=== PATIENT | female | born 1955 | race Caucasian/White ===

== ENCOUNTER 2019-12-26 14:57 | Outpatient (REF) | payer OTHER, SELFPAY ==
--- NOTE | 2019-12-26 15:00 | MM_ITS ---
EXAMINATION: MM SCREENING DIGITAL BREAST TOMOSYNTHESIS, BILATERAL CLINICAL INFORMATION: Screening. Asymptomatic. The lifetime risk of breast cancer based on the Tyrer-Cuzick Model is 17%. COMPARISON: Mammography: 12/20/2018, 11/09/2017, 11/27/2016, 11/02/2016 TECHNIQUE: Digital breast tomosynthesis is performed in both the craniocaudal and mediolateral oblique views along with computer-aided detection (CAD). Synthesized 2D images are generated from the tomosynthesis. FINDINGS: There are scattered areas of fibroglandular density (ACR BI-RADS breast composition Category b). There is no significant mass or architectural abnormality. Small circumscribed nodule anterior medial left breast again noted. No developing density. Calcifications upper outer right breast are more coarse. The axilla and skin contours are unremarkable. MM/MM tomosynthesis screening BI IMPRESSION: No significant changes from prior exam. ASSESSMENT: BI-RADS 2: Benign RECOMMENDATION: Routine annual mammography screening. This patient's information was entered into a reminder system with a target due date for their next mammogram.
== END 2019-12-26 14:58 | disposition home or self-care (01) ==
LOC: HO.MAMMO 14:57
PROVIDERS: PCP Internal Medicine; Visit Provider Internal Medicine
DX: Z12.31 Encounter for screening mammogram for malignant neoplasm of breast (principal)
CPT/HCPCS: 77063; 77067

== ENCOUNTER 2021-01-03 06:25 | Outpatient (REF) | payer OTHER, SELFPAY ==
[2021-01-03 06:32] LABS: MANUAL DIFF FLAG NO
[2021-01-03 07:11] LABS: Basophils Percent Auto 0.6 % (0-2); Eosinophils Absolute Auto 0.1 X10*3/uL (0.0-0.4); Eosinophils Percent Auto 2.1 % (0-4); Hemoglobin 12.9 g/dl (12.0-16.0); Imm Gran Abs Auto 0.01 X10*3/uL (0.00-0.03); Imm Gran Pct Auto 0.2 % (0.0-0.4); Lymphocytes Absolute Auto 2.2 X10*3/uL (1.2-4.9); Lymphocytes Percent Auto 32.6 % (20-40); Mean Corpuscular HGB Conc 33.9 g/dl (31.0-35.0); Mean Corpuscular Hemoglobin 30.8 pg (27.0-33.0); Mean Corpuscular Volume 90.7 fL (80.0-98.0); Mean Platelet Volume 9.4 fL (9.4-12.3); Monocytes Absolute Auto 0.3 X10*3/uL (0.1-1.2); Neutrophils Percent Auto 59.5 % (45-73); Platelet Count 348 X10*3/uL (160-400); Red Blood Count 4.19 X10*6/uL (4.20-5.50); Red Cell Distribution Width 13.3 % (11.0-16.0); White Blood Count 6.7 X10*3/uL (4.8-10.8)
[2021-01-03 07:37] LABS: Alanine Aminotransferase 19 U/L (0-31); Alkaline Phosphatase 93 U/L (39-117); Anion Gap 11 (12-20); Aspartate Amino Transferase 12 U/L (5-31); Bilirubin Total 0.5 mg/dL (0.0-1.0); Blood Urea Nitrogen 9 mg/dL (9-16); Calcium 8.9 mg/dL (8.4-10.2); Carbon Dioxide 24 mmol/L (22-29); Chloride 108 mmol/L (96-108); Cholesterol 203 mg/dL; Estimated Glomerular Filt Rate > 60; Glucose Fasting 100 mg/dL (60-99); HDL Cholesterol 49 mg/dL; LDL Cholesterol Calculated 125 mg/dl; Potassium 4.3 mmol/L (3.3-5.1); Sodium 139 mmol/L (135-145); Total Protein 6.6 g/dL (6.5-8.0); Triglycerides 149 mg/dL
[2021-01-03 08:05] LABS: TSH reflex Free T4 3.15 uIU/mL (0.32-4.0)
[2021-01-03 08:19] LABS: Appearance Urine CLEAR; Color Urine YELLOW; Glucose Urine UA NEG (NEG); Leukocyte Esterase Urine NEG (NEG); Nitrite Urine NEG (NEG); PH 5.5 (5.0-8.0); Specific Gravity - Urine >= 1.030 (1.005-1.025); UACC Culture Trigger NO; Urine Blood TRACE (NEG); Urine Ketones NEG (NEG); Urine Protein NEG (NEG-TRACE)
[2021-01-03 08:54] LABS: Bacteria Urine TRACE /LPF; RBC Urine 0-2 /HPF (0); Squamous Epithelial Cell Urine 2+ /LPF
== END 2021-01-03 06:26 | disposition home or self-care (01) ==
LOC: HO.LAB 06:25
PROVIDERS: PCP Internal Medicine; Visit Provider Internal Medicine
DX: E78.00 Pure hypercholesterolemia, unspecified (principal); R19.7 Diarrhea, unspecified; R00.2 Palpitations
CPT/HCPCS: 36415; 80053; 80061; 81001; 81003; 84443; 85025

== ENCOUNTER → 2021-02-02 13:34 | Outpatient (BNVA) | payer OTHER, SELFPAY | PROVIDERS: PCP Internal Medicine; Referring Provider Internal Medicine; Visit Provider Internal Medicine | DX: R07.2 Precordial pain (principal); R06.02 Shortness of breath; R00.2 Palpitations; I10 Essential (primary) hypertension | CPT/HCPCS: 93005 ==

== ENCOUNTER → 2021-03-22 13:38 | Outpatient (REF) | payer OTHER, SELFPAY ==
--- NOTE | 2021-03-22 13:41 | CA_ITS ---
Transthoracic Echocardiogram Patient (Last, First, Middle): Franca Neri A Gender: Female Date of : 1955 Age: 66 Procedure Date: 03/22/2021 Procedure Type: Transthoracic Echocardiogram Location: OP Height: 154.94 cm Weight: 63.5 kg BSA: 1.62 m2 Heart Rate: bpm BP: 134 / 80 mmHg Synthetic Filament Extruder: Referring MD: Daniel Hogue MD Design Engineer Marine Equipment: Guanaco Smyth MD Symptoms: R06.02 - Shortness of breath Study Quality: Fair ECG Rhythm: Sinus Conclusions: - 1. Normal LV systolic function with impaired relaxation filling pattern 2. Normal cardiac valvular Doppler 3. Normal RV systolic pressure 4. No pericardial effusion Findings Left Ventricle Normal left ventricular size, thickness, and systolic function. The visually estimated ejection fraction is between 60-65%. Spectral Doppler is indicative of an impaired relaxation filling pattern. E/E prime ratio is between 8 and 15 consistent with indeterminate filling pressures. Right Ventricle Normal right ventricular cavity size and systolic function. Atria Both atria are normal in size. Interatrial shunt cannot be excluded. Aortic Valve The aortic valve was not well visualized. There is no aortic valve stenosis. There is no aortic valve regurgitation. Mitral Valve Normal mitral valve structure and function. There is mild mitral annular calcification. There is trace mitral valve regurgitation. There is no mitral valve stenosis. Pulmonic Valve The pulmonic valve was not well visualized. Tricuspid Valve Likely normal tricuspid valve structure and function. There is trace tricuspid valve regurgitation. The right ventricular systolic pressure is normal. The right ventricular systolic pressure is 17 mmHg. There is no evidence of pulmonary hypertension. Great Vessels All visible segments of the aorta are normal in size. The pulmonary artery was not well visualized. Venous The inferior vena cava is normal in size and collapses greater than 50% with inspiration. Pericardium/Pleural There is no evidence of pericardial effusion. Prior Study Comparison No prior study available for comparison. Measurements 2D Linear Measurements IVSd: 0.83 0.6-0.9/0.6-1.0 cm LVIDd: 3.94 3.9-5.3/4.2-5.9 cm LVIDd Index: 2.43 2.4-3.2/2.2-3.1 cm/m2 LVIDs: 2.34 2.0-3.6 cm LVPWd: 0.94 0.7-1.1 cm Ao Root: 2.80 2.1-3.5 cm LA Diam: 3.30 2.7-3.8/3.0-4.0 cm LAIDs Index: 2.04 1.5-2.3 cm/m2 LV Mass: 130.01 67-162/88-224 g LV Mass Index: 80.25 43-95/49-115 g/m2 LVOT Diam: 1.90 3.0+(-)1.3 cm 2D Systolic Function EF 4C: 55.90 >55% EF 2C: 68.00 >55% EF BiP: 62.50 >55% Mitral Valve MV Pk E: 0.64 MV PK A: 0.94 MV Decel Time: 273.00 E/A: 0.70 E'Lateral: 7.07 E'Medial: 6.74 E/E' Med: 9.50 E/E' Lat: 9.00 PHT: 80.00 MVA PHT: 2.75 Decel [place]: 2.34 Aortic Valve AoV Pk Abiodun: 1.38 AoV Mn Abiodun: 0.87 AoV VTI: 0.33 AoV Pk Grad: 8.00 Aov Mn Grad: 4.00 PASCUAL Cont.VTI: 2.06 LVOT LVOT Pk Abiodun: 1.05 LVOT Mn Abiodun: 0.62 LVOT VTI: 0.24 LVOT Pk Grad: 4.00 LVOT Mn Grad: 2.00 LVOT Diam: 1.90 LVOT Area: 2.84 Diastolic Function MV Pk E: 0.64 MV Pk A: 0.94 E/A: 0.70 E'Medial: 6.74 E/E' Med: 9.50 E' Laterial: 7.07 E/E' Lat: 9.00 Tricuspid Valve TR Pk Abiodun: 1.87 TR Pk Grad: 14.00 RA Press: 3.00 RVSP: 17.00 Great Vessels Aorta Ao Root-2D: 2.80 2.0-3.7 cm Ao Asc: 3.60 2.1-3.4 cm Pulmonary Valve PV Pk Abiodun: 0.75 Peak PV Grad: 2.00 Updated in Other Vendor System with Status of Final Guanaco Smyth MD electronically signed on 03/23/2021 6:49:36 PM with status of Final
--- NOTE | 2021-03-22 13:41 | HM_ITS ---
Total monitoring time 3 days. Underlying rhythm is sinus. Minimum heart rate 45/Min. Maximum 115/Min. Average 65/Min. No atrial fibrillation or flutter or AV blocks or pauses. Rare supraventricular ectopy with minimal burden. 3 supraventricular episodes, longest 14 beats. Rare ventricular ectopy. No patient events. MTDD
[2021-03-22 14:30] LABS: C Reactive Protein 0.34 mg/dL (< or = 0.50)
[2021-03-22 14:49] LABS: Erythrocyte Sedimentation Rate 16 MM/HR (0-20)
[2021-03-25 15:46] LABS: Transglutaminase IgA <1.0 U/mL
[2021-03-26 13:46] LABS: Endomysial IgA Antibody Negative (Negative)
== END ==
LOC: HO.CARD 13:38
PROVIDERS: Physician Assistant; Visit Provider Internal Medicine
DX: R06.02 Shortness of breath (principal); R00.2 Palpitations; K52.9 Noninfective gastroenteritis and colitis, unspecified; Q24.9 Congenital malformation of heart, unspecified
CPT/HCPCS: 36415; 85652; 86140; 86231; 86364; 93242; 93306

== ENCOUNTER 2021-03-25 07:25 | Outpatient (REF) | payer OTHER, SELFPAY ==
[2021-03-25 12:13] LABS: Leukocytes Stool Qualitative NEGATIVE (NEGATIVE)
[2021-03-31 23:21] LABS: Calprotectin, Fecal <5 mcg/g
== END 2021-03-25 07:26 | disposition home or self-care (01) ==
LOC: HO.WFDLNP 07:25
PROVIDERS: Visit Provider Physician Assistant
DX: R19.7 Diarrhea, unspecified (principal)
CPT/HCPCS: 83993; 87045; 87046; 87329; 89055

== ENCOUNTER → 2021-04-04 07:54 | Outpatient (REF) | payer OTHER, SELFPAY ==
--- NOTE | ~2021-04-04 | NM_ITS ---
Exercise Myocardial perfusion study Indication: Precordial chest pain to evaluate for myocardial ischemia Technique: The patient was brought in for an exercise perfusion study on 04/04/2021. Patient performed exercise as per Rony protocol and was injected 25 mCi of sestamibi was given intravenously one target HR was achieved. Images were obtained using the SPECT gamma camera interlaced with the gating device. Images were obtained in supine position. Resting perfusion study was performed on 04/05/2021. Patient was administered 25 mCi of sestamibi intravenously at rest. Images were then obtained in supine position. Images obtained with and without CT attenuation. Total DLP 85 mGy-cm. Images were processed with the software and compared side to side in short axis, horizontal long axis and vertical long axis views. Findings: The stress perfusion study showed both attenuated as well as non attenuated corrected images show normal uptake of radiotracer in all segments of LV myocardium.. The gated study shows normal LV systolic function with calculated LVEF of 67%. LV cavity is normal in size. The gated study shows normal systolic wall thickening and contraction of all segments. There is no transient ischemic dilation. Resting study shows non attenuated images show normal uptake of radiotracer in all segments myocardium. Gating at rest reveals normal systolic wall motion with ejection fraction at 64%. The findings are consistent with normal myocardial perfusion. NM/NM cardiolite stress test Impression: 1. Normal myocardial perfusion 2. Gated LVEF is 67% 3. Transient ischemic dilatation not present Stress EKG is equivocal for ischemia
--- NOTE | 2021-04-04 07:57 | CA_ITS ---
Acquisition Time: 2021-04-04 07:53:07 Total Exercise Time: 00:04:03 Test Indications: Dyspnea Medications: ALBUTEROL BUPRPION COLEEVALAM Protocol: BRETT Max HR: 222 BPM 142% of Pred: 156 BPM Max BP: 188/094 mmHG Max Work Load: 5.4 METS Exercise stress test with exercise 4 min 3 sec of Brett protocol, with report of moderate shortness of breath, dizziness, mild tightness in chest and significant artifact on monitor. Treadmill placed in recovery, Heart rate up to 95% MPHR and held > 85% for next 2 minutes as she marched in place. Nuclear injection was completed. Normotensive response to exercise, without noted arrythmia, with artifiact at peak exercise, without EKG changes of ischemia in recovery. In recovery her symptoms fully resolved. Nuclear images pending. Test reviewed with Dr Nuñez Referred By: Daniel Hogue Overread By: RAMESH COOPER
== END ==
LOC: HO.CARD 07:54
PROVIDERS: PCP Internal Medicine; Visit Provider Internal Medicine
DX: R07.2 Precordial pain (principal)
CPT/HCPCS: 78452; 93017; A9500

== ENCOUNTER → 2021-04-19 13:27 | Outpatient (BNVA) | payer OTHER, SELFPAY | PROVIDERS: PCP Internal Medicine; Referring Provider Internal Medicine; Visit Provider Physician Assistant ==

== ENCOUNTER → 2021-04-26 13:45 | Outpatient (BNVA) | payer OTHER, SELFPAY | PROVIDERS: PCP Internal Medicine; Referring Provider Internal Medicine; Visit Provider Internal Medicine ==

== ENCOUNTER 2021-07-14 10:20 | Day surgery (SDC) | payer OTHER, SELFPAY ==
[2021-07-11 11:27] VITALS: BMI 27.0
--- NOTE | 2021-07-13 09:38 | HO.ANESPROP2 ---
Documented by User: Jane Car NP 07/13/21 09:41 HPI - Anesthesia Eval Consult details Narrative: 66yo F for Upper Endoscopy and Colonoscopy Cardiac cleared [facility] Active Problems Active Problems: All Active Problems (Updated 05/02/21 @ 04:00 by Fran Chua MD) Acid reflux (Acute) Arthritis (Acute) Cardiac abnormality (Acute) Chronic diarrhea (Acute) SOB (shortness of breath) (Acute) Precordial chest pain (Acute) Essential hypertension (Acute) Overweight (BMI 25.0-29.9) (Acute) Anxiety (Acute) Pure hypercholesterolemia (Acute) Frequent diarrhea (Acute) Palpitations (Acute) Psoriasis (Acute) Past Medical History Medical History (Updated 05/02/21 @ 04:00 by Fran Chua MD) Anxiety Arthritis Cardiac abnormality Fibromyalgia MGUS (monoclonal gammopathy of unknown significance) Neuropathy of right lower extremity Overweight (BMI 25.0-29.9) Psoriasis Pure hypercholesterolemia Family History Family History Father Mother Bladder cancer Arthritis Sister Breast cancer Sister Breast cancer Maternal Aunt Breast cancer Surgical History Surgical History History of bowel resection History of removal of cyst History of tonsillectomy Status post cryoablation Social History Social History Housing: House Alcohol intake: never Patient Tobacco Use Status: Former Tobacco user Tobacco use type: Cigarette e-Cigarette/Vaping Use: Never Used Second Hand Smoke Exposure: No Use of substances other than those prescribed or required for medical reasons: No Are you DNR?: No Advance Directives: No Advance Directives Information Provided: Yes service: No Current occupational status: employed Cognitive needs: No Hearing needs: No Vision needs: No Meds Allergies Allergy/AdvReac Type Severity Reaction Status Date / Time prochlorperazine Allergy Severe SEIZURES Verified 05/01/21 23:55 [From COMPAZINE] Home Medications Medication Instructions Recorded Confirmed Last Taken Type diphenoxylate-atropine 2.5 1 tab PO DAILY PRN 01/02/20 07/11/21 Unknown History mg-0.025 mg tablet ibuprofen 600 mg tablet 1 tab PO QID PRN 01/02/20 07/11/21 Unknown History amlodipine 5 mg tablet 1 tab PO DAILY 07/11/21 07/11/21 Unknown History Exam Exam Date and Time: July 13, 2021 0938 Height,Weight and Vital Signs: Height 5 ft 1 in Weight 64.864 kg Narrative Narrative: EKG 01/2021 sinus rhythm at 62/Min; no significant ST-T changes and otherwise unremarkable Holter 02/2021 Total monitoring time 3 days.? Underlying rhythm is sinus.? Minimum heart rate 45/Min.? Maximum 115/Min.? Average 65/Min.? No atrial fibrillation or flutter or AV blocks or pauses.? Rare supraventricular ectopy with minimal burden.? 3 supraventricular episodes, longest 14 beats.? Rare ventricular ectopy.? No patient events. ECHO 02/2021 Conclusions: - 1. Normal LV systolic function with impaired relaxation filling pattern? 2. Normal cardiac valvular Doppler ? 3. Normal RV systolic pressure ? 4.? No pericardial effusion? ? NM cardiolite stress test 03/2021 Impression: ? 1.? Normal myocardial perfusion 2.? Gated LVEF is 67% 3. Transient ischemic dilatation not present ? Stress EKG is equivocal for ischemia Assessment and Plan Assessment Anesthesia Assessment: Chart Reviewed Documented by User: Sha Montes De Oca MD 07/14/21 14:03 [facility] Past Medical History Medical History (Updated 05/02/21 @ 04:00 by Fran Chua MD) Anxiety Arthritis Cardiac abnormality Fibromyalgia MGUS (monoclonal gammopathy of unknown significance) Neuropathy of right lower extremity Overweight (BMI 25.0-29.9) Psoriasis Pure hypercholesterolemia Family History Family History Father Mother Bladder cancer Arthritis Sister Breast cancer Sister Breast cancer Maternal Aunt Breast cancer Family history of problems with anesthesia: No Surgical History Surgical History History of bowel resection History of removal of cyst History of tonsillectomy Status post cryoablation History of Problems with Anesthesia: No Social History Social History Housing: House Alcohol intake: never Patient Tobacco Use Status: Former Tobacco user Tobacco use type: Cigarette e-Cigarette/Vaping Use: Never Used Second Hand Smoke Exposure: No Use of substances other than those prescribed or required for medical reasons: No Are you DNR?: No Advance Directives: No Advance Directives Information Provided: Yes service: No Current occupational status: employed Cognitive needs: No Hearing needs: No Vision needs: No Meds Allergies Allergy/AdvReac Type Severity Reaction Status Date / Time prochlorperazine Allergy Severe SEIZURES Verified 05/01/21 23:55 [From COMPAZINE] Home Medications Medication Instructions Recorded Confirmed Last Taken Type diphenoxylate-atropine 2.5 1 tab PO DAILY PRN 01/02/20 07/11/21 Unknown History mg-0.025 mg tablet ibuprofen 600 mg tablet 1 tab PO QID PRN 01/02/20 07/11/21 Unknown History amlodipine 5 mg tablet 1 tab PO DAILY 07/11/21 07/11/21 Unknown History Exam Airway Loose/Missing/Broken Teeth: Yes Assessment and Plan Assessment Anesthesia Assessment: Anesthesia Plan Discussed Final Anesthetic Review Family History of Problems with Anesthesia: No History of Problems with Anesthesia: No NPO: Yes ASA Class: III Final Preanesthetic Review: No Changes in Pt Med Stat, Meds/Allgs Chart Reviewed, Consent Obtained/Reviewed and Anes Risks/Benef Reviewed Patient Risk: Intermediate Procedure Risk: Low Anesthetic Plan Anesthetic Plan: MAC: Disposition: Standard PACU
[2021-07-14 10:29] VITALS: BMI 26.4
[2021-07-14 10:38] VITALS: BP 151/91; PULSE 79; RESP 16; TEMP 36.6; O2SAT 96
[2021-07-14] MEDS: Lactated Ringers 1,000 ML 100 ML IVCONT (10:52)
--- NOTE | 2021-07-14 12:29 | P.HPSUR_ITS ---
Pre-Procedural Eval Section A Date of Service: 07/14/21 Section B Chief Complaint: diarrhea Relevant Family History (Specify if Yes): No Relevant Social History: None Present Medications: see Short Stay Collaborative assessment Medical History: Significant History (Anxiety Arthritis Cardiac abnormality Fibromyalgia MGUS (monoclonal gammopathy of unknown significance) Neuropathy of right lower extremity Overweight (BMI 25.0-29.9) Psoriasis Pure hypercholesterolemia) History of Previous Operations: Relevant previous surgery/procedure and date(s) (History of bowel resection History of removal of cyst History of tonsillectomy Status post cryoablation) Allergies: Allergies Allergy/AdvReac Type Severity Reaction Status Date / Time prochlorperazine Allergy Severe SEIZURES Verified 05/01/21 23:55 [From COMPAZINE] Review of Systems Sugical H&P ROS: Negative: Constitution, Cardiovascular, Respiratory, Neurological, Psychiatric, Hem-Onc, Allergic/Immunologic, Gastrointestinal, Genitourinary, Musculoskeletal, Integumentary, Endocrine and Eyes/Ears/Nos e/Throat Exam Surgical H&P Exam: Normal: HEENT, Normal: Heart, Normal: Lungs, Normal: Extremities, Normal: Abdomen, Normal: Skin and Normal: Neurological Plan Diagnosis/Plan: Unchanged I have reviewed the history and physical and performed a pertinent physical examination on my patient. No changes have occurred unless specified.
--- NOTE | 2021-07-14 12:39 | PM.OP ---
Brief Operative Note Date of Service: 07/14/21 Pre-op diagnosis: diarrhea Post-op diagnosis: same Procedure: see op note Surgeon: Onesimo Melvin MD Anesthesia: MAC Was an Barrer And Tacker used for this Procedure?: No Estimated blood loss (mL): 0 Condition: stable Disposition: PACU
--- NOTE | 2021-07-14 12:39 | W.PM.OPN ---
Operative Note Operative Note Date of Service: 07/14/21 Narrative: Operative Information Procedure Description: EGD, Colonoscopy Indication: diarrhea Anesthesia: MAC FLEXIBLE TRANSORAL UPPER GASTROINTESTINAL ENDOSCOPY AND COLONOSCOPY PROCEDURE NOTE UPPER ENDOSCOPY Consent: Indications for the procedure and potential complications of bleeding, perforation, reaction to medications and missed diagnosis were discussed with the patient and informed consent was obtained. Instrument: Olympus GIF H 190 J mid size upper endoscope Monitoring: Vital signs and clinical assessment, continuous EKG monitoring, Pulse oximetry, Carbon Dioxide monitoring and blood pressure monitoring were done throughout the procedure. Procedure: The patient was placed in the left lateral decubitis position and pre-procedure medications were administered and a bite block was placed. The endoscope was inserted into the mouth and advanced under direct vision to the third part of duodenum. A careful inspection was made as the upper endoscope was withdrawn including a retroflexed examination of the proximal stomach; Findings and interventions are described below. Findings: Larynx:normal Esophagus: GE junction at 38 cm, diaphragm hiatus at 38 cm, mild esophagitis, bx taken from GEJ and random esophagus in separate jars Stomach: Mild erythematous mucosa. Biopsies were obtained. Grade 2 flap valve on retroflexed examination of the cardia. Duodenum: Normal bulb and descending duodenum, bx taken Intervention: Biopsies as noted above COLONOSCOPY Instrument: Olympus variable stiffness pediatric scope 190L Colonoscopy Monitoring: Vital signs and clinical assessment, continuous EKG monitoring, Pulse oximetry, Carbon Dioxide monitoring and blood pressure monitoring were done throughout the procedure. Colon withdrawal time was 15 minutes. Procedure: The patient was placed in the left lateral decubitis position and pre-procedure medications were administered. After a digital rectal examination of the ano-rectum, the video colonoscope was inserted into the rectum and advanced through the colon to the cecum/TI. The colonoscope was slowly withdrawn in a retrograde panoramic fashion and the colon mucosa was carefully examined including a retroflexed view of the rectum. Findings and interventions are described below. Procedure Difficulty:easy Findings: Terminal Ileum-normal, bx taken random colon bx taken Cecum:normal Ascending Colon: 6-8 mm sessile polyp injected with ORISE the removed with cold forceps Transverse Colon -normal Descending Colon:normal Sigmoid Colon: 7-9 mm sessile polyp removed with cold forceps Rectum: Retroflexion with small internal hemorrhoids, grade I Anorectum - normal Colon preparation: [place] Bowel Preparation Scale Right colon; 2 Transverse colon: 2 Left colon; 2 (0 = Unprepared colon segment with mucosa not seen due to solid stool that cannot be cleared. 1 = Portion of mucosa of the colon segment seen, but other areas of the colon segment not well seen due to staining, residual stool and/or opaque liquid. 2 = Minor amount of residual staining, small fragments of stool and/or opaque liquid, but mucosa of colon segment seen well. 3 = Entire mucosa of colon segment seen well with no residual staining, small fragments of stool or opaque liquid) Impression and Post Procedure Diagnosis: Endoscopy Findings: gastritis esophagitis Colonoscopy Findings: polyps internal hemorrhoids Plan: Await Pathology results Repeat Colonoscopy in 5-6 years if adenomatous. 10 yrs if benign or earlier if clinically indicated High fiber diet leaflet avoid straining at stool, epsom salts and sitz bath, anusol supps or cream consider trial of cholestyramine or welchol Above findings were reviewed with the patient and relevant handouts were provided if indicated.
[2021-07-14 13:31] VITALS: BP 131/83; PULSE 102; RESP 18; TEMP 36.4; O2SAT 95
[2021-07-14 13:46] VITALS: BP 130/90; PULSE 87; RESP 18; O2SAT 98
[2021-07-14] MEDS: ondansetron HCL 4 MG/2 ML VIAL IVPUSH (13:59)
[2021-07-14 14:01] VITALS: BP 147/81; PULSE 87; RESP 17; O2SAT 98
[2021-07-14 14:16] VITALS: BP 147/81; PULSE 84; RESP 20; TEMP 36.4; O2SAT 98
== END 2021-07-14 14:32 | disposition home or self-care (01) ==
PROVIDERS: PCP Internal Medicine; Visit Provider Internal Medicine Gastroenterology
PROC: (CPT 45380; principal; 2021-07-14 13:00)
DX: K52.9 Noninfective gastroenteritis and colitis, unspecified (principal); D12.2 Benign neoplasm of ascending colon; D12.5 Benign neoplasm of sigmoid colon; K64.0 First degree hemorrhoids; K21.9 Gastro-esophageal reflux disease without esophagitis; K29.50 Unspecified chronic gastritis without bleeding; K20.80 Other esophagitis without bleeding; E78.00 Pure hypercholesterolemia, unspecified; I10 Essential (primary) hypertension; R00.2 Palpitations; K44.9 Diaphragmatic hernia without obstruction or gangrene; D47.2 Monoclonal gammopathy; G57.91 Unspecified mononeuropathy of right lower limb; M79.7 Fibromyalgia; L40.9 Psoriasis, unspecified; Z79.1 Long term (current) use of non-steroidal anti-inflammatories (NSAID); Z79.899 Other long term (current) drug therapy; Z88.8 Allergy status to other drugs, medicaments and biological substances; Z90.49 Acquired absence of other specified parts of digestive tract; Z87.891 Personal history of nicotine dependence
CPT/HCPCS: 45380; 45381; 43239; 88305; 88341; 88342; J2250; J2405

== ENCOUNTER → 2021-07-28 14:10 | Outpatient (BNVA) | payer OTHER, SELFPAY | PROVIDERS: PCP Internal Medicine; Visit Provider Physician Assistant | DX: Z13.89 Encounter for screening for other disorder (principal) ==

== ENCOUNTER 2021-09-05 15:17 | Outpatient (REF) | payer OTHER, SELFPAY | END 2021-09-05 15:18 | disposition home or self-care (01) | LOC: HO.LAB 15:17 | PROVIDERS: PCP Internal Medicine; Visit Provider Otolaryngology | DX: J30.89 Other allergic rhinitis (principal) | CPT/HCPCS: 36415 ==

== ENCOUNTER 2021-10-13 15:30 | Outpatient (REF) | payer OTHER, SELFPAY ==
[2021-10-18 10:27] LABS: Immunoglobulin E 29 kU/L (<OR=114)
[2021-10-25 09:46] LABS: Prostaglandin D2 Random Urine 315 ng/liter
== END 2021-10-13 15:31 | disposition home or self-care (01) ==
LOC: HO.LAB 15:30
PROVIDERS: PCP Internal Medicine; Visit Provider Internal Medicine Gastroenterology
DX: D19.7 Benign neoplasm of mesothelial tissue of other sites (principal); D47.02 Systemic mastocytosis
CPT/HCPCS: 36415; 82785; 84150; 86003

== ENCOUNTER 2021-10-15 10:44 | Outpatient (REF) | payer OTHER, SELFPAY ==
[2021-10-22 11:26] LABS: Metanephrine, Free 24U 100 mcg/24 h (90-315); Normetanephrine, Free 24U 330 mcg/24 h (122-676); Total Metanephrine, Free 24U 430 mcg/24 h (224-832); Total Volume 24U 500 mL
== END 2021-10-15 10:45 | disposition home or self-care (01) ==
LOC: HO.LNP 10:44
PROVIDERS: Visit Provider Internal Medicine Gastroenterology
DX: D47.02 Systemic mastocytosis (principal); R19.7 Diarrhea, unspecified
CPT/HCPCS: 83835

== ENCOUNTER 2021-10-17 12:11 | Outpatient (REF) | payer OTHER, SELFPAY ==
[2021-10-24 15:23] LABS: Pancreatic Elastase-1 >500 mcg/g
== END 2021-10-17 12:12 | disposition home or self-care (01) ==
LOC: HO.LNP 12:11
PROVIDERS: Visit Provider Internal Medicine Gastroenterology
DX: D47.02 Systemic mastocytosis (principal); R19.7 Diarrhea, unspecified
CPT/HCPCS: 82656

== ENCOUNTER 2021-10-18 12:47 | Outpatient (REF) | payer OTHER, SELFPAY | END 2021-10-18 12:48 | disposition home or self-care (01) | LOC: HO.LAB 12:47 | PROVIDERS: PCP Internal Medicine; Visit Provider Internal Medicine Gastroenterology | DX: Z13.89 Encounter for screening for other disorder (principal) ==

== ENCOUNTER 2021-10-20 06:31 | Outpatient (REF) | payer OTHER, SELFPAY ==
[2021-10-20 06:42] LABS: MANUAL DIFF FLAG NO
[2021-10-20 07:30] LABS: Basophils Absolute Auto 0.1 X10*3/uL (0.0-0.2); Basophils Percent Auto 0.7 % (0-2); Eosinophils Absolute Auto 0.2 X10*3/uL (0.0-0.4); Eosinophils Percent Auto 2.4 % (0-4); Hemoglobin 13.2 g/dl (12.0-16.0); Imm Gran Abs Auto 0.03 X10*3/uL (0.00-0.03); Imm Gran Pct Auto 0.4 % (0.0-0.4); Lymphocytes Absolute Auto 3.4 X10*3/uL (1.2-4.9); Lymphocytes Percent Auto 41.8 % (20-40); Mean Corpuscular HGB Conc 33.8 g/dl (31.0-35.0); Mean Corpuscular Hemoglobin 31.1 pg (27.0-33.0); Mean Corpuscular Volume 91.8 fL (80.0-98.0); Mean Platelet Volume 10.6 fL (9.4-12.3); Monocytes Absolute Auto 0.5 X10*3/uL (0.1-1.2); Monocytes Percent Auto 5.9 % (2-11); Neutrophils Absolute Auto 3.9 x10*3/uL (2.0-8.3); Neutrophils Percent Auto 48.8 % (45-73); Platelet Count 295 X10*3/uL (160-400); Red Blood Count 4.25 X10*6/uL (4.20-5.50)
[2021-10-20 07:36] LABS: Alanine Aminotransferase 22 U/L (0-31); Albumin Level 3.9 g/dL (3.5-5.0); Alkaline Phosphatase 104 U/L (39-117); Anion Gap 16 (12-20); Aspartate Amino Transferase 18 U/L (5-31); Bilirubin Total 0.3 mg/dL (0.0-1.0); Blood Urea Nitrogen 12 mg/dL (9-16); Calcium 8.6 mg/dL (8.4-10.2); Carbon Dioxide 19 mmol/L (22-29); Chloride 109 mmol/L (96-108); Cholesterol 239 mg/dL; Estimated Glomerular Filt Rate > 60; Glucose Fasting 105 mg/dL (60-99); HDL Cholesterol 53 mg/dL; LDL Cholesterol Calculated 165 mg/dl; Potassium 4.6 mmol/L (3.3-5.1); Sodium 139 mmol/L (135-145); Triglycerides 106 mg/dL
[2021-10-20 07:59] LABS: TSH reflex Free T4 4.11 uIU/mL (0.32-4.0); Vitamin D 25-OH Total 25.4 ng/mL (>30)
[2021-10-20 08:16] LABS: Appearance Urine Clear; Color Urine Yellow; Glucose Urine UA Negative (Negative); Leukocyte Esterase Urine Negative (Negative); Nitrite Urine Negative (Negative); PH 5.5 (5.0-8.0); Specific Gravity - Urine >= 1.030 (1.005-1.025); Urine Blood Negative (Negative); Urine Ketones Negative (Negative); Urine Protein Negative (Neg-Trace)
[2021-10-20 08:44] LABS: Free T4 (Free Thyroxine) 0.79 ng/dL (0.71-1.85)
== END 2021-10-20 06:32 | disposition home or self-care (01) ==
LOC: HO.LAB 06:31
PROVIDERS: PCP Internal Medicine; Visit Provider Internal Medicine
DX: I10 Essential (primary) hypertension (principal); E55.9 Vitamin D deficiency, unspecified; E78.00 Pure hypercholesterolemia, unspecified
CPT/HCPCS: 36415; 80053; 80061; 81003; 82306; 84439; 84443; 85025

== ENCOUNTER 2021-10-21 09:10 | Outpatient (REF) | payer OTHER, SELFPAY ==
--- NOTE | ~2021-10-21 | MM_ITS ---
EXAMINATION: MM SCREENING DIGITAL BREAST TOMOSYNTHESIS, BILATERAL CLINICAL INFORMATION: Screening. Asymptomatic. The lifetime risk of breast cancer based on the Tyrer-Cuzick Model is 15%. COMPARISON: Mammography: 12/26/2019, 12/20/2018, 11/09/2017 TECHNIQUE: Digital breast tomosynthesis is performed in both the craniocaudal and mediolateral oblique views along with computer-aided detection (CAD). Synthesized 2D images are generated from the tomosynthesis. Additional left MLO view is provided. FINDINGS: There are scattered areas of fibroglandular density (ACR BI-RADS breast composition Category b). Parenchymal pattern is similar to prior exams and there is no interval mass or architectural abnormality or developing density. Incidental low left axillary tail nodes are again noted. The axilla and skin contours are unremarkable. No abnormal calcifications left breast. Right breast has grouped predominantly coarse calcifications mid upper outer quadrant with increased number versus superimposed digital processing artifact. Tomography suggesting possible vascular etiology. Patient will be recalled for additional imaging. MM/MM tomosynthesis screening BI IMPRESSION: Right: -Grouped possibly vascular calcifications mid upper outer right breast increased versus superimposed digital processing artifact. Left: -No mammographic evidence of malignancy. ASSESSMENT: BI-RADS 0: Incomplete - Need Additional Imaging Evaluation RECOMMENDATION: 1. Additional views of the right breast (magnification CC, magnification ML). 2. Radiology department staff will contact the patient for additional imaging. This patient's information was entered into a reminder system with a target due date for their next mammogram.
== END 2021-10-21 09:11 | disposition home or self-care (01) ==
LOC: HO.MAMMO 09:10
PROVIDERS: PCP Internal Medicine; Visit Provider Internal Medicine
DX: Z12.31 Encounter for screening mammogram for malignant neoplasm of breast (principal)
CPT/HCPCS: 77063; 77067

== ENCOUNTER 2021-11-03 14:23 | Outpatient (REF) | payer OTHER, SELFPAY | END 2021-11-03 14:24 | disposition home or self-care (01) | LOC: HO.LAB 14:23 | PROVIDERS: Visit Provider Nurse Practitioner Family | DX: Z20.822 Contact with and (suspected) exposure to COVID-19 (principal); R30.0 Dysuria; R05.9 Cough, unspecified | CPT/HCPCS: 87086; U0003; U0005 ==

== ENCOUNTER 2022-04-15 07:26 | Outpatient (REF) | payer OTHER, SELFPAY ==
[2022-04-15 07:52] LABS: MANUAL DIFF FLAG NO
[2022-04-15 08:43] LABS: Basophils Absolute Auto 0.1 X10*3/uL (0.0-0.2); Basophils Percent Auto 0.8 % (0-2); Eosinophils Absolute Auto 0.2 X10*3/uL (0.0-0.4); Eosinophils Percent Auto 2.5 % (0-4); Hematocrit 39.4 % (37.0-47.0); Hemoglobin 13.1 g/dl (12.0-16.0); Imm Gran Abs Auto 0.03 X10*3/uL (0.00-0.03); Imm Gran Pct Auto 0.4 % (0.0-0.4); Lymphocytes Absolute Auto 2.5 X10*3/uL (1.2-4.9); Mean Corpuscular HGB Conc 33.2 g/dl (31.0-35.0); Mean Corpuscular Hemoglobin 30.7 pg (27.0-33.0); Mean Corpuscular Volume 92.3 fL (80.0-98.0); Mean Platelet Volume 9.7 fL (9.4-12.3); Monocytes Absolute Auto 0.4 X10*3/uL (0.1-1.2); Monocytes Percent Auto 5.5 % (2-11); Neutrophils Absolute Auto 4.8 x10*3/uL (2.0-8.3); Neutrophils Percent Auto 59.8 % (45-73); Platelet Count 374 X10*3/uL (160-400); Red Blood Count 4.27 X10*6/uL (4.20-5.50); Red Cell Distribution Width 13.4 % (11.0-16.0)
[2022-04-15 08:48] LABS: Appearance Urine Clear; Color Urine Yellow; Glucose Urine UA Negative (Negative); Leukocyte Esterase Urine Trace (Negative); Nitrite Urine Negative (Negative); PH 7.5 (5.0-9.0); Specific Gravity - Urine 1.025 (1.005-1.025); UMIC TRIGGER UACC YES; Urine Blood Negative (Negative); Urine Ketones Negative (Negative); Urine Protein Negative (Neg-Trace)
[2022-04-15 08:51] LABS: Bacteria Urine None Seen (None Seen); Hyaline Casts Urine 0-2 /LPF (0-2); RBC Urine 0-2 /HPF (0-2); WBC Urine 0-5 /HPF (0-5)
[2022-04-15 09:16] LABS: Alanine Aminotransferase 34 U/L (0-31); Alkaline Phosphatase 131 U/L (39-117); Anion Gap 13 (12-20); Aspartate Amino Transferase 18 U/L (5-31); Bilirubin Total 0.3 mg/dL (0.0-1.0); Blood Urea Nitrogen 11 mg/dL (9-16); Carbon Dioxide 22 mmol/L (22-29); Chloride 112 mmol/L (96-108); Cholesterol 242 mg/dL; Estimated Glomerular Filt Rate > 60; Glucose Fasting 105 mg/dL (60-99); HDL Cholesterol 59 mg/dL; LDL Cholesterol Calculated 152 mg/dl; Potassium 4.8 mmol/L (3.3-5.1); Sodium 142 mmol/L (135-145); Total Protein 6.6 g/dL (6.5-8.0); Triglycerides 156 mg/dL
[2022-04-15 09:51] LABS: Folate 2.2 ng/mL (> or = 4.0); Vitamin B12 216 pg/mL (200-900); Vitamin D 25-OH Total 13.1 ng/mL (>30)
[2022-04-15 10:51] LABS: Free T4 (Free Thyroxine) 0.81 ng/dL (0.71-1.85)
== END 2022-04-15 07:27 | disposition home or self-care (01) ==
LOC: HO.LAB 07:26
PROVIDERS: PCP Internal Medicine; Visit Provider Internal Medicine
DX: E53.8 Deficiency of other specified B group vitamins (principal); E78.00 Pure hypercholesterolemia, unspecified; E55.9 Vitamin D deficiency, unspecified; I10 Essential (primary) hypertension
CPT/HCPCS: 36415; 80053; 80061; 81001; 82306; 82607; 82746; 84439; 84443; 85025

== ENCOUNTER 2022-07-22 07:43 | Outpatient (REF) | payer OTHER, SELFPAY ==
[2022-07-22 08:00] LABS: MANUAL DIFF FLAG NO
[2022-07-22 08:44] LABS: Basophils Absolute Auto 0.1 X10*3/uL (0.0-0.2); Basophils Percent Auto 0.7 % (0-2); Eosinophils Absolute Auto 0.2 X10*3/uL (0.0-0.4); Eosinophils Percent Auto 3.3 % (0-4); Hematocrit 39.7 % (37.0-47.0); Hemoglobin 13.4 g/dl (12.0-16.0); Imm Gran Abs Auto 0.02 X10*3/uL (0.00-0.03); Imm Gran Pct Auto 0.3 % (0.0-0.4); Lymphocytes Absolute Auto 2.2 X10*3/uL (1.2-4.9); Lymphocytes Percent Auto 32.9 % (20-40); Mean Corpuscular HGB Conc 33.8 g/dl (31.0-35.0); Mean Corpuscular Hemoglobin 30.2 pg (27.0-33.0); Mean Corpuscular Volume 89.6 fL (80.0-98.0); Mean Platelet Volume 9.8 fL (9.4-12.3); Monocytes Absolute Auto 0.4 X10*3/uL (0.1-1.2); Monocytes Percent Auto 5.5 % (2-11); Neutrophils Absolute Auto 3.8 x10*3/uL (2.0-8.3); Neutrophils Percent Auto 57.3 % (45-73); Platelet Count 344 X10*3/uL (160-400); Red Blood Count 4.43 X10*6/uL (4.20-5.50); Red Cell Distribution Width 12.4 % (11.0-16.0); White Blood Count 6.7 X10*3/uL (4.8-10.8)
[2022-07-22 09:02] LABS: Appearance Urine Clear; Color Urine Yellow; Glucose Urine UA Negative (Negative); Leukocyte Esterase Urine Negative (Negative); Nitrite Urine Negative (Negative); Urine Blood Negative (Negative); Urine Ketones Negative (Negative); Urine Protein Negative (Neg-Trace)
[2022-07-22 09:17] LABS: Alanine Aminotransferase 26 U/L (0-31); Albumin Level 4.2 g/dL (3.5-5.0); Alkaline Phosphatase 133 U/L (39-117); Anion Gap 13 (12-20); Aspartate Amino Transferase 13 U/L (5-31); Bilirubin Total 0.5 mg/dL (0.0-1.0); Blood Urea Nitrogen 9 mg/dL (9-16); Calcium 9.4 mg/dL (8.4-10.2); Carbon Dioxide 25 mmol/L (22-29); Chloride 109 mmol/L (96-108); Cholesterol 192 mg/dL; Estimated Glomerular Filt Rate > 60; Glucose Fasting 116 mg/dL (60-99); HDL Cholesterol 54 mg/dL; LDL Cholesterol Calculated 108 mg/dl; Potassium 4.5 mmol/L (3.3-5.1); Sodium 142 mmol/L (135-145); Triglycerides 151 mg/dL
[2022-07-22 09:48] LABS: Folate 19.6 ng/mL (> or = 4.0); TSH reflex Free T4 5.67 uIU/mL (0.32-4.0); Vitamin B12 1009 pg/mL (200-900); Vitamin D 25-OH Total 36.3 ng/mL (>30)
[2022-07-22 10:38] LABS: Free T4 (Free Thyroxine) 0.76 ng/dL (0.71-1.85)
== END 2022-07-22 07:44 | disposition home or self-care (01) ==
LOC: HO.LAB 07:43
PROVIDERS: PCP Internal Medicine; Visit Provider Internal Medicine
DX: E55.9 Vitamin D deficiency, unspecified (principal); I10 Essential (primary) hypertension; E53.8 Deficiency of other specified B group vitamins; E78.00 Pure hypercholesterolemia, unspecified
CPT/HCPCS: 36415; 80053; 80061; 81003; 82306; 82607; 82746; 84439; 84443; 85025

== ENCOUNTER 2022-11-10 15:20 | Outpatient (REF) | payer OTHER, SELFPAY ==
--- NOTE | ~2022-11-10 | MM_ITS ---
EXAMINATION: MM SCREENING DIGITAL BREAST TOMOSYNTHESIS, BILATERAL CLINICAL INFORMATION: Screening. Asymptomatic. COMPARISON: Mammography: This study is compared with prior exams dating back to 2017. TECHNIQUE: Digital breast tomosynthesis is performed in both the craniocaudal and mediolateral oblique views along with computer-aided detection (CAD). Synthesized 2D images are generated from the tomosynthesis. FINDINGS: There are scattered areas of fibroglandular density (ACR BI-RADS breast composition Category b). There are no significant masses, abnormal calcifications, or other abnormalities. There are long-standing, benign calcifications in the upper outer quadrant of the right breast. They are congressional representative of milk of calcium. MM/MM tomosynthesis screening BI IMPRESSION: No mammographic evidence of malignancy. ASSESSMENT: BI-RADS BI-RADS 2 - Benign Findings RECOMMENDATION: Routine annual mammography screening. 1 year F/U This examination should not preclude the clinical evaluation of a suspicious palpable abnormality. This patient's information was entered into a reminder system with a target due date for their next mammogram.
== END 2022-11-10 15:21 | disposition home or self-care (01) ==
LOC: HO.MAMMO 15:20
PROVIDERS: PCP Internal Medicine; Visit Provider Internal Medicine
DX: Z12.31 Encounter for screening mammogram for malignant neoplasm of breast (principal)
CPT/HCPCS: 77063; 77067

== ENCOUNTER → 2022-11-10 15:30 | Outpatient (BNV) | payer OTHER, SELFPAY | PROVIDERS: PCP Internal Medicine; Visit Provider Radiology Diagnostic Radiology | DX: Z12.31 Encounter for screening mammogram for malignant neoplasm of breast (principal) | CPT/HCPCS: 77063; 77067 ==

== ENCOUNTER 2022-11-25 07:20 | Outpatient (REF) | payer OTHER, SELFPAY ==
[2022-11-25 07:51] LABS: MANUAL DIFF FLAG NO
[2022-11-25 08:13] LABS: Basophils Absolute Auto 0.1 X10*3/uL (0.0-0.2); Basophils Percent Auto 1.1 % (0-2); Eosinophils Absolute Auto 0.2 X10*3/uL (0.0-0.4); Hematocrit 41.2 % (37.0-47.0); Hemoglobin 13.6 g/dl (12.0-16.0); Imm Gran Abs Auto 0.02 X10*3/uL (0.00-0.03); Imm Gran Pct Auto 0.3 % (0.0-0.4); Lymphocytes Absolute Auto 2.7 X10*3/uL (1.2-4.9); Lymphocytes Percent Auto 43.1 % (20-40); Mean Corpuscular Volume 90.7 fL (80.0-98.0); Mean Platelet Volume 9.9 fL (9.4-12.3); Monocytes Absolute Auto 0.4 X10*3/uL (0.1-1.2); Monocytes Percent Auto 6.1 % (2-11); Neutrophils Absolute Auto 2.9 x10*3/uL (2.0-8.3); Neutrophils Percent Auto 46.4 % (45-73); Platelet Count 275 X10*3/uL (160-400); Red Blood Count 4.54 X10*6/uL (4.20-5.50); Red Cell Distribution Width 12.5 % (11.0-16.0); White Blood Count 6.4 X10*3/uL (4.8-10.8)
[2022-11-25 08:25] LABS: Appearance Urine Clear; Color Urine Yellow; Glucose Urine UA Negative (Negative); Leukocyte Esterase Urine Negative (Negative); Nitrite Urine Negative (Negative); Specific Gravity - Urine 1.025 (1.005-1.025); Urine Blood Negative (Negative); Urine Ketones Negative (Negative); Urine Protein Negative (Neg-Trace)
[2022-11-25 09:12] LABS: Alanine Aminotransferase 37 U/L (0-31); Albumin Level 4.2 g/dL (3.5-5.0); Alkaline Phosphatase 81 U/L (39-117); Anion Gap 16 (12-20); Aspartate Amino Transferase 15 U/L (5-31); Bilirubin Total 0.4 mg/dL (0.0-1.0); Blood Urea Nitrogen 9 mg/dL (9-16); Calcium 9.9 mg/dL (8.4-10.2); Carbon Dioxide 23 mmol/L (22-29); Chloride 109 mmol/L (96-108); Cholesterol 213 mg/dL (<200); Estimated Glomerular Filt Rate > 60; Glucose Fasting 109 mg/dL (60-99); HDL Cholesterol 56 mg/dL (>40); LDL Cholesterol Calculated 130 mg/dL (<100); Potassium 4.3 mmol/L (3.3-5.1); Sodium 144 mmol/L (135-145); Triglycerides 137 mg/dL (<150)
[2022-11-25 09:22] LABS: Free T4 (Free Thyroxine) 0.83 ng/dL (0.71-1.85); Thyroid Stimulating Hormone 3.37 uIU/mL (0.32-4.0); Vitamin D 25-OH Total 36.3 ng/mL (>30)
[2022-11-25 09:41] LABS: Folate 16.3 ng/mL (> or = 4.0); Vitamin B12 547 pg/mL (200-900)
== END 2022-11-25 07:21 | disposition home or self-care (01) ==
LOC: HO.LAB 07:20
PROVIDERS: PCP Internal Medicine; Visit Provider Internal Medicine
DX: I10 Essential (primary) hypertension (principal); E78.00 Pure hypercholesterolemia, unspecified; E55.9 Vitamin D deficiency, unspecified; E03.9 Hypothyroidism, unspecified; E53.8 Deficiency of other specified B group vitamins; R30.0 Dysuria
CPT/HCPCS: 36415; 80053; 80061; 81003; 82306; 82607; 82746; 84439; 84443; 85025

== ENCOUNTER 2022-12-08 14:29 | Outpatient (AMB) | payer OTHER, SELFPAY ==
[2022-12-08 14:40] VITALS: BP 152/96; PULSE 72; O2SAT 98; BMI 26.6
--- NOTE | 2022-12-08 14:40 | MHC.PC.OV ---
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 Accompanied by: Self / Same As Patient Allergies prochlorperazine [From COMPAZINE] Allergy (Severe, Verified 12/08/22 15:23) SEIZURES Medication List - Last Reconciled 12/08/22 by Fran Chua MD albuterol sulfate 90 mcg/actuation (ProAir HFA) 2 puffs inhalation Q6H PRN 30 days amlodipine 5 mg PO DAILY 90 days atorvastatin 10 mg PO BEDTIME 90 days cholecalciferol (vitamin D3) 50 mcg PO DAILY 90 days colesevelam 1,250 mg (2 x 625 mg) PO BID 90 days cromolyn 200 mg (10 mL) PO QID 90 days cyanocobalamin (vitamin B-12) 1,000 mcg PO DAILY 90 days epinephrine (EpiPen 2-Kai) 0.3 mg (0.3 mL) IM Q10M PRN famotidine (Pepcid) 40 mg PO BEDTIME PRN 90 days fluticasone propionate 50 mcg/actuation (Flonase Allergy Relief) 1 spray intranasal Q12H PRN 30 days folic acid 1 mg PO DAILY 90 days loratadine (Claritin) 10 mg PO DAILY [WRIST BRACES (bilateral) As directed] Tobacco use date assessed: 08/04/22 Fall risk assessment: No Falls in past year Last assessed Fall Risk: 12/08/22 HPI 4 month f/u HPI Details Patient comes in today for her follow up visit States that she hurt her right lower back about 3 weeks ago - thinks that she may have strained her lower back but states that she did not really do anything out of the ordinary and just turned around to get something when she felt a sharp pain over her right lower back, which has been bothering her since Feels that her pain is mostly manageable and that it is starting to slowly calm down States that she feels okay otherwise She denies any headaches or dizziness Denies any chest pains, no SOB No nausea/vomiting, no abdominal pain No change in bowel habits noted Needs a few of her Rx refilled Had her follow up labs done a couple of weeks ago - to discuss her results [facility] Medical History GERD (gastroesophageal reflux disease) Folate deficiency Vitamin B12 deficiency Vitamin D deficiency Arthritis Cardiac abnormality Overweight (BMI 25.0-29.9) Anxiety Pure hypercholesterolemia MGUS (monoclonal gammopathy of unknown significance) Fibromyalgia Neuropathy of right lower extremity Psoriasis Surgical History History of colonoscopy History of removal of cyst Status post cryoablation History of bowel resection History of tonsillectomy Family History Father Mother Bladder cancer Arthritis Sister Breast cancer Sister Breast cancer Maternal Aunt Breast cancer Social History Housing: House Alcohol intake: never Patient Tobacco Use Status: Former Tobacco user Tobacco use type: Cigarette e-Cigarette/Vaping Use: Never Used Second Hand Smoke Exposure: No service: No Current occupational status: employed Cognitive needs: No Hearing needs: No Vision needs: Yes (reading glasses) Questionnaire Thrive Questionnaire Date Thrive assessed: 08/04/22 YUNI-7 AMB Questionnaire YUNI-7 Date YUNI - 7 assessed: 08/04/22 Source: Developed by Drs. Van Mcqueen, Valorie Pierson, Kendrick Pfeiffer and colleagues, with an educational veto from [employer]. Review of Systems Const Denies chills, Denies fatigue, Denies fever(s) and Denies headache(s) ENT Denies dysphagia, Denies dizziness, Denies otalgia, Denies headache(s), Denies neck pain, Denies odynophagia and Denies sore throat Card Denies chest pain, Reports rapid heart rate (at times), Reports palpitations (recurrent sensation of palpitations) and Denies dyspnea (but notes some chest tightness when palpitations occur) Resp Denies chest congestion, Denies cough, Denies dyspnea (but notes some chest tightness when palpitations occur) and Denies wheezing GI Denies abdominal pain, Denies constipation, Denies dysphagia, Reports heartburn (occasionally now), Reports diarrhea (often after she eats), Reports loose stools, Denies nausea, Denies odynophagia and Denies vomiting Denies difficulty voiding, Denies nocturia and Denies dysuria Musc Reports arthralgias (in both thumbs) and Denies neck pain Neuro Denies dizziness and Denies headache(s) Psych Reports anxiety Endo Denies fatigue and Reports palpitations (recurrent sensation of palpitations) Aller/Immun Denies wheezing Physical exam (Primary Care) Vital Signs: Last Vital Signs Pulse 72 12/08/22 14:40 BP 152/96 H 12/08/22 14:40 Pulse Ox 98 12/08/22 14:40 Oxygen Delivery Method Room Air 12/08/22 14:40 BMI result Body Mass Index 26.6 Tobacco/Smoking Status: Tobacco use Status Tobacco use date assessed 08/04/22 12/08/22 14:42 Patient Tobacco Use Status Former Tobacco user 12/08/22 14:42 Tobacco use type Cigarette 12/08/22 14:42 e-Cigarette/Vaping Use Never Used 12/08/22 14:42 Thrive Assessment: Date of Thrive Assessment Date Thrive assessed 08/04/22 12/08/22 14:42 Const General: no acute distress and alert HENMT Ears: TM's normal bilaterally and EAC's normal Throat: Yes posterior oropharynx normal and Yes tonsils normal (no TP congestion noted) Neck Neck: Yes no lymphadenopathy and Yes supple Resp Auscultation: clear to auscultation bilaterally, no rales and no wheezes Cardio Rate: regular rate Rhythm: regular rhythm Heart sounds: no murmurs GI Palpation (GI): Soft to palpation and nontender Auscultation: normal bowel sounds Back/Spine/Pelvis Thoracic/Lumbar Spine: paraspinal muscle tenderness on the right in the mid lumbar and in the lower lumbar Extrem Other: (+) tenderness over the MCP and proximal IP joints of both thumbs General: No clubbing, No cyanosis and Yes pedal edema (1+ bilateral) Results Reviewed Results Reviewed: Laboratory Tests 07/22/22 11/25/22 11/25/22 07:59 07:37 07:37 WBC Hgb Hct Plt Count Sodium Potassium Creatinine Estimated GFR Fasting Glucose Calcium AST ALT Triglycerides Cholesterol 192 LDL Cholesterol, Calc 108 HDL Cholesterol Vitamin B12 25-OH Vitamin D Total TSH Free T4 Urine pH 5.0 Ur Specific Anthon 1.025 Urine Protein Negative Urine Glucose (UA) Negative Urine Blood Negative 11/25/22 11/25/22 11/25/22 07:50 07:50 07:50 WBC 6.4 Hgb 13.6 Hct 41.2 Plt Count 275 Sodium 144 Potassium 4.3 Creatinine 0.92 Estimated GFR > 60 Fasting Glucose 109 H Calcium 9.9 AST 15 ALT 37 H Triglycerides 137 Cholesterol 213 H LDL Cholesterol, Calc 130 H HDL Cholesterol 56 Vitamin B12 547 25-OH Vitamin D Total 36.3 TSH 3.37 Free T4 0.83 Urine pH Ur Specific Anthon Urine Protein Urine Glucose (UA) Urine Blood Assessment and Plan Assessment & Plan (1) Palpitations: Code(s): R00.2 - Palpitations Plan: Patient is again reassured that her labs and cardiac work ups done last year to evaluate her recurrent palpitations have all come back normal and that she currently does not appear to have any underlying or active heart disease Holter monitor done in February 2021 showed underlying sinus rhythm with minimal heart rate of 45 per minute and maximal at 115 per minute, average is 65 per minute. No atrial fibrillation or flutter or AV blocks or pauses noted. Rare supraventricular ectopy with minimal burden noted Exercise stress test done was equivocal with moderate shortness of breath, dizziness and chest tightness during the procedure. Nuclear imaging came back completely normal Echocardiogram done in February 2021 showed normal LV systolic function with impaired relaxation filling pattern, normal cardiac valvular Doppler, normal RV systolic pressure and no pericardial effusion Follow-up with cardiology as scheduled (2) Essential hypertension: Code(s): I10 - Essential (primary) hypertension Plan: Reinforced low sodium diet - goal is systolic BP of 120 to 130 mm or less She admits to not taking her medications at present and stopped taking them a couple of weeks ago as she wanted to see if she can get her symptoms controlled with diet modification alone and not have to take any medications Have advised that she should start back on her Amlodipine 5 mg QD MICHAEL as her BP is quite high at this time and uncontrolled BP can lead her to develop heart problems in the future that she currently does not have (3) Pure hypercholesterolemia: Code(s): E78.00 - Pure hypercholesterolemia, unspecified Plan: Results of her labs done a couple of weeks ago reviewed and discussed with patient - lipids have increased significantly from previous and her LDL cholesterol has increased again from 108 mg/dl to back up at 130 mg/dL now Reinforced low cholesterol diet She admits to stopping her medications a couple of weeks ago but is agreeable to go back on her Atorvastatin 10 mg QD Continue Colesevelam 1875 mg BID as well although she is taking this primarily to help with her postprandial diarrhea Will recheck her fasting lipids and labs in 6 months (per request) for follow up (4) Frequent diarrhea: Code(s): R19.7 - Diarrhea, unspecified Plan: (+)?chronic diarrhea, abdominal pain of uncertain etiology and was Bx neg for microscopic colitis; to consider small bowel enteropathy, SIBO, CHO intolerance, gluten intolerance and food allergy as potential causes Patient reports (+) Hx of bowel resection so this may also have something to do with her diarrhea ( dumping syndrome ) depending on the length of her bowel resected Had EGD and colonoscopy done on 07/14/2021 - (+) tubular adenomas and findings suggestive of systemic mastocytosis Was trialed with Rifaximin unsuccessfully for 2 weeks and is now on oral Cromolyn and antihistamines May need MR enterogram if still no significant improvement Follow up with GI as scheduled (5) Psoriasis: Comment: Resent referral to Rheumatology Code(s): L40.9 - Psoriasis, unspecified Plan: Continue Clobetasol propionate 0.05% cream apply to rash BID PRN (6) Environmental and seasonal allergies: Code(s): J30.89 - Other allergic rhinitis Plan: Continue Loratadine 10 mg QD PRN and Fluticasone 50 mcg nasal spray QD PRN Has Albuterol HFA that she uses PRN Patient also has an Epipen that she keeps with her at all times for emergency use in case of anaphylactic reactions (7) GERD (gastroesophageal reflux disease): Code(s): K21.9 - Gastro-esophageal reflux disease without esophagitis Qualifiers: Esophagitis presence: without esophagitis Qualified Code(s): K21.9 - Gastro-esophageal reflux disease without esophagitis Plan: Dietary restrictions reinforced Continue Famotidine 40 mg Q HS PRN (8) Acute lumbar myofascial strain: Code(s): S39.012A - Strain of muscle, fascia and tendon of lower back, initial encounter Qualifiers: Encounter type: sequela Qualified Code(s): S39.012S - Strain of muscle, fascia and tendon of lower back, sequela Plan: Will start her on Baclofen 20 mg TID PRN Advised that she can also apply some warm compress over the painful area PRN for symptomatic relief; alternatively, she can also apply some of the OTC pain patches like Salonpas or BenGay if she wants and they should help with her symptoms as well (9) Vitamin D deficiency: Code(s): E55.9 - Vitamin D deficiency, unspecified Plan: Continue Vitamin D3 2000 units QD (10) Vitamin B12 deficiency: Code(s): E53.8 - Deficiency of other specified B group vitamins Plan: Continue Vitamin B12 tablets 1000 mcg QD (11) Folate deficiency: Code(s): E53.8 - Deficiency of other specified B group vitamins Plan: Continue Folic acid 1 mg QD (12) Anxiety: Code(s): F41.9 - Anxiety disorder, unspecified Plan: Was on Bupropion SR 300 mg Q AM previously but she appears to have self-discontinued this sometime last year; does not wish to take anything at this time for anxiety and feels that she has it under control at present (13) Overweight (BMI 25.0-29.9): Code(s): E66.3 - Overweight Plan: Reinforced diet/exercise as tolerated/lose weight Plan Per request, will have her return in 6 months for her next follow up appt but she promised to go back on all of her previously prescribed medications this time Orders: Orders Complete Blood Count Auto Diff 6 Months E78.00 - Pure hypercholesterolemia, unspecified, I10 - Essential (primary) hypertension, Q24.9 - Congenital malformation of heart, unspecified Lipid Panel 6 Months E78.00 - Pure hypercholesterolemia, unspecified, Q24.9 - Congenital malformation of heart, unspecified Comprehensive [place]. Panel Fast 6 Months E78.00 - Pure hypercholesterolemia, unspecified, Q24.9 - Congenital malformation of heart, unspecified UA CC w/rflx Micro + Cult 6 Months E78.00 - Pure hypercholesterolemia, unspecified, Q24.9 - Congenital malformation of heart, unspecified, R30.0 - Dysuria TSH reflex Free T4 6 Months E78.00 - Pure hypercholesterolemia, unspecified, Q24.9 - Congenital malformation of heart, unspecified Vitamin D 25-OH Total 6 Months E55.9 - Vitamin D deficiency, unspecified, E78.00 - Pure hypercholesterolemia, unspecified, Q24.9 - Congenital malformation of heart, unspecified C Reactive Protein 6 Months E78.00 - Pure hypercholesterolemia, unspecified, Q24.9 - Congenital malformation of heart, unspecified Medications: New baclofen 20 mg PO TID 10 days PRN 30 tabs 2RF muscle spasms/right low back pain Changed From loratadine (Claritin) 10 mg PO DAILY 30 tabs 2RF To loratadine (Claritin) 10 mg PO DAILY 90 days 90 tabs 3RF Refilled famotidine (Pepcid) 40 mg PO BEDTIME 90 days PRN 90 tabs 1RF heartburns colesevelam 1,250 mg (2 x 625 mg) PO BID 90 days 360 tabs 1RF for diarrhea fluticasone propionate 50 mcg/actuation (Flonase Allergy Relief) administer into each nostril 1 spray intranasal Q12H 30 days PRN 16 grams 5RF allergy symptoms loratadine (Claritin) 10 mg PO DAILY 90 days 90 tabs 3RF atorvastatin 10 mg PO BEDTIME 90 days 90 tabs 1RF Coding Level of Care Code Est Pt Level 4 (75057) Diagnoses Palpitations R00.2 Essential hypertension I10 Pure hypercholesterolemia E78.00 Frequent diarrhea R19.7 Psoriasis L40.9 Environmental and seasonal allergies J30.89 Gastroesophageal reflux disease without esophagitis K21.9 Esophagitis presence: without esophagitis Acute myofascial strain of lumbar region, sequela S39.012S Encounter type: sequela Vitamin D deficiency E55.9 Vitamin B12 deficiency E53.8 Folate deficiency E53.8 Anxiety F41.9 Overweight (BMI 25.0-29.9) E66.3
== END 2022-12-08 15:49 | disposition home or self-care (01) ==
PROVIDERS: PCP Internal Medicine; Visit Provider Internal Medicine
DX: R00.2 Palpitations (principal); I10 Essential (primary) hypertension; E78.00 Pure hypercholesterolemia, unspecified; R19.7 Diarrhea, unspecified; L40.9 Psoriasis, unspecified; J30.89 Other allergic rhinitis; K21.9 Gastro-esophageal reflux disease without esophagitis; S39.012S Strain of muscle, fascia and tendon of lower back, sequela; E55.9 Vitamin D deficiency, unspecified; E53.8 Deficiency of other specified B group vitamins; F41.9 Anxiety disorder, unspecified; E66.3 Overweight
CPT/HCPCS: 99214

== ENCOUNTER 2023-06-02 06:59 | Outpatient (REF) | payer OTHER, SELFPAY ==
[2023-06-02 07:21] LABS: MANUAL DIFF FLAG NO
[2023-06-02 07:54] LABS: Basophils Absolute Auto 0.1 X10*3/uL (0.0-0.2); Eosinophils Absolute Auto 0.1 X10*3/uL (0.0-0.4); Hematocrit 39.4 % (37.0-47.0); Hemoglobin 13.2 g/dl (12.0-16.0); Imm Gran Abs Auto 0.02 X10*3/uL (0.00-0.03); Imm Gran Pct Auto 0.3 % (0.0-0.4); Lymphocytes Absolute Auto 2.7 X10*3/uL (1.2-4.9); Lymphocytes Percent Auto 38.2 % (20-40); Mean Corpuscular HGB Conc 33.5 g/dl (31.0-35.0); Mean Corpuscular Hemoglobin 30.4 pg (27.0-33.0); Mean Corpuscular Volume 90.8 fL (80.0-98.0); Mean Platelet Volume 9.2 fL (9.4-12.3); Monocytes Absolute Auto 0.5 X10*3/uL (0.1-1.2); Monocytes Percent Auto 6.6 % (2-11); Neutrophils Absolute Auto 3.6 x10*3/uL (2.0-8.3); Neutrophils Percent Auto 51.9 % (45-73); Platelet Count 327 X10*3/uL (160-400); Red Blood Count 4.34 X10*6/uL (4.20-5.50); Red Cell Distribution Width 12.5 % (11.0-16.0)
[2023-06-02 08:43] LABS: Alanine Aminotransferase 30 U/L (0-31); Albumin Level 3.9 g/dL (3.5-5.0); Alkaline Phosphatase 86 U/L (39-117); Anion Gap 11 (12-20); Aspartate Amino Transferase 13 U/L (5-31); Bilirubin Total 0.4 mg/dL (0.0-1.0); Blood Urea Nitrogen 13 mg/dL (9-16); C Reactive Protein 0.26 mg/dL (< or = 0.50); Calcium 9.3 mg/dL (8.4-10.2); Carbon Dioxide 23 mmol/L (22-29); Chloride 109 mmol/L (96-108); Cholesterol 169 mg/dL (<200); Estimated Glomerular Filt Rate > 60; Glucose Fasting 112 mg/dL (60-99); HDL Cholesterol 61 mg/dL (>40); LDL Cholesterol Calculated 83 mg/dL (<100); Potassium 4.1 mmol/L (3.3-5.1); Sodium 139 mmol/L (135-145); Total Protein 6.9 g/dL (6.5-8.0); Triglycerides 128 mg/dL (<150)
[2023-06-02 08:59] LABS: Vitamin D 25-OH Total 18.1 ng/mL (>30)
[2023-06-02 10:13] LABS: Appearance Urine Clear; Color Urine Yellow; Glucose Urine UA Negative (Negative); Leukocyte Esterase Urine Negative (Negative); Nitrite Urine Negative (Negative); PH 5.5 (5.0-9.0); Specific Gravity - Urine >= 1.030 (1.005-1.025); Urine Blood Negative (Negative); Urine Ketones Trace mg/dL (Negative); Urine Protein Negative (Neg-Trace)
== END 2023-06-02 07:00 | disposition home or self-care (01) ==
LOC: HO.LAB 06:59
PROVIDERS: PCP Internal Medicine; Visit Provider Internal Medicine
DX: I10 Essential (primary) hypertension (principal); Q24.9 Congenital malformation of heart, unspecified; R30.0 Dysuria; E55.9 Vitamin D deficiency, unspecified; E78.00 Pure hypercholesterolemia, unspecified
CPT/HCPCS: 36415; 80053; 80061; 81003; 82306; 84443; 85025; 86140

== ENCOUNTER 2023-06-15 14:08 | Outpatient (AMB) | payer OTHER, SELFPAY ==
[2023-06-15 14:11] VITALS: BP 138/78; PULSE 61; O2SAT 98; BMI 29.5
--- NOTE | 2023-06-15 14:11 | A.OFFPC_ITS ---
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 Required: No Allergies prochlorperazine [From COMPAZINE] Allergy (Severe, Verified 06/15/23 14:45) SEIZURES Medication List - Last Reconciled 06/15/23 by Fran Chua MD albuterol sulfate 90 mcg/actuation (ProAir HFA) 2 puffs inhalation Q6H PRN 30 days amlodipine 5 mg PO DAILY 90 days atorvastatin 10 mg PO BEDTIME 90 days baclofen 20 mg PO TID PRN 10 days cholecalciferol (vitamin D3) 50 mcg PO DAILY 90 days colesevelam 1,250 mg (2 x 625 mg) PO BID 90 days cromolyn 200 mg (10 mL) PO QID 90 days cyanocobalamin (vitamin B-12) 1,000 mcg PO DAILY 90 days epinephrine (EpiPen 2-Kai) 0.3 mg (0.3 mL) IM Q10M PRN famotidine (Pepcid) 40 mg PO BEDTIME PRN 90 days fluticasone propionate 50 mcg/actuation (Flonase Allergy Relief) 1 spray intranasal Q12H PRN 30 days folic acid 1 mg PO DAILY 90 days loratadine (Claritin) 10 mg PO DAILY 90 days [WRIST BRACES (bilateral) As directed] Tobacco use date assessed: 06/15/23 Fall risk assessment: No Falls in past year Last assessed Fall Risk: 06/15/23 Dental Screening Dental Screen Date: 06/15/23 Did you have a dental visit in the last 12 months?: No Did you have a dental problem in the last 6 months where you did not have access to dental care?: No HPI hyperlipidemia, HTN HPI Details Patient comes in today for her follow up visit States that she currently feels okay and that her previous low back pain has mostly subsided and only bothers her occasionally She has noticed recently that she would often have a sensation of extreme fatigue/tiredness often immediately after she eats She has described it as a sensation wherein her head would feel very heavy and she would have a hard time moving for a while (period of unresponsiveness?), and that these would gradually pass a few minutes later She does not think she has any LOC but her friend recently advised her that she has been trying to reach her for a while and called a few times but she did not answer immediately States that she did not recall hearing her friend call her and is now suspecting that she may be passing out briefly during these episodes as she has noticed some increased fatigue on her part after these episodes that would linger on for a while She denies any headaches or dizziness Denies any chest pains, no SOB No nausea/vomiting, no abdominal pain No change in bowel habits noted Had her follow up labs done a couple of weeks ago - to discuss her results [facility] Medical History GERD (gastroesophageal reflux disease) Folate deficiency Vitamin B12 deficiency Vitamin D deficiency Arthritis Cardiac abnormality Overweight (BMI 25.0-29.9) Anxiety Pure hypercholesterolemia MGUS (monoclonal gammopathy of unknown significance) Fibromyalgia Neuropathy of right lower extremity Psoriasis Surgical History History of colonoscopy History of removal of cyst Status post cryoablation History of bowel resection History of tonsillectomy Family History Father Mother Bladder cancer Arthritis Sister Breast cancer Sister Breast cancer Maternal Aunt Breast cancer Social History Housing: House Alcohol intake: never Patient Tobacco Use Status: Former Tobacco user Tobacco use type: Cigarette e-Cigarette/Vaping Use: Never Used Second Hand Smoke Exposure: No service: No Current occupational status: employed Cognitive needs: No Hearing needs: No Vision needs: Yes (reading glasses) Questionnaire PHQ-9 Over the last 2 weeks, how often have you been bothered by any of the following problems? 1. Little interest or pleasure in doing things: not at all 2. Feeling down, depressed, or hopeless: not at all 3. Trouble falling or staying asleep, or sleeping too much: not at all 4. Feeling tired or having little energy: not at all 5. Poor appetite or overeating: not at all 6. Feeling bad about yourself - or that you are a failure or have let yourself or your family down: not at all 7. Trouble concentrating on things, such as reading the newspaper or watching television: not at all 8. Moving or speaking so slowly that other people could have noticed. Or the opposite - being so fidgety or restless that you have been moving around a lot more than usual: not at all 9. Thoughts that you would be better off or of hurting yourself in some way: not at all Total score: 0 Depression Screening Interpretation: Negative Depression Screening Done: Yes 63425 - PHQ-9 Billing: Yes Source: Developed by Drs. Van Mcqueen, Valorie Pierson, Kendrick Pfeiffer and colleagues, with an educational veto from [employer]. Thrive Questionnaire Date Thrive assessed: 06/15/23 I am a: Patient What is your living situation today?: I have a steady place to live Within the past 12 months, did the food you bought not last and you didn't have the money to get more?: Never true Within the past 12 months, did you worry whether your food would run out before you got money to buy more?: Never true Do you have trouble paying for medicines?: No Do you have trouble getting transportation to medical appointments?: No Do you have trouble paying your heating and electricity bill?: No Do you have trouble taking care of your child, family member or friend?: No Do you have trouble with day-to-day activities such as bathing, preparing meals, shopping, managing finances, etc.?: No Are you currently unemployed and looking for a job?: No Are you interested in more education?: No Please select the resources that you would like help with: None Currently or been in a relationship where the following occur: no concerns reported THRIVE Score: 0 AUDIT C Alcohol Use Questionnaire (AUDIT-C) 1. How often do you have a drink containing alcohol?: Never 3. How often do you have six or more drinks on one occasion?: Never Total Score: 0 Score Reviewed/Action Taken: Yes YUNI-7 AMB Questionnaire YUNI-7 Date YUNI - 7 assessed: 06/15/23 Feeling nervous, anxious, or on edge: 0 = Not at all Not being able to stop or control worryin = Not at all Worrying too much about different things: 0 = Not at all Trouble relaxin = Not at all Being so restless that it is hard to sit still: 0 = Not at all Becoming easily annoyed or irritable: 0 = Not at all Feeling afraid as if something awful might happen: 0 = Not at all Total YUNI-7 score (0-4 normal; 5-9 mild; 10-14 moderate; 15-21 severe): 0 Source: Developed by Drs. Van Mcqueen, Valorie Pierson, Kendrick Pfeiffer and colleagues, with an educational veto from [employer]. YUNI-7 Assessment Billing YUNI-7 Assessment Tool: YUNI-7 Assessment 83030 Review of Systems Const Denies chills, Reports fatigue (often immediately after eating - see HPI for details), Denies fever(s) and Denies headache(s) ENT Denies dysphagia, Denies dizziness, Denies otalgia, Denies headache(s), Denies neck pain, Denies odynophagia and Denies sore throat Card Denies chest pain, Reports rapid heart rate (at times), Reports palpitations (occasional sensation of palpitations) and Denies dyspnea (but notes some chest tightness when palpitations occur) Resp Denies chest congestion, Denies cough, Denies dyspnea (but notes some chest tightness when palpitations occur) and Denies wheezing GI Denies abdominal pain, Denies constipation, Denies dysphagia, Reports heartburn (occasionally now), Reports diarrhea (often after she eats), Reports loose stools, Denies nausea, Denies odynophagia and Denies vomiting Denies difficulty voiding, Denies nocturia and Denies dysuria Musc Denies back pain, Reports arthralgias (in both thumbs) and Denies neck pain Skin/Breast Denies rash Neuro Reports as per HPI, Denies dizziness and Denies headache(s) Psych Reports anxiety Endo Reports fatigue (often immediately after eating - see HPI for details) and Reports palpitations (occasional sensation of palpitations) Aller/Immun Denies wheezing Physical exam (Primary Care) Vital Signs: Last Vital Signs Pulse 61 06/15/23 14:11 BP 138/78 06/15/23 14:11 Pulse Ox 98 06/15/23 14:11 Oxygen Delivery Method Room Air 06/15/23 14:11 BMI result Body Mass Index 29.5 Tobacco/Smoking Status: Tobacco use Status Tobacco use date assessed 06/15/23 06/15/23 14:13 Patient Tobacco Use Status Former Tobacco user 06/15/23 14:13 Tobacco use type Cigarette 06/15/23 14:13 e-Cigarette/Vaping Use Never Used 06/15/23 14:13 PHQ-9: PHQ-9 Score PHQ-9: Total score 0 06/15/23 14:46 Depression Screening Interpretation: Negative Thrive Assessment: Date of Thrive Assessment Date Thrive assessed 06/15/23 06/15/23 14:13 Currently or been in a relationship where the following occur: no concerns reported Const General: no acute distress and alert Orientation/consciousness: patient oriented x3 HENMT Ears: TM's normal bilaterally and EAC's normal Throat: Yes posterior oropharynx normal and Yes tonsils normal (no TP congestion noted) Neck Neck: Yes no lymphadenopathy and Yes supple Thyroid: Thyroid normal Resp Auscultation: clear to auscultation bilaterally, no rales and no wheezes Cardio Rate: regular rate Rhythm: regular rhythm Heart sounds: no murmurs GI Palpation (GI): Soft to palpation and nontender Auscultation: normal bowel sounds General: Yes no CVA tenderness Back/Spine/Pelvis Back: no CVA tenderness Thoracic/Lumbar Spine: No lumbar spinal tenderness Skin Rashes: no rashes Neuro General: patient oriented x3 Cognition (Neuro): normal cognition Extrem Other: (+) tenderness over the MCP and proximal IP joints of both thumbs General: No clubbing, No cyanosis and Yes pedal edema (1+ bilateral) Results Reviewed Results Reviewed: Laboratory Tests 06/02/23 06/02/23 07:04 07:20 WBC 7.0 Hgb 13.2 Hct 39.4 Plt Count 327 Sodium 139 Potassium 4.1 Creatinine 0.86 Estimated GFR > 60 Fasting Glucose 112 H Calcium 9.3 D AST 13 ALT 30 Triglycerides 128 Cholesterol 169 LDL Cholesterol, Calc 83 HDL Cholesterol 61 25-OH Vitamin D Total 18.1 L TSH 3.30 Urine pH 5.5 Ur Specific [place]man >= 1.030 H Urine Protein Negative Urine Glucose (UA) Negative Urine Blood Negative Urine Nitrite Negative Ur Leukocyte Esterase Negative Assessment and Plan Assessment & Plan (1) Syncopal episodes: Code(s): R55 - Syncope and collapse Qualifiers: Syncope type: unspecified Qualified Code(s): R55 - Syncope and collapse Plan: Discussed that based on her description of her symptoms, there is a likelihood that her brief periods of heaviness after eating may actually be brief syncopal episodes OR they could be some form or variation of epilepsy or pseudoepilepsy Will refer her to neurology for further evaluation and management (2) Palpitations: Code(s): R00.2 - Palpitations Plan: Patient is again reassured that her labs and cardiac work ups done last year to evaluate her recurrent palpitations have all come back normal and that she currently does not appear to have any underlying or active heart disease Holter monitor done in February 2021 showed underlying sinus rhythm with minimal heart rate of 45 per minute and maximal at 115 per minute, average is 65 per minute. No atrial fibrillation or flutter or AV blocks or pauses noted. Rare supraventricular ectopy with minimal burden noted Exercise stress test done was equivocal with moderate shortness of breath, dizziness and chest tightness during the procedure. Nuclear imaging came back completely normal Echocardiogram done in February 2021 showed normal LV systolic function with impaired relaxation filling pattern, normal cardiac valvular Doppler, normal RV systolic pressure and no pericardial effusion Follow-up with cardiology as scheduled (3) Essential hypertension: Code(s): I10 - Essential (primary) hypertension Plan: Reinforced low sodium diet - goal is systolic BP of 120 to 130 mm or less Continue Amlodipine 5 mg QD (4) Pure hypercholesterolemia: Code(s): E78.00 - Pure hypercholesterolemia, unspecified Plan: Results of her labs done a couple of weeks ago reviewed and discussed with patient - she is advised that her cholesterol levels have improved significantly from previous Reinforced low cholesterol diet Continue Atorvastatin 10 mg QD Continue Colesevelam 1875 mg BID as well although she is taking this primarily to help with her postprandial diarrhea Will recheck her fasting lipids and labs in 6 months for follow up (5) Frequent diarrhea: Code(s): R19.7 - Diarrhea, unspecified Plan: (+)?chronic diarrhea, abdominal pain of uncertain etiology and was Bx neg for microscopic colitis; to consider small bowel enteropathy, SIBO, CHO intolerance, gluten intolerance and food allergy as potential causes Patient reports (+) Hx of bowel resection so this may also have something to do with her diarrhea ( dumping syndrome ) depending on the length of her bowel resected Had EGD and colonoscopy done on 07/14/2021 - (+) tubular adenomas and findings suggestive of systemic mastocytosis Was trialed with Rifaximin unsuccessfully for 2 weeks and is now on oral Cromolyn and antihistamines May need MR enterogram if still no significant improvement Follow up with GI as scheduled for continuing management of this issue (6) Psoriasis: Comment: Resent referral to Rheumatology Code(s): L40.9 - Psoriasis, unspecified Plan: Continue Clobetasol propionate 0.05% cream apply to rash BID PRN (7) Environmental and seasonal allergies: Code(s): J30.89 - Other allergic rhinitis Plan: Continue Loratadine 10 mg QD PRN and Fluticasone 50 mcg nasal spray QD PRN Has Albuterol HFA that she uses PRN Patient also has an Epipen that she keeps with her at all times for emergency use in case of anaphylactic reactions (8) GERD (gastroesophageal reflux disease): Code(s): K21.9 - Gastro-esophageal reflux disease without esophagitis Qualifiers: Esophagitis presence: without esophagitis Qualified Code(s): K21.9 - Gastro-esophageal reflux disease without esophagitis Plan: Dietary restrictions reinforced Continue Famotidine 40 mg Q HS PRN (9) Vitamin D deficiency: Code(s): E55.9 - Vitamin D deficiency, unspecified Plan: Continue Vitamin D3 2000 units QD (10) Vitamin B12 deficiency: Code(s): E53.8 - Deficiency of other specified B group vitamins Plan: Continue Vitamin B12 tablets 1000 mcg QD (11) Folate deficiency: Code(s): E53.8 - Deficiency of other specified B group vitamins Plan: Continue Folic acid 1 mg QD (12) Anxiety: Code(s): F41.9 - Anxiety disorder, unspecified Plan: Was on Bupropion SR 300 mg Q AM previously but she appears to have self- discontinued this sometime last year; does not wish to take anything at this time for anxiety and feels that she has it under control at present (13) Overweight (BMI 25.0-29.9): Code(s): E66.3 - Overweight Plan: Reinforced diet/exercise as tolerated/lose weight Plan Follow up in 6 months Orders: Orders Lipid Panel 6 Months E78.00 - Pure hypercholesterolemia, unspecified Vitamin B12 and Folate 6 Months E53.8 - Deficiency of other specified B group vitamins UA CC w/rflx Micro + Cult 6 Months R30.0 - Dysuria Comprehensive [place]. Panel Fast 6 Months E78.00 - Pure hypercholesterolemia, unspecified Hemoglobin A1c 6 Months R73.01 - Impaired fasting glucose Vitamin D 25-OH Total 6 Months E55.9 - Vitamin D deficiency, unspecified Complete Blood Count Auto Diff 6 Months D64.9 - Anemia, unspecified Referrals Neurology Referral R55 - Syncope and collapse Coding Level of Care Code Est Pt Level 4 (24111) Diagnoses Syncope, unspecified syncope type R55 Syncope type: unspecified Palpitations R00.2 Essential hypertension I10 Pure hypercholesterolemia E78.00 Frequent diarrhea R19.7 Psoriasis L40.9 Environmental and seasonal allergies J30.89 Gastroesophageal reflux disease without esophagitis K21.9 Esophagitis presence: without esophagitis Vitamin D deficiency E55.9 Vitamin B12 deficiency E53.8 Folate deficiency E53.8 Anxiety F41.9 Overweight (BMI 25.0-29.9) E66.3 Additional Codes YUNI-7 Assessment Billing - YUNI-7 Assessment Tool: YUNI-7 Assessment [id number] ([id number])
== END 2023-06-15 14:56 | disposition home or self-care (01) ==
PROVIDERS: PCP Internal Medicine; Visit Provider Internal Medicine
DX: E78.00 Pure hypercholesterolemia, unspecified (principal); I10 Essential (primary) hypertension; R55 Syncope and collapse; R00.2 Palpitations; R19.7 Diarrhea, unspecified; L40.9 Psoriasis, unspecified; J30.89 Other allergic rhinitis; K21.9 Gastro-esophageal reflux disease without esophagitis; E55.9 Vitamin D deficiency, unspecified; E53.8 Deficiency of other specified B group vitamins; F41.9 Anxiety disorder, unspecified; E66.3 Overweight
CPT/HCPCS: 99214

== ENCOUNTER 2023-09-03 12:24 | Outpatient (AMB) | payer MEDICARE, SELFPAY ==
[2023-09-03 12:27] VITALS: BP 144/69; PULSE 72; BMI 28.9
--- NOTE | 2023-09-03 12:27 | A.OFFVIS_ITS ---
Vital Signs 09/03/23 12:27 Height 5 ft 1 in Weight 153 lb 0.013 oz BMI 28.9 BP 144/69 H Blood Pressure Location Lt brachial Position Sitting Pulse 72 Intake Visit Reasons: chronic diarrhea / Yesy current patient Intake Note: Franca presents in office today with c/o chronic diarrhea. CC: Patient reports chronic diarrhea on and off for 25 years. She states for a period of time it got better but about 8 years ago it got really bad. She states that she is not able to eat before leaving the house in order to avoid an accident . She also c/o abdominal pain, gas pain, and occasional nausea. Risk Compliance Manager Required: No Accompanied by: Self / Same As Patient Allergies prochlorperazine [From COMPAZINE] Allergy (Severe, Verified 09/03/23 12:37) SEIZURES HPI HPI chronic diarrhea / Yesy current patient: Details: 68-year-old female being seen for f/u RECAP: Had long standing issues with diarrhea going on for 20 yrs at least she did have some good response with colesevelam which had reduced the severity but not taken it away she had bloating and ruq pain and discomfort TESTS celiac serology nml TSH nml CBC nml, eos nml EGD/colonoscopy: 2021 tubular adenomas x 2, chronic duodenitis, neg TI and colon bx INTERIM: she feels her diarrhea has been getting worse she still has been taking colesevelam with variable effect imodium doesn't work for her either EXAM: GENERAL: The patient is well developed and nontoxic. VITAL SIGNS:see workflow HEENT: Nonicteric sclerae, PERRLA, EOMI. Oropharynx clear. Moist mucous membranes. Conjunctivae appear well perfused. No thyroid mass. CHEST: Chest wall is nontender. HEART: Regular rate and rhythm without murmurs. LUNGS: Clear to auscultation bilaterally. ABDOMEN: Soft, positive bowel sounds, nontender, no organomegaly.no flank tenderness SKIN: No rash, no excessive bruising, petechiae, or purpura. NEUROLOGIC: Cranial nerves II-XII intact without motor/sensory deficit. Psych: normal affect A/P: 1/ chronic diarrhea, abdominal pain, uncertain etiology bx neg for microscopic colitis, ddx: small bowel enteropathy, SIBO, CHO intolerance, gluten intolerance, food allergy PLAN: 1/ trial of rifaximin for 2 weeks 2/ if neg then trial then consider cholestyramine trial or lomotil 3/ check hormone levels--glucagon, gastrin, somatostatin, VIP levels, calcitonin 4/ CTe to check for IBD 5/ might need repeat colo PFSH Medical History GERD (gastroesophageal reflux disease) Folate deficiency Vitamin B12 deficiency Vitamin D deficiency Arthritis Cardiac abnormality Overweight (BMI 25.0-29.9) Anxiety Pure hypercholesterolemia MGUS (monoclonal gammopathy of unknown significance) Fibromyalgia Neuropathy of right lower extremity Psoriasis Surgical History History of colonoscopy History of removal of cyst Status post cryoablation History of bowel resection History of tonsillectomy Family History Father Mother Bladder cancer Arthritis Sister Breast cancer Sister Breast cancer Maternal Aunt Breast cancer Social History Housing: House Alcohol intake: never Patient Tobacco Use Status: Former Tobacco user Tobacco use type: Cigarette e-Cigarette/Vaping Use: Never Used Second Hand Smoke Exposure: No service: No Current occupational status: employed Cognitive needs: No Hearing needs: No Vision needs: Yes (reading glasses) Physical Exam Vital Signs: Last Vital Signs Pulse 72 09/03/23 12:27 BP 144/69 H 09/03/23 12:27 BMI result Body Mass Index 28.9 Assessment & Plan Assessment & Plan (1) Psoriasis: Comment: Resent referral to Rheumatology Code(s): L40.9 - Psoriasis, unspecified Category: Medical Plan: see above (2) Frequent diarrhea: Code(s): R19.7 - Diarrhea, unspecified Category: Medical Plan: see above (3) Chronic diarrhea: Code(s): K52.9 - Noninfective gastroenteritis and colitis, unspecified Category: Medical Plan: see above (4) Systemic mastocytosis: Code(s): D47.02 - Systemic mastocytosis Category: Medical Plan: see above (5) Diarrhea: Code(s): R19.7 - Diarrhea, unspecified Category: Medical Plan: see above Orders: Orders C Reactive Protein Today D47.02 - Systemic mastocytosis, K52.9 - Noninfective gastroenteritis and colitis, unspecified, L40.9 - Psoriasis, unspecified, R19.7 - Diarrhea, unspecified Immunoglobulins,IgG IgA IgM Today D47.02 - Systemic mastocytosis, K52.9 - Noninfective gastroenteritis and colitis, unspecified, L40.9 - Psoriasis, unspecified, R19.7 - Diarrhea, unspecified LUBA Reflex Titer and Pattern Today D47.02 - Systemic mastocytosis, K52.9 - Noninfective gastroenteritis and colitis, unspecified, L40.9 - Psoriasis, unspecified, R19.7 - Diarrhea, unspecified, R79.82 - Elevated C-reactive protein (CRP) Rast Allergen Today D47.02 - Systemic mastocytosis, K52.9 - Noninfective gastroenteritis and colitis, unspecified, L40.9 - Psoriasis, unspecified, R19.7 - Diarrhea, unspecified, Z91.018 - Allergy to other foods Immunoglobulin E Today D47.02 - Systemic mastocytosis, K52.9 - Noninfective gastroenteritis and colitis, unspecified, L40.9 - Psoriasis, unspecified, R19.7 - Diarrhea, unspecified Immunoglobulin G Subclasses Today D47.02 - Systemic mastocytosis, K52.9 - Noninfective gastroenteritis and colitis, unspecified, L40.9 - Psoriasis, unspecified, R19.7 - Diarrhea, unspecified Metanephrines, Plasma Today D47.02 - Systemic mastocytosis, K52.9 - Noninfective gastroenteritis and colitis, unspecified, L40.9 - Psoriasis, unspecified, R19.7 - Diarrhea, unspecified N-Methylhistamine 24Hr Today D47.02 - Systemic mastocytosis, K52.9 - Noninfective gastroenteritis and colitis, unspecified, L40.9 - Psoriasis, unspecified, R19.7 - Diarrhea, unspecified Metanephrines, 24hr Urine Today D47.02 - Systemic mastocytosis, K52.9 - Noninfective gastroenteritis and colitis, unspecified, L40.9 - Psoriasis, unspecified, R19.7 - Diarrhea, unspecified Creatine Kinase Total Today D47.02 - Systemic mastocytosis, K52.9 - Noninfective gastroenteritis and colitis, unspecified, L40.9 - Psoriasis, unspecified, R19.7 - Diarrhea, unspecified Ferritin Today D47.02 - Systemic mastocytosis, K52.9 - Noninfective gastroenteritis and colitis, unspecified, L40.9 - Psoriasis, unspecified, R19.7 - Diarrhea, unspecified Tryptase Today D47.02 - Systemic mastocytosis, K52.9 - Noninfective gastroenteritis and colitis, unspecified, L40.9 - Psoriasis, unspecified, R19.7 - Diarrhea, unspecified ANCA Vasculitides Today D47.02 - Systemic mastocytosis, K52.9 - Noninfective gastroenteritis and colitis, unspecified, L40.9 - Psoriasis, unspecified, R19.7 - Diarrhea, unspecified Angiotensin Converting Enzyme Today D47.02 - Systemic mastocytosis, K52.9 - Noninfective gastroenteritis and colitis, unspecified, L40.9 - Psoriasis, unspecified, R19.7 - Diarrhea, unspecified Vitamin B1 Today D47. - Systemic mastocytosis, K52.9 - Noninfective gastro enteritis and colitis, unspecified, L40.9 - Psoriasis, unspecified, R19.7 - Diarrhea, unspecified Vitamin B3 (Niacin) Today D47. - Systemic mastocytosis, K52.9 - Noninfective gastroenteritis and colitis, unspecified, L40.9 - Psoriasis, unspecified, R19.7 - Diarrhea, unspecified Vitamin B5 (Pantothenic Acid) Today D47. - Systemic mastocytosis, K52.9 - Noninfective gastroenteritis and colitis, unspecified, L40.9 - Psoriasis, unspecified, R19.7 - Diarrhea, unspecified Vitamin C Today D47.02 - Systemic mastocytosis, K52.9 - Noninfective gastroenteritis and colitis, unspecified, L40.9 - Psoriasis, unspecified, R19.7 - Diarrhea, unspecified Vitamin E Today D47.02 - Systemic mastocytosis, K52.9 - Noninfective gastroenteritis and colitis, unspecified, L40.9 - Psoriasis, unspecified, R19.7 - Diarrhea, unspecified Calcitonin Today R19.7 - Diarrhea, unspecified Calcium, Ionized Today E83.52 - Hypercalcemia, R19.7 - Diarrhea, unspecified CT enterography Today D47.02 - Systemic mastocytosis, K52.9 - Noninfective gastroenteritis and colitis, unspecified, L40.9 - Psoriasis, unspecified, R10.33 - Periumbilical pain, R19.7 - Diarrhea, unspecified Complete Blood Count Auto Diff Today D47.02 - Systemic mastocytosis, K52.9 - Noninfective gastroenteritis and colitis, unspecified, L40.9 - Psoriasis, unspecified, R19.7 - Diarrhea, unspecified Comprehensive Met. Panel Today D47.02 - Systemic mastocytosis, K52.9 - Noninfective gastroenteritis and colitis, unspecified, K75.81 - Nonalcoholic steatohepatitis (HARDY), L40.9 - Psoriasis, unspecified, R19.7 - Diarrhea, unspecified GI Panel Today D47.02 - Systemic mastocytosis, K52.9 - Noninfective gastroenteritis and colitis, unspecified, L40.9 - Psoriasis, unspecified, R19.7 - Diarrhea, unspecified CDiff Gene PCR Today D47.02 - Systemic mastocytosis, K52.9 - Noninfective gastroenteritis and colitis, unspecified, L40.9 - Psoriasis, unspecified, R19.7 - Diarrhea, unspecified Vasoactive Intestinal Polypept Today D47.02 - Systemic mastocytosis, K52.9 - Noninfective gastroenteritis and colitis, unspecified, L40.9 - Psoriasis, unspecified, R19.7 - Diarrhea, unspecified Glucagon Today D47.02 - Systemic mastocytosis, K52.9 - Noninfective gastroenteritis and colitis, unspecified, L40.9 - Psoriasis, unspecified, R19.7 - Diarrhea, unspecified Histamine Plasma Today D47.02 - Systemic mastocytosis, K52.9 - Noninfective gastroenteritis and colitis, unspecified, L40.9 - Psoriasis, unspecified, R19.7 - Diarrhea, unspecified Hepatitis A,B,C Profile Today D47.02 - Systemic mastocytosis, K52.9 - Noninfective gastroenteritis and colitis, unspecified, L40.9 - Psoriasis, unspecified, R19.7 - Diarrhea, unspecified Somatostatin Today D47.02 - Systemic mastocytosis, K52.9 - Noninfective gastroenteritis and colitis, unspecified, L40.9 - Psoriasis, unspecified, R19.7 - Diarrhea, unspecified Erythrocyte Sedimentation Rate Today D47.02 - Systemic mastocytosis, K52.9 - Noninfective gastroenteritis and colitis, unspecified, L40.9 - Psoriasis, unspecified, R19.7 - Diarrhea, unspecified Aldolase Today D47.02 - Systemic mastocytosis, K52.9 - Noninfective gastroenteritis and colitis, unspecified, L40.9 - Psoriasis, unspecified, R19.7 - Diarrhea, unspecified Vitamin A Today D47.02 - Systemic mastocytosis, K52.9 - Noninfective gastroenteritis and colitis, unspecified, L40.9 - Psoriasis, unspecified, R19.7 - Diarrhea, unspecified Vitamin B12 and Folate Today D47.02 - Systemic mastocytosis, K52.9 - Noninfective gastroenteritis and colitis, unspecified, L40.9 - Psoriasis, unspecified, R19.7 - Diarrhea, unspecified Vitamin B6 Today D47.02 - Systemic mastocytosis, K52.9 - Noninfective gastroenteritis and colitis, unspecified, L40.9 - Psoriasis, unspecified, R19.7 - Diarrhea, unspecified Vitamin D 25-OH Total Today D47.02 - Systemic mastocytosis, K52.9 - Noninfective gastroenteritis and colitis, unspecified, L40.9 - Psoriasis, unspecified, R19.7 - Diarrhea, unspecified Vitamin K1 Today D47.02 - Systemic mastocytosis, K52.9 - Noninfective gastroenteritis and colitis, unspecified, L40.9 - Psoriasis, unspecified, R19.7 - Diarrhea, unspecified Zinc Today D47.02 - Systemic mastocytosis, K52.9 - Noninfective gastroenteritis and colitis, unspecified, L40.9 - Psoriasis, unspecified, R19.7 - Diarrhea, unspecified 5-HIAA 24 Hour Urine Today D47.02 - Systemic mastocytosis, K52.9 - Noninfective gastroenteritis and colitis, unspecified, L40.9 - Psoriasis, unspecified, R19.7 - Diarrhea, unspecified Medications: New rifaximin 550 mg PO TID 2 weeks 42 tabs 0RF Discontinued folic acid Discontinued Reason: Patient Completed Course 1 mg PO DAILY 90 days 90 tabs 3RF cyanocobalamin (vitamin B-12) Discontinued Reason: Patient Completed Course 1,000 mcg PO DAILY 90 days 90 tabs 3RF Coding Level of Care Code Est Pt Level 4 (16138) Diagnoses Psoriasis L40.9 Frequent diarrhea R19.7 Chronic diarrhea K52.9 Systemic mastocytosis D47.02 Diarrhea R19.7
== END 2023-09-03 13:07 | disposition home or self-care (01) ==
PROVIDERS: PCP Internal Medicine; Visit Provider Internal Medicine Gastroenterology
DX: K52.9 Noninfective gastroenteritis and colitis, unspecified (principal); L40.9 Psoriasis, unspecified; D47.02 Systemic mastocytosis
CPT/HCPCS: 99214

== ENCOUNTER → 2023-09-03 12:24 | Outpatient (BNVA) | payer MEDICARE, SELFPAY | PROVIDERS: PCP Internal Medicine; Visit Provider Internal Medicine Gastroenterology | DX: L40.9 Psoriasis, unspecified (principal); K52.9 Noninfective gastroenteritis and colitis, unspecified; D47.02 Systemic mastocytosis | CPT/HCPCS: 99212 ==

== ENCOUNTER 2023-09-05 09:19 | Outpatient (REF) | payer MEDICARE, SELFPAY ==
[2023-09-05 09:58] LABS: MANUAL DIFF FLAG NO
[2023-09-05 10:17] LABS: Basophils Absolute Auto 0.1 X10*3/uL (0.0-0.2); Basophils Percent Auto 0.9 % (0-2); Eosinophils Absolute Auto 0.2 X10*3/uL (0.0-0.4); Hematocrit 40.7 % (37.0-47.0); Hemoglobin 13.7 g/dl (12.0-16.0); Imm Gran Abs Auto 0.02 X10*3/uL (0.00-0.03); Imm Gran Pct Auto 0.3 % (0.0-0.4); Lymphocytes Absolute Auto 2.6 X10*3/uL (1.2-4.9); Mean Corpuscular HGB Conc 33.7 g/dl (31.0-35.0); Mean Corpuscular Hemoglobin 30.2 pg (27.0-33.0); Mean Corpuscular Volume 89.8 fL (80.0-98.0); Mean Platelet Volume 9.6 fL (9.4-12.3); Monocytes Absolute Auto 0.4 X10*3/uL (0.1-1.2); Neutrophils Absolute Auto 3.4 x10*3/uL (2.0-8.3); Neutrophils Percent Auto 50.8 % (45-73); Platelet Count 307 X10*3/uL (160-400); Red Blood Count 4.53 X10*6/uL (4.20-5.50); White Blood Count 6.6 X10*3/uL (4.8-10.8)
[2023-09-05 11:07] LABS: Alanine Aminotransferase 24 U/L (0-31); Albumin Level 4.3 g/dL (3.5-5.0); Alkaline Phosphatase 95 U/L (39-117); Anion Gap 11 (12-20); Aspartate Amino Transferase 19 U/L (5-31); Bilirubin Total 0.3 mg/dL (0.0-1.0); Blood Urea Nitrogen 15 mg/dL (9-16); C Reactive Protein 0.38 mg/dL (< or = 0.50); Calcium 9.7 mg/dL (8.4-10.2); Carbon Dioxide 24 mmol/L (22-29); Chloride 111 mmol/L (96-108); Erythrocyte Sedimentation Rate 7 MM/HR (0-20); Estimated Glomerular Filt Rate > 60; Ferritin 27 ng/mL (10-250); Glucose Random 111 mg/dL (60-115); Sodium 142 mmol/L (135-145); TSH reflex Free T4 3.28 uIU/mL (0.32-4.0); Total Protein 7.2 g/dL (6.5-8.0); Vitamin D 25-OH Total 36.2 ng/mL (>30)
[2023-09-05 11:27] LABS: Folate 2.7 ng/mL (> or = 4.0); Vitamin B12 340 pg/mL (200-900)
[2023-09-06 08:16] LABS: HBS Num1 33.35 mIU/mL (0-7.99); HBc Num1 6.02 S/CO (0.00-0.79); HBsAGNum1 0.35 S/CO (0.00-0.99); Hepatitis A Antibody IgM 0.36 Index (0-0.79); Hepatitis B Surface Antigen Negative (Negative); ~HepC Num1 0.08 S/CO (0.00-0.79); ~Hepatitis A Antibody IgM Nonreactive (Nonreactive); ~Hepatitis B Surface Antibody REACTIVE (Nonreactive); ~Hepatitis C Antibody Nonreactive (Nonreactive)
[2023-09-06 09:15] LABS: HBc Num2 5.87 S/CO; HBc Num3 5.68 S/CO; Hepatitis B Core Antibody Reactive (Nonreactive)
[2023-09-06 19:48] LABS: IgA 421 mg/dL (70-320); IgG 905 mg/dL (600-1540); IgM 104 mg/dL (50-300)
[2023-09-06 22:28] LABS: Myeloperoxidase Antibody <1.0 AI; Proteinase 3 PR3 Antibodies <1.0 AI
[2023-09-06 22:38] LABS: Immunoglobulin E 20 kU/L (<OR=114)
[2023-09-10 16:08] LABS: Immunoglobulin G Subclass 1 497 mg/dL (382-929); Immunoglobulin G Subclass 2 156 mg/dL (241-700); Immunoglobulin G Subclass 3 69 mg/dL (22-178); Immunoglobulin G Subclass 4 18.3 mg/dL (4-86); Immunoglobulin G Total 806 mg/dL (600-1540)
[2023-09-11 22:09] LABS: Hu Antibody Screen, IFA Serum FLUORESCENCE NOTED (NEGATIVE); Hu Antibody Western Blot NEGATIVE (NEGATIVE)
[2023-09-20 08:57] LABS: Anti Nuclear Antibody Screen POSITIVE (NEGATIVE)
== END 2023-09-05 09:20 | disposition home or self-care (01) ==
LOC: HO.LAB 09:19
PROVIDERS: PCP Internal Medicine; Visit Provider Internal Medicine Gastroenterology
DX: Z91.018 Allergy to other foods (principal); D47.02 Systemic mastocytosis; R19.7 Diarrhea, unspecified; L40.9 Psoriasis, unspecified; R79.82 Elevated C-reactive protein (CRP); K75.81 Nonalcoholic steatohepatitis (NASH)
CPT/HCPCS: 36415; 80053; 82306; 82550; 82607; 82728; 82746; 82784; 82785; 84181; 84443; 85025; 85652; 86003; 86021; 86038; 86039; 86140; 86255; 86256; 86704; 86706; 86709; 86803; 87340

== ENCOUNTER 2023-09-07 10:02 | Outpatient (REF) | payer MEDICARE, SELFPAY ==
[2023-09-09 10:28] LABS: Calcium, Ionized 5.2 mg/dL (4.7-5.5)
[2023-09-11 16:53] LABS: Zinc 65 mcg/dL (60-130)
[2023-09-12 01:33] LABS: Alpha-Tocopherol 15.2 mg/L (5.7-19.9); Beta-Gamma Tocopherol 2.7 mg/L (<=4.3)
[2023-09-12 13:54] LABS: Vitamin A 42 mcg/dL (38-98)
[2023-09-12 21:14] LABS: Aldolase 3.9 U/L (<=8.1)
[2023-09-13 13:04] LABS: Calcitonin <2 pg/mL (<=5)
[2023-09-13 14:04] LABS: Metanephrine, Free 24U 73 mcg/24 h (90-315); Normetanephrine, Free 24U 347 mcg/24 h (122-676); Total Metanephrine, Free 24U 420 mcg/24 h (224-832); Total Volume 24U 700 mL
[2023-09-13 14:27] LABS: Vitamin C 0.2 mg/dL (0.3-2.7)
[2023-09-13 14:33] LABS: Vitamin B6 <2.0 ng/mL (2.1-21.7)
[2023-09-14 01:04] LABS: Vitamin K1 238 pg/mL (130-1500)
[2023-09-14 17:09] LABS: Histamine Plasma <1.5 ng/mL (< OR = 1.8)
[2023-09-14 18:33] LABS: Vitamin B1 <6 nmol/L (8-30)
[2023-09-14 19:34] LABS: Metanephrine, Free 36 pg/mL (<=57); Normetanephrines, Free 109 pg/mL (<=148); Total Metanephrine, Free 145 pg/mL (<=205)
[2023-09-14 21:58] LABS: Nicotinamide <20 ng/mL (see note); Vit B3 - Nicotinic Acid <20 ng/mL (see note); Vitamin B5 (Pantothenic Acid) <=40 ng/mL (<275)
[2023-09-17 15:43] LABS: Creatinine 24Hr Urine 896 mg/24 h (603 - 1783); N-Methylhistamine, 24Hr Urine 111 mcg/g Cr (30-200); Total Volume 700 mL
[2023-09-18 17:02] LABS: Hydroindolacetic Acid,5- 1.8 mg/24 h (< OR = 6.0); Total Volume 700 mL
[2023-09-18 19:59] LABS: Angiotensin Converting Enzyme 38 U/L (9-67)
== END 2023-09-07 10:03 | disposition home or self-care (01) ==
LOC: HO.LAB 10:02
PROVIDERS: PCP Internal Medicine; Visit Provider Internal Medicine Gastroenterology
DX: D47.02 Systemic mastocytosis (principal); K52.9 Noninfective gastroenteritis and colitis, unspecified; L40.9 Psoriasis, unspecified; E83.52 Hypercalcemia
CPT/HCPCS: 36415; 81050; 82085; 82164; 82180; 82308; 82330; 82542; 82943; 83088; 83497; 83520; 83835; 84207; 84307; 84425; 84446; 84586; 84590; 84591; 84597; 84630

== ENCOUNTER 2023-09-12 12:46 | Outpatient (REF) | payer MEDICARE, SELFPAY ==
[2023-09-12 15:01] LABS: Adenovirus F 40/41 Not Detected (Not Detect.); Astrovirus Not Detected (Not Detect.); Campylobacter Not Detected (Not Detect.); Cryptosporidium Not Detected (Not Detect.); Cyclospora cayetanensis Not Detected (Not Detect.); E. coli EAEC Not Detected (Not Detect.); E. coli EPEC Not Detected (Not Detect.); E. coli ETEC Not Detected (Not Detect.); E. coli STEC Not Detected (Not Detect.); Entamoeba histolytica Not Detected (Not Detect.); Giardia lamblia Not Detected (Not Detect.); Norovirus GI/GII Not Detected (Not Detect.); Plesiomonas shigelloides Not Detected (Not Detect.); Rotavirus A Not Detected (Not Detect.); Salmonella Not Detected (Not Detect.); Sapovirus Not Detected (Not Detect.); Shigella sp./EIEC Not Detected (Not Detect.); Vibrio Not Detected (Not Detect.); Vibrio Cholerae Not Detected (Not Detect.); Yersinia enterocolitica Not Detected (Not Detect.)
== END 2023-09-12 12:47 | disposition home or self-care (01) ==
LOC: HO.LNP 12:46
PROVIDERS: Visit Provider Internal Medicine Gastroenterology
DX: R19.7 Diarrhea, unspecified (principal); D47.02 Systemic mastocytosis; K52.9 Noninfective gastroenteritis and colitis, unspecified; L40.9 Psoriasis, unspecified
CPT/HCPCS: 87493; 87507

== ENCOUNTER 2023-10-08 14:55 | Outpatient (REF) | payer MEDICARE, SELFPAY ==
--- NOTE | ~2023-10-08 | MR_ITS ---
EXAMINATION: MR BRAIN WITHOUT AND WITH CONTRAST CLINICAL INFORMATION: 68-year-old with complex partial seizures. COMPARISON: None available. TECHNIQUE: Multiplanar, multisequence MRI of the brain was obtained before and after the intravenous administration of 7.0 mL Gadavist. FINDINGS: BRAIN VOLUME: Within normal limits within the limitations of qualitative assessment. STRUCTURAL: No malformations. BRAIN AND MENINGES: DWI sequence demonstrates no restricted diffusion to suggest acute or subacute cerebral ischemia. Scattered tiny foci of FLAIR/T2 signal hyperintensity are seen in the subcortical white matter of the frontal lobes bilaterally with no abnormal enhancement, which are nonspecific findings. Tiny foci of FLAIR signal hyperintensity are seen in the subinsular regions bilaterally which are nonspecific. Allowing for susceptibility artifact near the skull base, gradient refocused imaging demonstrates no definite focal susceptibility artifact to suggest hemorrhage, hemosiderin staining or abnormal mineralization. Soto-white matter interface is preserved. The mesial temporal lobe structures are bilaterally symmetric and are normal in morphology and signal intensity. No mass lesions or abnormal enhancement are seen. No extra-axial fluid collections or space-occupying process are identified. VENTRICLES AND SUBARACHNOID SPACES: The ventricular system and subarachnoid spaces are within normal range; there is no hydrocephalus. ORBITAL STRUCTURES: The visualized orbital structures are grossly unremarkable within the limitations of the study. VASCULAR: Signal voids are noted in the visualized major intracranial vessels. OSSEOUS STRUCTURES, SINUSES/MASTOIDS, EXTRACRANIAL SOFT TISSUES: Bone marrow signal intensity is within normal limits. There is submucosal thickening in the ethmoid complex and maxillary sinuses with mild nasal septal deviation to the right. MR/MR head/brain wo/w con IMPRESSION: 1. Scattered nonspecific nonenhancing white matter T2 hyperintensities in the cerebral hemispheres as described above. 2. No mass lesions, abnormal enhancement, space-occupying process, hemorrhage, extra-axial fluid collection, mass effect, or hydrocephalus. 3. Paranasal sinus inflammatory changes. Electronically signed by: Dav Gutierrez MD 10/31/2023 05:06 PM EDT
[2023-10-08] MEDS: gadobutroL 7.5 ML VIAL IVPUSH (15:47)
[2023-10-08 18:13] LABS: Blood Urea Nitrogen 13 mg/dL (9-16); Estimated Glomerular Filt Rate > 60
== END 2023-10-08 14:56 | disposition home or self-care (01) ==
LOC: HO.MRI 14:55
PROVIDERS: Absent Provider Internal Medicine Gastroenterology; PCP Internal Medicine; Visit Provider Psychiatry & Neurology Neurology
DX: G40.209 Localization-related (focal) (partial) symptomatic epilepsy and epileptic syndromes with complex partial seizures, not intractable, without status epilepticus (principal); K21.9 Gastro-esophageal reflux disease without esophagitis; K52.9 Noninfective gastroenteritis and colitis, unspecified
CPT/HCPCS: 36415; 70553; 82565; 84520; A9585

== ENCOUNTER 2023-10-23 08:15 | Outpatient (REF) | payer MEDICARE, SELFPAY ==
--- NOTE | ~2023-10-23 | CT_ITS ---
EXAMINATION: CT ENTEROGRAPHY ABDOMEN AND PELVIS WITH CONTRAST CLINICAL INFORMATION: 68-year-old female with. Umbilical pain COMPARISON: CT abdomen and pelvis from May 2016 TECHNIQUE: Study performed with oral VoLumen (1350 mL) and 480 mL of water to distend the abdomen. The patient was injected with 85 mL Omnipaque 350 intravenous contrast which was administered without adverse effect. Coronal and sagittal reformatted images were obtained at the technologist's workstation. This CT examination was performed using dose optimization techniques as appropriate, variously including the following: *Automated exposure control *Adjustment of mA and/or kV according to patient size (this includes techniques or standardized protocols for targeted exams where dose is matched to indication/reason for exam; i.e. extremities or head) *Use of iterative reconstruction technique DLP: 514 mGy-cm FINDINGS: GASTROINTESTINAL FINDINGS: Stomach: Well-distended and normal in appearance. Small intestine: Satisfactorily distended and normal in appearance. Large intestine: Well-distended and normal in appearance. No perirectal changes demonstrated. The appendix is not seen. Additional findings: No abnormal enhancement of the vasa recta or significant mesenteric or retroperitoneal lymphadenopathy is seen. No abdominal abscess or fistulous tract demonstrated. ABDOMINAL AND PELVIC CT FINDINGS: Liver, gallbladder, biliary tract: The liver is homogeneous with 3 low attenuation lesions in the liver consistent with the appearance of cysts, measured in the left lobe 1.9 cm, and 0.6 cm and in the right lobe 1.3 cm. Gallbladder is surgically absent. CBD is mildly prominent, measured 1.0 cm Pancreas: Unremarkable Spleen: Normal Adrenal glands and kidneys: There is no edema megaly or nodularity. Both kidneys revealed normal attenuation and size without hydronephrosis, nephrolithiasis or masses. Ureters and bladder: Ureters are not dilated. Urinary bladder is partially distended without stones or masses Lymphovascular structures: There is no evidence of lymphadenopathy. Abdominal aorta is not dilated. Bones: Unremarkable Lung bases: Clear CT/CT enterography IMPRESSION: Unremarkable examination. Status post cholecystectomy with mildly prominent CBD. Hepatic cysts. Electronically signed by: Scotty Carolina MD 11/21/2023 08:46 AM EDT
[2023-10-23] MEDS: iohexoL 350 MG/ML 100 ML INFUS..BTL 85 ML IV (10:55)
[2023-10-23] MEDS: Sorbitol/Mannit/Xanth Imaging 500 ML LIQUID 1500 ML PO (10:57)
== END 2023-10-23 08:16 | disposition home or self-care (01) ==
LOC: HO.CT 08:15
PROVIDERS: PCP Internal Medicine; Visit Provider Internal Medicine Gastroenterology
DX: R10.33 Periumbilical pain (principal); D47.02 Systemic mastocytosis; K52.9 Noninfective gastroenteritis and colitis, unspecified; L40.9 Psoriasis, unspecified
CPT/HCPCS: 74177; Q9967

== ENCOUNTER 2023-12-04 11:16 | Outpatient (REF) | payer MEDICARE, SELFPAY ==
--- NOTE | ~2023-12-04 | MM_ITS ---
EXAMINATION: MM SCREENING DIGITAL BREAST TOMOSYNTHESIS, BILATERAL CLINICAL INFORMATION: Screening. Asymptomatic. COMPARISON: Mammography: Comparison is made with available priors TECHNIQUE: Digital breast mammography with tomosynthesis is performed in both the craniocaudal and mediolateral oblique views along with computer-aided detection (CAD). FINDINGS: There are scattered areas of fibroglandular density (ACR BI-RADS breast composition Category b). There are no significant masses, abnormal calcifications, or other abnormalities. MM/MM tomosynthesis screening BI IMPRESSION: No mammographic evidence of malignancy. ASSESSMENT: BI-RADS BI-RADS 1 - Negative RECOMMENDATION: Routine annual mammography screening. 1 year F/U This examination should not preclude the clinical evaluation of a suspicious palpable abnormality. This patient's information was entered into a reminder system with a target due date for their next mammogram. Electronically signed by: Frieda Michel DO 12/14/2023 04:53 PM EDT
== END 2023-12-04 11:17 | disposition home or self-care (01) ==
LOC: HO.MAMMO 11:16
PROVIDERS: PCP Internal Medicine; Visit Provider Internal Medicine
DX: Z12.31 Encounter for screening mammogram for malignant neoplasm of breast (principal)
CPT/HCPCS: 77063; 77067

== ENCOUNTER → 2023-12-04 11:30 | Outpatient (BNV) | payer MEDICARE, SELFPAY | PROVIDERS: PCP Internal Medicine; Visit Provider Internal Medicine | DX: Z12.31 Encounter for screening mammogram for malignant neoplasm of breast (principal) | CPT/HCPCS: 77063; 77067 ==

== ENCOUNTER 2023-12-08 09:22 | Outpatient (REF) | payer MEDICARE, SELFPAY ==
[2023-12-08 09:41] LABS: MANUAL DIFF FLAG NO
[2023-12-08 10:15] LABS: Basophils Absolute Auto 0.1 X10*3/uL (0.0-0.2); Basophils Percent Auto 0.8 % (0-2); Eosinophils Absolute Auto 0.2 X10*3/uL (0.0-0.4); Eosinophils Percent Auto 2.5 % (0-4); Hematocrit 39.2 % (37.0-47.0); Imm Gran Abs Auto 0.02 X10*3/uL (0.00-0.03); Imm Gran Pct Auto 0.2 % (0.0-0.4); Lymphocytes Absolute Auto 2.4 X10*3/uL (1.2-4.9); Lymphocytes Percent Auto 28.3 % (20-40); Mean Corpuscular HGB Conc 33.2 g/dl (31.0-35.0); Mean Corpuscular Hemoglobin 30.2 pg (27.0-33.0); Mean Platelet Volume 10.2 fL (9.4-12.3); Monocytes Absolute Auto 0.4 X10*3/uL (0.1-1.2); Neutrophils Absolute Auto 5.3 x10*3/uL (2.0-8.3); Neutrophils Percent Auto 63.2 % (45-73); Platelet Count 270 X10*3/uL (160-400); Red Blood Count 4.31 X10*6/uL (4.20-5.50); Red Cell Distribution Width 12.6 % (11.0-16.0); White Blood Count 8.4 X10*3/uL (4.8-10.8)
[2023-12-08 10:27] LABS: Appearance Urine Cloudy; Color Urine Yellow; Glucose Urine UA Negative (Negative); Leukocyte Esterase Urine Negative (Negative); Nitrite Urine Negative (Negative); PH 5.5 (5.0-9.0); Specific Gravity - Urine >= 1.030 (1.005-1.025); Urine Blood Negative (Negative); Urine Ketones Negative (Negative); Urine Protein Negative (Neg-Trace)
[2023-12-08 10:34] LABS: Estimated Average Glucose 97 mg/dL; Hemoglobin A1C 100.1181 umol/L; Total Hemoglobin (HGBA1C) 3201.0189 umol/L
[2023-12-08 10:58] LABS: Alanine Aminotransferase 19 U/L (0-31); Albumin Level 3.9 g/dL (3.5-5.0); Alkaline Phosphatase 84 U/L (39-117); Anion Gap 11 (12-20); Aspartate Amino Transferase 15 U/L (5-31); Bilirubin Total 0.5 mg/dL (0.0-1.0); Blood Urea Nitrogen 12 mg/dL (9-16); Calcium 9.3 mg/dL (8.4-10.2); Carbon Dioxide 24 mmol/L (22-29); Chloride 111 mmol/L (96-108); Cholesterol 144 mg/dL (<200); Estimated Glomerular Filt Rate > 60; Glucose Fasting 102 mg/dL (60-99); HDL Cholesterol 49 mg/dL (>40); LDL Cholesterol Calculated 67 mg/dL (<100); Potassium 3.8 mmol/L (3.3-5.1); Sodium 142 mmol/L (135-145); Total Protein 6.6 g/dL (6.5-8.0); Triglycerides 143 mg/dL (<150)
[2023-12-08 11:14] LABS: Vitamin D 25-OH Total 29.3 ng/mL (>30)
[2023-12-08 11:16] LABS: Vitamin B12 327 pg/mL (200-900)
== END 2023-12-08 09:23 | disposition home or self-care (01) ==
LOC: HO.LAB 09:22
PROVIDERS: PCP Internal Medicine; Visit Provider Internal Medicine
DX: D64.9 Anemia, unspecified (principal); E78.00 Pure hypercholesterolemia, unspecified; R73.01 Impaired fasting glucose; R30.0 Dysuria; Q24.9 Congenital malformation of heart, unspecified; E53.8 Deficiency of other specified B group vitamins; E55.9 Vitamin D deficiency, unspecified
CPT/HCPCS: 36415; 80053; 80061; 81003; 82306; 82607; 82746; 83036; 85025

== ENCOUNTER 2023-12-17 11:00 | Outpatient (AMB) | payer MEDICARE, SELFPAY ==
--- NOTE | 2023-12-17 11:01 | MHC.OFFVIS ---
Vital Signs 12/17/23 11:02 Height 5 ft 1 in Weight 149 lb 14.629 oz BMI 28.3 Blood Pressure Location Lt brachial Position Sitting Intake Visit Reasons: 3 month follow up Intake Note: Franca presents in the office as a 3 month follow up. CC: Wants to talk about changing the colesevalem - there is something that is like it but cheaper with the insurance company. She states that she is having the same issues with her stomach - she states that she has been having itching around her body a lot more. 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: No Allergies prochlorperazine [From COMPAZINE] Allergy (Severe, Verified 12/17/23 11:03) SEIZURES HPI HPI 3 month follow up: Details: 68-year-old female being seen for f/u RECAP: Had long standing issues with diarrhea going on for 20 yrs at least she did have some good response with colesevelam which had reduced the severity but not taken it away she had bloating and ruq pain and discomfort TESTS celiac serology nml TSH nml CBC nml, eos nml neg GI hormone panel fecal colleen - neg EGD/colonoscopy: 2021 tubular adenomas x 2, chronic duodenitis, neg TI and colon bx CTe: neg for inflammation INTERIM: she tried rifaxmin but no benefit she feels her diarrhea has been ongoing numbness left thigh appetite is fair no abdominal pain itching legs whihc is new EXAM: GENERAL: The patient is well developed and nontoxic. VITAL SIGNS:see workflow HEENT: Nonicteric sclerae, PERRLA, EOMI. Oropharynx clear. Moist mucous membranes. Conjunctivae appear well perfused. No thyroid mass. CHEST: Chest wall is nontender. HEART: Regular rate and rhythm without murmurs. LUNGS: Clear to auscultation bilaterally. ABDOMEN: Soft, positive bowel sounds, nontender, no organomegaly.no flank tenderness SKIN: No rash, no excessive bruising, petechiae, or purpura. NEUROLOGIC: Cranial nerves II-XII intact without motor/sensory deficit. 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 PFSH Medical History GERD (gastroesophageal reflux disease) Folate deficiency Vitamin B12 deficiency Vitamin D deficiency Arthritis Cardiac abnormality Overweight (BMI 25.0-29.9) Anxiety Pure hypercholesterolemia MGUS (monoclonal gammopathy of unknown significance) Fibromyalgia Neuropathy of right lower extremity Psoriasis Surgical History History of colonoscopy History of removal of cyst Status post cryoablation History of bowel resection History of tonsillectomy Family History Father Mother Bladder cancer Arthritis Sister Breast cancer Sister Breast cancer Maternal Aunt Breast cancer Social History Housing: House Alcohol intake: never Patient Tobacco Use Status: Former Tobacco user Tobacco use type: Cigarette e-Cigarette/Vaping Use: Never Used Second Hand Smoke Exposure: No service: No Current occupational status: employed Cognitive needs: No Hearing needs: No Vision needs: Yes (reading glasses) Physical Exam Vital Signs: BMI result Body Mass Index 28.3 Assessment & Plan Assessment & Plan (1) Chronic diarrhea: Code(s): K52.9 - Noninfective gastroenteritis and colitis, unspecified Category: Medical Plan: se above (2) Malnutrition: Code(s): E46 - Unspecified protein-calorie malnutrition Category: Medical Plan: see above Orders: Orders Vitamin B12 and Folate Today E46 - Unspecified protein-calorie malnutrition, K52.9 - Noninfective gastroenteritis and colitis, unspecified Vitamin B5 (Pantothenic Acid) Today E46 - Unspecified protein-calorie malnutrition, K52.9 - Noninfective gastroenteritis and colitis, unspecified Vitamin B6 Today E46 - Unspecified protein-calorie malnutrition, K52.9 - Noninfective gastroenteritis and colitis, unspecified Vitamin K1 Today E46 - Unspecified protein-calorie malnutrition, K52.9 - Noninfective gastroenteritis and colitis, unspecified Zinc Today E46 - Unspecified protein-calorie malnutrition, K52.9 - Noninfective gastroenteritis and colitis, unspecified Fecal Fat Qualitative Today E46 - Unspecified protein-calorie malnutrition, K52.9 - Noninfective gastroenteritis and colitis, unspecified Giardia Ag Stool EIA Today E46 - Unspecified protein-calorie malnutrition, K52.9 - Noninfective gastroenteritis and colitis, unspecified Vitamin A Today E46 - Unspecified protein-calorie malnutrition, K52.9 - Noninfective gastroenteritis and colitis, unspecified Vitamin B1 Today E46 - Unspecified protein-calorie malnutrition, K52.9 - Noninfective gastroenteritis and colitis, unspecified Vitamin B3 (Niacin) Today E46 - Unspecified protein-calorie malnutrition, K52.9 - Noninfective gastroenteritis and colitis, unspecified Vitamin C Today E46 - Unspecified protein-calorie malnutrition, K52.9 - Noninfective gastroenteritis and colitis, unspecified Vitamin D 25-OH Total Today E46 - Unspecified protein-calorie malnutrition, K52.9 - Noninfective gastroenteritis and colitis, unspecified Vitamin E Today E46 - Unspecified protein-calorie malnutrition, K52.9 - Noninfective gastroenteritis and colitis, unspecified Rast Allergen Today E46 - Unspecified protein-calorie malnutrition, K52.9 - Noninfective gastroenteritis and colitis, unspecified, Z91.018 - Allergy to other foods Immunoglobulin E Today E46 - Unspecified protein-calorie malnutrition, K52.9 - Noninfective gastroenteritis and colitis, unspecified Medications: New sodium,potassium,mag sulfates 17.5-3.13-1.6 gram (Suprep Bowel Prep Kit) DILUTE; drink 1/2 at 6-8 pm and half at 11 PM- 1AM 354 mL 0RF cholestyramine (with sugar) 4 gram administer w/meal; avoid other meds within 1hr before or 4-6hr after dose 4 grams PO BID 378 grams 1RF Discontinued colesevelam Discontinued Reason: Doctor's Order 1,250 mg (2 x 625 mg) PO BID 90 days 360 tabs 1RF for diarrhea Coding Level of Care Code Est Pt Level 4 (71583) Diagnoses Chronic diarrhea K52.9 Malnutrition E46
[2023-12-17 11:02] VITALS: BMI 28.3
== END 2023-12-17 12:34 | disposition home or self-care (01) ==
PROVIDERS: PCP Internal Medicine; Visit Provider Internal Medicine Gastroenterology
DX: K52.9 Noninfective gastroenteritis and colitis, unspecified (principal); E46 Unspecified protein-calorie malnutrition
CPT/HCPCS: 99214

== ENCOUNTER → 2023-12-17 11:00 | Outpatient (BNVA) | payer MEDICARE, SELFPAY | PROVIDERS: PCP Internal Medicine; Visit Provider Internal Medicine Gastroenterology | DX: K52.9 Noninfective gastroenteritis and colitis, unspecified (principal); E46 Unspecified protein-calorie malnutrition; Z91.018 Allergy to other foods | CPT/HCPCS: 99212 ==

== ENCOUNTER 2023-12-18 10:25 | Outpatient (AMB) | payer MEDICARE, SELFPAY ==
[2023-12-18 10:31] VITALS: BP 126/82; PULSE 57; O2SAT 98; BMI 28.6
--- NOTE | 2023-12-18 10:31 | MHC.PC.OV ---
Vital Signs 12/18/23 10:31 Height 5 ft 1 in Weight 151 lb 4 oz BMI 28.6 BP 126/82 Blood Pressure Location Lt brachial Position Sitting Pulse 57 Pulse Source Pulse Oximeter Pulse Oximetry (%) 98 Oxygen Delivery Method Room Air Intake Visit Reasons: hyperlipidemia, palpitations, syncopal episode? Radiocommunications Technician Required: No Accompanied by: Self / Same As Patient Allergies prochlorperazine [From COMPAZINE] Allergy (Severe, Verified 12/18/23 11:11) SEIZURES Medication List - Last Reconciled 12/18/23 by Fran Chua MD albuterol sulfate 90 mcg/actuation (ProAir HFA) 2 puffs inhalation Q6H PRN 30 days amlodipine 5 mg PO DAILY 90 days ascorbic acid (vitamin C) 1 g PO DAILY atorvastatin 10 mg PO BEDTIME 90 days baclofen 20 mg PO TID PRN 10 days cholestyramine (with sugar) 4 gram 4 grams PO BID cromolyn 200 mg (10 mL) PO QID 90 days epinephrine (EpiPen 2-Kai) 0.3 mg (0.3 mL) IM Q10M PRN famotidine (Pepcid) 40 mg PO BEDTIME PRN 90 days fluticasone propionate 50 mcg/actuation (Flonase Allergy Relief) 1 spray intranasal Q12H PRN 30 days folic acid 0.8 mg PO DAILY loratadine (Claritin) 10 mg PO DAILY 90 days pyridoxine (vitamin B6) 100 mg PO DAILY rifaximin 550 mg PO TID 2 weeks sodium,potassium,mag sulfates 17.5-3.13-1.6 gram (Suprep Bowel Prep Kit) DILUTE; drink 1/2 at 6-8 pm and half at 11 PM- 1AM thiamine HCl (vitamin B1) 100 mg PO TID [WRIST BRACES (bilateral) As directed] Tobacco use date assessed: 12/18/23 Fall risk assessment: No Falls in past year Last assessed Fall Risk: 12/18/23 Dental Screening Dental Screen Date: 12/18/23 Did you have a dental visit in the last 12 months?: No Did you have a dental problem in the last 6 months where you did not have access to dental care?: No Was dental information given to patient?: No HPI hyperlipidemia, palpitations, syncopal episode? HPI Details Patient comes in today for her follow up visit Patient states that she has been experiencing recurrent itching all over lately - feels that her symptoms are more pronounced at night, with occasional occurrences during the day and often involve her legs, neck, shoulders, and back States that her symptoms started a few months ago and that the itchy areas would often feel warm to touch and appear red and causes significant discomfort requiring intervention To alleviate symptoms, patient uses ice packs, which she states significantly reduce the itching She denies any history of psoriasis and denies any recent travel, health interventions or lifestyle changes preceding these new symptoms Adds that she seems to be bleeding frequently lately, especially after she has her labs drawn, and have prompted queries during blood draws as to whether she is on any anticoagulant therapy, which she denies States that the bleeding has not posed a major concern for her, but it has been recurrent enough to warrant further investigation She denies any headaches or dizziness Denies any chest pains, no increased SOB No nausea/vomiting, no abdominal pain No change in bowel habits noted She had her follow up labs done a couple of weeks ago - to discuss her results [facility] Medical History GERD (gastroesophageal reflux disease) Folate deficiency Vitamin B12 deficiency Vitamin D deficiency Arthritis Cardiac abnormality Overweight (BMI 25.0-29.9) Anxiety Pure hypercholesterolemia MGUS (monoclonal gammopathy of unknown significance) Fibromyalgia Neuropathy of right lower extremity Psoriasis Surgical History History of colonoscopy History of removal of cyst Status post cryoablation History of bowel resection History of tonsillectomy Family History Father Mother Bladder cancer Arthritis Sister Breast cancer Sister Breast cancer Maternal Aunt Breast cancer Social History Housing: House Alcohol intake: never Patient Tobacco Use Status: Former Tobacco user Tobacco use type: Cigarette e-Cigarette/Vaping Use: Never Used Second Hand Smoke Exposure: No service: No Current occupational status: employed Cognitive needs: No Hearing needs: No Vision needs: Yes (reading glasses) Questionnaire PHQ-9 Over the last 2 weeks, how often have you been bothered by any of the following problems? 1. Little interest or pleasure in doing things: not at all 2. Feeling down, depressed, or hopeless: not at all 3. Trouble falling or staying asleep, or sleeping too much: not at all 4. Feeling tired or having little energy: not at all 5. Poor appetite or overeating: not at all 6. Feeling bad about yourself - or that you are a failure or have let yourself or your family down: not at all 7. Trouble concentrating on things, such as reading the newspaper or watching television: not at all 8. Moving or speaking so slowly that other people could have noticed. Or the opposite - being so fidgety or restless that you have been moving around a lot more than usual: not at all 9. Thoughts that you would be better off or of hurting yourself in some way: not at all Total score: 0 Depression Screening Interpretation: Negative Depression Screening Done: Yes 45134 - PHQ-9 Billing: Yes Source: Developed by Drs. Van Mcqueen, Valorie Pierson, Kendrick Pfeiffer and colleagues, with an educational veto from [employer]. Thrive Questionnaire Date Thrive assessed: 12/18/23 I am a: Patient What is your living situation today?: I have a steady place to live Within the past 12 months, did the food you bought not last and you didn't have the money to get more?: Never true Within the past 12 months, did you worry whether your food would run out before you got money to buy more?: Never true Do you have trouble paying for medicines?: No Do you have trouble getting transportation to medical appointments?: No Do you have trouble paying your heating and electricity bill?: No Do you have trouble taking care of your child, family member or friend?: No Do you have trouble with day-to-day activities such as bathing, preparing meals, shopping, managing finances, etc.?: No Are you currently unemployed and looking for a job?: No Are you interested in more education?: No Please select the resources that you would like help with: None Currently or been in a relationship where the following occur: No concerns reported THRIVE Score: 0 AUDIT C Alcohol Use Questionnaire (AUDIT-C) 1. How often do you have a drink containing alcohol?: Never 3. How often do you have six or more drinks on one occasion?: Never Total Score: 0 Score Reviewed/Action Taken: Yes YUNI-7 AMB Questionnaire YUNI-7 Date YUNI - 7 assessed: 12/18/23 Feeling nervous, anxious, or on edge: 0 = Not at all Not being able to stop or control worryin = Not at all Worrying too much about different things: 0 = Not at all Trouble relaxin = Not at all Being so restless that it is hard to sit still: 0 = Not at all Becoming easily annoyed or irritable: 0 = Not at all Feeling afraid as if something awful might happen: 0 = Not at all Total YUNI-7 score (0-4 normal; 5-9 mild; 10-14 moderate; 15-21 severe): 0 Source: Developed by Drs. Van Mcqueen, Valorie Pierson, Kendrick Pfeiffer and colleagues, with an educational veto from [employer]. YUNI-7 Assessment Billing YUNI-7 Assessment Tool: YUNI-7 Assessment 70859 Review of Systems Const Denies chills, Reports fatigue (often immediately after eating), Denies fever(s) and Denies headache(s) ENT Denies dysphagia, Denies dizziness, Denies otalgia, Denies headache(s), Denies neck pain, Denies odynophagia and Denies sore throat Card Denies chest pain, Reports rapid heart rate (at times), Reports palpitations (occasional sensation of palpitations) and Denies dyspnea (but notes some chest tightness when palpitations occur) Resp Denies chest congestion, Denies cough, Denies dyspnea (but notes some chest tightness when palpitations occur) and Denies wheezing GI Denies abdominal pain, Denies constipation, Denies dysphagia, Reports heartburn (occasionally now), Reports diarrhea (often after she eats), Reports loose stools, Denies nausea, Denies odynophagia and Denies vomiting Denies difficulty voiding, Denies nocturia and Denies dysuria Musc Denies back pain, Reports arthralgias (in both thumbs) and Denies neck pain Skin/Breast Reports pruritus (increased lately, especially at night - see HPI) and Denies rash Neuro Denies dizziness and Denies headache(s) Psych Reports anxiety Endo Reports fatigue (often immediately after eating) and Reports palpitations (occasional sensation of palpitations) Junito/Lymph Reports as per HPI Aller/Immun Denies wheezing Physical exam (Primary Care) Vital Signs: Last Vital Signs Pulse 57 12/18/23 10:31 BP 126/82 12/18/23 10:31 Pulse Ox 98 12/18/23 10:31 Oxygen Delivery Method Room Air 12/18/23 10:31 BMI result Body Mass Index 28.6 Tobacco/Smoking Status: Tobacco use Status Tobacco use date assessed 12/18/23 12/18/23 10:32 Patient Tobacco Use Status Former Tobacco user 12/18/23 10:32 Tobacco use type Cigarette 12/18/23 10:32 e-Cigarette/Vaping Use Never Used 12/18/23 10:32 PHQ-9: PHQ-9 Score PHQ-9: Total score 0 12/18/23 10:32 Depression Screening Interpretation: Negative Thrive Assessment: Date of Thrive Assessment Date Thrive assessed 12/18/23 12/18/23 10:32 Currently or been in a relationship where the following occur: No concerns reported Const General: no acute distress and alert Orientation/consciousness: patient oriented x3 HENMT Ears: TM's normal bilaterally and EAC's normal Throat: Yes posterior oropharynx normal and Yes tonsils normal (no TP congestion noted) Neck Neck: Yes no lymphadenopathy and Yes supple Thyroid: Thyroid normal Resp Auscultation: clear to auscultation bilaterally, no rales and no wheezes Cardio Rate: regular rate Rhythm: regular rhythm Heart sounds: no murmurs GI Palpation (GI): Soft to palpation and nontender Auscultation: normal bowel sounds General: Yes no CVA tenderness Back/Spine/Pelvis Back: no CVA tenderness Thoracic/Lumbar Spine: No lumbar spinal tenderness Skin Rashes: no rashes Neuro General: patient oriented x3 Cognition (Neuro): normal cognition Extrem Other: (+) tenderness over the MCP and proximal IP joints of both thumbs General: No clubbing, No cyanosis and Yes pedal edema (1+ bilateral) Office Procedures Flu Questionnaire Does the patient have a severe egg allergy?: No Immunizations Fluarix Triv [id number] (PF) 45 mcg (15 mcg x 3)/0.5 mL IM syringe Performing Provider: Fran Chua MD [facility] Documented (not given) by: ROBERT Reynolds on 12/18/23 10:37 Reason Not Given: Patient Refused Results Reviewed Results Reviewed: Laboratory Tests 12/08/23 12/08/23 09:35 09:40 WBC 8.4 Hgb 13.0 Hct 39.2 Plt Count 270 Sodium 142 Potassium 3.8 Creatinine 0.82 Estimated GFR > 60 Fasting Glucose 102 H Hemoglobin A1c % 5.0 Calcium 9.3 AST 15 ALT 19 Triglycerides 143 Cholesterol 144 LDL Cholesterol, Calc 67 HDL Cholesterol 49 Ur Specific [place] >= 1.030 H Urine Protein Negative Urine Glucose (UA) Negative Urine Blood Negative Urine Nitrite Negative Ur Leukocyte Esterase Negative Coding Level of Care Code Est Pt Level 4 (42182) Diagnoses Essential hypertension I10 Palpitations R00.2 Syncope, unspecified syncope type R55 Syncope type: unspecified Pure hypercholesterolemia E78.00 Frequent diarrhea R19.7 Psoriasis L40.9 Gastroesophageal reflux disease without esophagitis K21.9 Esophagitis presence: without esophagitis Environmental and seasonal allergies J30.89 Vitamin D deficiency E55.9 Vitamin B12 deficiency E53.8 Folate deficiency E53.8 Anxiety F41.9 Additional Codes YUNI-7 Assessment Billing - YUNI-7 Assessment Tool: YUNI-7 Assessment 93150 ([id number]) Assessment & Plan Assessment & Plan (1) Essential hypertension: Code(s): I10 - Essential (primary) hypertension Category: Medical (2) Palpitations: Code(s): R00.2 - Palpitations Category: Medical (3) Syncopal episodes: Code(s): R55 - Syncope and collapse Category: Medical Qualifiers: Syncope type: unspecified Qualified Code(s): R55 - Syncope and collapse (4) Pure hypercholesterolemia: Code(s): E78.00 - Pure hypercholesterolemia, unspecified Category: Medical (5) Frequent diarrhea: Code(s): R19.7 - Diarrhea, unspecified Category: Medical (6) Psoriasis: Comment: Resent referral to Rheumatology Code(s): L40.9 - Psoriasis, unspecified Category: Medical (7) GERD (gastroesophageal reflux disease): Code(s): K21.9 - Gastro-esophageal reflux disease without esophagitis Category: Medical Qualifiers: Esophagitis presence: without esophagitis Qualified Code(s): K21.9 - Gastro-esophageal reflux disease without esophagitis (8) Environmental and seasonal allergies: Code(s): J30.89 - Other allergic rhinitis Category: Medical (9) Vitamin D deficiency: Code(s): E55.9 - Vitamin D deficiency, unspecified Category: Medical (10) Vitamin B12 deficiency: Code(s): E53.8 - Deficiency of other specified B group vitamins Category: Medical (11) Folate deficiency: Code(s): E53.8 - Deficiency of other specified B group vitamins Category: Medical (12) Anxiety: Code(s): F41.9 - Anxiety disorder, unspecified Category: Medical Plan Follow up in 6 months Orders: Orders Influenza [id number] Immunization Today Z23 - Encounter for immunization Lipid Panel 6 Months E78.00 - Pure hypercholesterolemia, unspecified Comprehensive [place]. Panel Fast 6 Months E78.00 - Pure hypercholesterolemia, unspecified Vitamin B12 and Folate 6 Months E53.8 - Deficiency of other specified B group vitamins Prothrombin Time INR 6 Months D69.9 - Hemorrhagic condition, unspecified, Z79.01 - [facility] (current) use of anticoagulants Partial Thromboplastin Time 6 Months D69.9 - Hemorrhagic condition, unspecified Fibrinogen 6 Months D69.9 - Hemorrhagic condition, unspecified Factor V Leiden 6 Months D69.9 - Hemorrhagic condition, unspecified Complete Blood Count Auto Diff 6 Months D64.9 - Anemia, unspecified TSH reflex Free T4 6 Months E78.00 - Pure hypercholesterolemia, unspecified UA CC w/rflx Micro + Cult 6 Months R30.0 - Dysuria Vitamin D 25-OH Total 6 Months E55.9 - Vitamin D deficiency, unspecified Hemoglobin A1c 6 Months R73.01 - Impaired fasting glucose Von Willebrand Factor Antigen 6 Months D68.00 - Von Willebrand disease, unspecified, D69.9 - Hemorrhagic condition, unspecified
== END 2023-12-18 11:31 | disposition home or self-care (01) ==
PROVIDERS: PCP Internal Medicine; Visit Provider Internal Medicine
DX: Z23 Encounter for immunization (principal)

== ENCOUNTER → 2023-12-18 10:25 | Outpatient (BNVA) | payer MEDICARE, SELFPAY | PROVIDERS: PCP Internal Medicine; Visit Provider Internal Medicine | DX: I10 Essential (primary) hypertension (principal); R00.2 Palpitations; R55 Syncope and collapse; E78.00 Pure hypercholesterolemia, unspecified; R19.7 Diarrhea, unspecified; L40.9 Psoriasis, unspecified; K21.9 Gastro-esophageal reflux disease without esophagitis; J30.89 Other allergic rhinitis; E55.9 Vitamin D deficiency, unspecified; E53.8 Deficiency of other specified B group vitamins; D69.9 Hemorrhagic condition, unspecified; F41.9 Anxiety disorder, unspecified; E66.3 Overweight; Z79.899 Other long term (current) drug therapy; Z28.21 Immunization not carried out because of patient refusal | CPT/HCPCS: 90471; 96127; 99212 ==

== ENCOUNTER 2024-04-09 07:54 | Day surgery (SDC) | payer MEDICARE, SELFPAY ==
[2024-04-07 14:54] VITALS: BMI 28.3
--- NOTE | 2024-04-08 13:54 | HO.ANESPROP2 ---
HPI - Anesthesia Eval Consult details Narrative: 69yo F for Upper Endoscopy and Colonoscopy PMF Active Problems Active Problems: All Active Problems Bleeds easily (Acute) Malnutrition (Acute) Impaired fasting glucose (Acute) Syncopal episodes (Acute) Acute lumbar myofascial strain (Acute) Bilateral thumb pain (Acute) Cough (Acute) COVID-19 (Acute) Viral upper respiratory illness (Acute) Diarrhea (Acute) Anaphylactic reaction (Acute) Environmental and seasonal allergies (Acute) Systemic mastocytosis (Acute) Tubular adenoma (Acute) Acid reflux (Acute) Cardiac abnormality (Acute) Chronic diarrhea (Acute) SOB (shortness of breath) (Acute) Precordial chest pain (Acute) Essential hypertension (Acute) Frequent diarrhea (Acute) Palpitations (Acute) GERD (gastroesophageal reflux disease) (Acute) Folate deficiency (Acute) Vitamin B12 deficiency (Acute) Vitamin D deficiency (Acute) Arthritis (Acute) Overweight (BMI 25.0-29.9) (Acute) Anxiety (Acute) Pure hypercholesterolemia (Acute) Psoriasis (Acute) Past Medical History Medical History (Updated 04/07/24 @ 14:52 by Chasity Bryant RN) Palpitations GERD (gastroesophageal reflux disease) Folate deficiency Vitamin B12 deficiency Vitamin D deficiency Arthritis Overweight (BMI 25.0-29.9) Anxiety Pure hypercholesterolemia MGUS (monoclonal gammopathy of unknown significance) Fibromyalgia Neuropathy of right lower extremity Psoriasis Family History Family History Father Mother Bladder cancer Arthritis Sister Breast cancer Sister Breast cancer Maternal Aunt Breast cancer Family history of problems with anesthesia: No Surgical History Surgical History (Updated 04/07/24 @ 14:45 by Chasity Bryant RN) History of esophagogastroduodenoscopy (EGD) History of colonoscopy History of removal of cyst Status post cryoablation History of bowel resection History of tonsillectomy History of Problems with Anesthesia: No Social History Social History Housing: House Alcohol intake: never Patient Tobacco Use Status: Former Tobacco user Tobacco use type: Cigarette e-Cigarette/Vaping Use: Never Used Second Hand Smoke Exposure: No service: No Current occupational status: employed Cognitive needs: No Hearing needs: No Vision needs: Yes (reading glasses) Meds Allergies Allergy/AdvReac Type Severity Reaction Status Date / Time bee pollen [bees] Allergy Severe Anaphylaxis Verified 04/08/24 09:56 prochlorperazine Allergy Severe SEIZURES Verified 12/18/23 11:11 [From COMPAZINE] Exam Height,Weight and Vital Signs: Height 5 ft 1 in Weight 68.039 kg Assessment and Plan Assessment Anesthesia Assessment: Chart Reviewed Final Anesthetic Review Family History of Problems with Anesthesia: No History of Problems with Anesthesia: No
[2024-04-09 08:17] VITALS: BP 135/91; PULSE 109; RESP 20; TEMP 36.6; O2SAT 95; BMI 28.6
--- NOTE | 2024-04-09 08:37 | MHC.SHP ---
Pre-Procedural Eval Section A - 24 Hr Update-Section A only Date of Service: 04/09/24 Section B - Complete if H&P > 30 days Chief Complaint: Noninfective gastroenteritis and colitis, unspecif Relevant Family History (Specify if Yes): No Relevant Social History: None Present Medications: see Short Stay Collaborative assessment Medical History: Significant History (Palpitations GERD (gastroesophageal reflux disease) Folate deficiency Vitamin B12 deficiency Vitamin D deficiency Arthritis Overweight (BMI 25.0-29.9) Anxiety Pure hypercholesterolemia MGUS (monoclonal gammopathy of unknown significance) Fibromyalgia Neuropathy of right lower extremity Psoriasis) History of Previous Operations: Relevant previous surgery/procedure and date(s) (History of esophagogastroduodenoscopy (EGD) History of colonoscopy History of removal of cyst Status post cryoablation History of bowel resection History of tonsillectomy) Allergies: Allergies Allergy/AdvReac Type Severity Reaction Status Date / Time bee pollen [bees] Allergy Severe Anaphylaxis Verified 04/08/24 09:56 prochlorperazine Allergy Severe SEIZURES Verified 12/18/23 11:11 [From COMPAZINE] Review of Systems Sugical H&P ROS: Negative: Constitution, Cardiovascular, Respiratory, Neurological, Psychiatric, Hem-Onc, Allergic/Immunologic, Gastrointestinal, Genitourinary, Musculoskeletal, Integumentary, Endocrine and Eyes/Ears/Nose/Throat Exam Surgical H&P Exam: Normal: HEENT, Normal: Heart, Normal: Lungs, Normal: Extremities, Normal: Abdomen, Normal: Skin and Normal: Neurological Plan Diagnosis/Plan: Unchanged I have reviewed the history and physical and performed a pertinent physical examination on my patient. No changes have occurred unless specified. Time Spent With Patient Time: Total time managing care of this patient today ____ minutes.
[2024-04-09] MEDS: Lactated Ringers 1,000 ML 100 ML IVCONT (08:45)
--- NOTE | 2024-04-09 09:32 | P.CONAN_ITS ---
FORMERLY [facility], [facility] Active Problems Active Problems: All Active Problems Bleeds easily (Acute) Malnutrition (Acute) Impaired fasting glucose (Acute) Syncopal episodes (Acute) Acute lumbar myofascial strain (Acute) Bilateral thumb pain (Acute) Cough (Acute) COVID-19 (Acute) Viral upper respiratory illness (Acute) Diarrhea (Acute) Anaphylactic reaction (Acute) Environmental and seasonal allergies (Acute) Systemic mastocytosis (Acute) Tubular adenoma (Acute) Acid reflux (Acute) Cardiac abnormality (Acute) Chronic diarrhea (Acute) SOB (shortness of breath) (Acute) Precordial chest pain (Acute) Essential hypertension (Acute) Frequent diarrhea (Acute) Palpitations (Acute) GERD (gastroesophageal reflux disease) (Acute) Folate deficiency (Acute) Vitamin B12 deficiency (Acute) Vitamin D deficiency (Acute) Arthritis (Acute) Overweight (BMI 25.0-29.9) (Acute) Anxiety (Acute) Pure hypercholesterolemia (Acute) Psoriasis (Acute) Past Medical History Medical History Palpitations GERD (gastroesophageal reflux disease) Folate deficiency Vitamin B12 deficiency Vitamin D deficiency Arthritis Overweight (BMI 25.0-29.9) Anxiety Pure hypercholesterolemia MGUS (monoclonal gammopathy of unknown significance) Fibromyalgia Neuropathy of right lower extremity Psoriasis Functional capacity: independent ambulation Patient : No Family History Family History Father Mother Bladder cancer Arthritis Sister Breast cancer Sister Breast cancer Maternal Aunt Breast cancer Family history of problems with anesthesia: No Surgical History Surgical History History of esophagogastroduodenoscopy (EGD) History of colonoscopy History of removal of cyst Status post cryoablation History of bowel resection History of tonsillectomy History of Problems with Anesthesia: No Social History Social History Housing: House Alcohol intake: never Patient Tobacco Use Status: Former Tobacco user Tobacco use type: Cigarette e-Cigarette/Vaping Use: Never Used Second Hand Smoke Exposure: No Are you DNR?: No Advance Directives: No Advance Directives Information Provided: Yes service: No Current occupational status: employed Cognitive needs: No Hearing needs: No Vision needs: Yes (reading glasses) Meds Allergies Allergy/AdvReac Type Severity Reaction Status Date / Time bee pollen [bees] Allergy Severe Anaphylaxis Verified 04/08/24 09:56 prochlorperazine Allergy Severe SEIZURES Verified 12/18/23 11:11 [From COMPAZINE] Active Medications: Current Medications Lactated Ringer's (Lr) 1,000 mls @ 100 mls/hr IVCONT .Q10H ADALGISA Last Admin: 04/09/24 08:45 Dose: 100 mls/hr Exam Height,Weight and Vital Signs: Height 5 ft 1 in Weight 68.7 kg Last Vital Signs Temp 97.8 F 04/09/24 08:17 Pulse 109 H 04/09/24 08:17 Resp 20 04/09/24 08:17 BP 135/91 H 04/09/24 08:17 Pulse Ox 95 04/09/24 08:17 O2 Del Method Room Air 04/09/24 08:17 Airway Mallampati Class: II TM Dist: >3cm Neck ROM: Full Heart: RRR Lungs: CTA Assessment and Plan Assessment Anesthesia Assessment: Anesthesia Plan Discussed and Chart Reviewed Final Anesthetic Review Family History of Problems with Anesthesia: No History of Problems with Anesthesia: No NPO: Yes ASA Class: II Final Preanesthetic Review: Meds/Allgs Chart Reviewed, Consent Obtained/Reviewed and Anes Risks/Benef Reviewed Patient Risk: Low Procedure Risk: Low Anesthetic Plan Anesthetic Plan: MAC: Disposition: Standard PACU
--- NOTE | 2024-04-09 09:56 | P.OPN-COLO_ITS ---
Colonoscopy Operative Note Operative Note Date of Service: 04/09/24 Narrative: Operative Information Procedure Description: EGD, Colonoscopy Indication: diarrhea Anesthesia: MAC FLEXIBLE TRANSORAL UPPER GASTROINTESTINAL ENDOSCOPY AND COLONOSCOPY PROCEDURE NOTE UPPER ENDOSCOPY Consent: Indications for the procedure and potential complications of bleeding, perforation, reaction to medications and missed diagnosis were discussed with the patient and informed consent was obtained. Instrument: Olympus GIF H 190 J mid size upper endoscope Monitoring: Vital signs and clinical assessment, continuous EKG monitoring, Pulse oximetry, Carbon Dioxide monitoring and blood pressure monitoring were done throughout the procedure. Procedure: The patient was placed in the left lateral decubitis position and pre-procedure medications were administered and a bite block was placed. The endoscope was inserted into the mouth and advanced under direct vision to the third part of duodenum. A careful inspection was made as the upper endoscope was withdrawn including a retroflexed examination of the proximal stomach; Findings and interventions are described below. Findings: Larynx:normal Esophagus: GE junction at 35 cm, diaphragm hiatus at 37 cm, consistent with 2 cm sliding hiatal hernia, schatzki ring noted with surrounding esophagitis -bx taken from GEJ, distal and proximal Stomach: Normal mucosa. Biopsies were obtained. Grade 2 flap valve on retroflexed examination of the cardia. Duodenum: Normal bulb and descending duodenum, bx taken Intervention: Biopsies as noted above, COLONOSCOPY Instrument: Olympus variable stiffness pediatric scope 190L Colonoscopy Monitoring: Vital signs and clinical assessment, continuous EKG monitoring, Pulse oximetry, Carbon Dioxide monitoring and blood pressure monitoring were done throughout the procedure. Colon withdrawal time was 14 minutes. Procedure: The patient was placed in the left lateral decubitis position and pre-procedure medications were administered. After a digital rectal examination of the ano-rectum, the video colonoscope was inserted into the rectum and advanced through the colon to the cecum/TI. The colonoscope was slowly withdrawn in a retrograde panoramic fashion and the colon mucosa was carefully examined including a retroflexed view of the rectum. Findings and interventions are described below. Procedure Difficulty:moderate Findings: Terminal Ileum- superficially intubated nml cold forceps bx taken from right and left colon Cecum: 4-5 mm sessile polyp removed with cold forceps Ascending Colon: normal Transverse Colon -normal Descending Colon:normal Sigmoid Colon: normal Rectum: Retroflexion with small internal hemorrhoids, grade I Anorectum - normal Colon preparation: [place] Bowel Preparation Scale Right colon; 2 Transverse colon: 2 Left colon; 2 (0 = Unprepared colon segment with mucosa not seen due to solid stool that cannot be cleared. 1 = Portion of mucosa of the colon segment seen, but other areas of the colon se gment not well seen due to staining, residual stool and/or opaque liquid. 2 = Minor amount of residual staining, small fragments of stool and/or opaque liquid, but mucosa of colon segment seen well. 3 = Entire mucosa of colon segment seen well with no residual staining, small fragments of stool or opaque liquid) Impression and Post Procedure Diagnosis: Endoscopy Findings: schatzki ring hiatal hernia esophagitis Colonoscopy Findings: colon polyp internal hemorrhoids Plan: Await Pathology results Repeat Colonoscopy in 5 years due to adenomatous appearing polyp or earlier if clinically indicated High fiber diet leaflet avoid straining at stool, epsom salts and sitz bath, anusol supps or cream consider PPI Above findings were reviewed with the patient and relevant handouts were provided if indicated.
[2024-04-09 10:02] VITALS: BP 119/75; PULSE 95; RESP 16; TEMP 36.3; O2SAT 96
[2024-04-09 10:17] VITALS: BP 148/88; PULSE 95; RESP 16; O2SAT 99
--- NOTE | 2024-04-09 10:29 | HO.POSTANES ---
Post Anesthesia Evaluation Post Anesthesia Evaluation Date of Service: 04/09/24 Vital Signs: Vital Signs Temp Pulse Resp BP Pulse Ox O2 Del Method 04/09/24 10:17 95 16 148/88 H 99 Room Air 04/09/24 10:02 97.4 F 95 16 119/75 96 Room Air 04/09/24 08:17 97.8 F 109 H 20 135/91 H 95 Room Air Anesthesia: Monitored Mental Status: Awake Pain Control: Satisfactory Nausea/Vomiting: None Hydration: Adequate Anesthesia-Related Issues: No Anes. Related Issues
== END 2024-04-09 11:21 | disposition home or self-care (01) ==
PROVIDERS: PCP Internal Medicine; Visit Provider Internal Medicine Gastroenterology
PROC: (CPT 45380; principal; 2024-04-09 09:20)
DX: K52.9 Noninfective gastroenteritis and colitis, unspecified (principal); Z86.0101 Personal history of adenomatous and serrated colon polyps; D12.0 Benign neoplasm of cecum; K64.0 First degree hemorrhoids; E46 Unspecified protein-calorie malnutrition; D47.2 Monoclonal gammopathy; K20.80 Other esophagitis without bleeding; K22.2 Esophageal obstruction; K44.9 Diaphragmatic hernia without obstruction or gangrene; K21.9 Gastro-esophageal reflux disease without esophagitis; E78.00 Pure hypercholesterolemia, unspecified; E55.9 Vitamin D deficiency, unspecified; E53.8 Deficiency of other specified B group vitamins; M79.7 Fibromyalgia; G57.91 Unspecified mononeuropathy of right lower limb; E66.3 Overweight; Z68.28 Body mass index [BMI] 28.0-28.9, adult; L40.9 Psoriasis, unspecified; Z90.49 Acquired absence of other specified parts of digestive tract; Z98.890 Other specified postprocedural states; Z88.8 Allergy status to other drugs, medicaments and biological substances; Z87.891 Personal history of nicotine dependence
CPT/HCPCS: 45380; 43239; 88305; 88313; 88342; J2003; J2704

== ENCOUNTER → 2024-04-09 07:54 | Outpatient (BNV) | payer MEDICARE, SELFPAY | PROVIDERS: PCP Internal Medicine; Visit Provider Internal Medicine Gastroenterology | DX: R19.7 Diarrhea, unspecified (principal); D12.0 Benign neoplasm of cecum; K64.0 First degree hemorrhoids; K22.2 Esophageal obstruction; K20.90 Esophagitis, unspecified without bleeding | CPT/HCPCS: 43239; 45380 ==

== ENCOUNTER 2024-04-21 08:54 | Outpatient (AMB) | payer MEDICARE, SELFPAY ==
[2024-04-21 09:05] VITALS: BP 132/70; PULSE 75; BMI 28.7
--- NOTE | 2024-04-21 09:05 | MHC.OFFVIS ---
Vital Signs 04/21/24 09:05 Height 5 ft 1 in Weight 152 lb 1.903 oz BMI 28.7 BP 132/70 Blood Pressure Location Lt brachial Position Sitting Pulse 75 Intake Visit Reasons: Diarrhea Intake Note: Franca presents in the office as a diarrhea follow up. CC: states that she is still having diarrhea - just started on meds again the other day. 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 Allergies bee pollen [bees] Allergy (Severe, Verified 04/21/24 09:05) Anaphylaxis prochlorperazine [From COMPAZINE] Allergy (Severe, Verified 04/21/24 09:05) SEIZURES HPI HPI Diarrhea: Details: 68-year-old female being seen for f/u RECAP: Had long standing issues with diarrhea going on for 20 yrs at least she did have some good response with colesevelam which had reduced the severity but not taken it away she had bloating and ruq pain and discomfort TESTS celiac serology nml TSH nml CBC nml, eos nml neg GI hormone panel fecal colleen - neg EGD/colonoscopy: 2021 tubular adenomas x 2, chronic duodenitis, neg TI and colon bx CTe: neg for inflammation 04/09/24 Endoscopy Findings: schatzki ring hiatal hernia esophagitis Colonoscopy Findings: colon polyp internal hemorrhoids path: active esophagitis, tubular adenoma'regular bx are neg INTERIM: she tried rifaxmin but no benefit she tried cholestyramine but was hard for her to tolerate she does admit to swallowing issues now--just started PPI she feels her diarrhea has been ongoing has ongoing itching, waiting to see a enamel drier EXAM: GENERAL: The patient is well developed and nontoxic. VITAL SIGNS:see workflow HEENT: Nonicteric sclerae, PERRLA, EOMI. Oropharynx clear. Moist mucous membranes. Conjunctivae appear well perfused. No thyroid mass. CHEST: Chest wall is nontender. HEART: Regular rate and rhythm without murmurs. LUNGS: Clear to auscultation bilaterally. ABDOMEN: Soft, positive bowel sounds, nontender, no organomegaly.no flank tenderness SKIN: No rash, no excessive bruising, petechiae, or purpura. NEUROLOGIC: Cranial nerves II-XII intact without motor/sensory deficit. Psych: normal affect A/P: 1/ chronic diarrhea, abdominal pain, uncertain etiology bx neg for microscopic colitis, ddx: small bowel enteropathy, SIBO, CHO intolerance, gluten intolerance, food allergy--but multiple tests incl RAST, CT e and endoscopies with bx are negative PLAN: 1/ cont with PPI 2./ add panc supplement 3/ might add mesalamine or ursodiol 4/ can cont with imodium, maybe lomotil 5/ panc elastase, and strongyloides PFSH Medical History Palpitations GERD (gastroesophageal reflux disease) Folate deficiency Vitamin B12 deficiency Vitamin D deficiency Arthritis Overweight (BMI 25.0-29.9) Anxiety Pure hypercholesterolemia MGUS (monoclonal gammopathy of unknown significance) Fibromyalgia Neuropathy of right lower extremity Psoriasis Surgical History History of esophagogastroduodenoscopy (EGD) History of colonoscopy History of removal of cyst Status post cryoablation History of bowel resection History of tonsillectomy Family History Father Mother Bladder cancer Arthritis Sister Breast cancer Sister Breast cancer Maternal Aunt Breast cancer Social History Housing: House Alcohol intake: never Patient Tobacco Use Status: Former Tobacco user Tobacco use type: Cigarette e-Cigarette/Vaping Use: Never Used Second Hand Smoke Exposure: No service: No Current occupational status: employed Cognitive needs: No Hearing needs: No Vision needs: Yes (reading glasses) Physical Exam Vital Signs: Last Vital Signs Pulse 75 04/21/24 09:05 BP 132/70 04/21/24 09:05 BMI result Body Mass Index 28.7 Assessment & Plan Assessment & Plan (1) Diarrhea: Code(s): R19.7 - Diarrhea, unspecified Category: Medical Plan: as above Orders: Orders Pancreatic Elastase-1 Today R19.7 - Diarrhea, unspecified Strongyloides Antibody IgG Today R19.7 - Diarrhea, unspecified Medications: New [id number]-[id number] 24,000-76,000 -120,000 unit (Creon) administer with meals and/or snacks 2 caps PO TID 240 caps 0RF Coding Level of Care Code Est Pt Level 4 (72684) Diagnoses Diarrhea R19.7
== END 2024-04-21 09:28 | disposition home or self-care (01) ==
PROVIDERS: PCP Internal Medicine; Visit Provider Internal Medicine Gastroenterology
DX: R19.7 Diarrhea, unspecified (principal)
CPT/HCPCS: 99214

== ENCOUNTER 2024-04-21 08:54 | Outpatient (REF) | payer MEDICARE, SELFPAY ==
[2024-04-21 11:50] LABS: Ferritin 48 ng/mL (10-250)
[2024-04-21 12:09] LABS: C Reactive Protein 0.83 mg/dL (< or = 0.50)
[2024-04-21 12:17] LABS: Folate 15.3 ng/mL (> or = 4.0); Vitamin B12 379 pg/mL (200-900)
[2024-04-22 21:48] LABS: Immunoglobulin E 89 kU/L (<OR=114)
[2024-04-23 23:03] LABS: Zinc 90 mcg/dL (60-130)
[2024-04-24 17:59] LABS: Strongyloides Antibody IgG NEGATIVE
[2024-04-24 23:53] LABS: Alpha-Tocopherol 18.9 mg/L (5.7-19.9)
[2024-04-25 16:48] LABS: Vitamin B6 19.6 ng/mL (2.1-21.7)
[2024-04-25 20:13] LABS: Vitamin K1 267 pg/mL (130-1500)
[2024-04-25 23:58] LABS: Vitamin A 48 mcg/dL (38-98)
[2024-04-27 08:24] LABS: Nicotinamide <20 ng/mL (see note); Vit B3 - Nicotinic Acid <20 ng/mL (see note); Vitamin B5 (Pantothenic Acid) 99 ng/mL (<275)
[2024-05-02 00:33] LABS: Vitamin B1 22 nmol/L (8-30)
== END 2024-04-21 08:55 | disposition home or self-care (01) ==
LOC: HO.LAB 08:54
PROVIDERS: PCP Internal Medicine; Visit Provider Internal Medicine Gastroenterology
DX: K52.9 Noninfective gastroenteritis and colitis, unspecified (principal); E46 Unspecified protein-calorie malnutrition
CPT/HCPCS: 36415; 82607; 82728; 82746; 82785; 84207; 84425; 84446; 84590; 84591; 84597; 84630; 86140; 86682; 99212

== ENCOUNTER 2024-04-30 11:46 | Outpatient (REF) | payer MEDICARE, SELFPAY ==
[2024-05-04 20:14] LABS: Fecal Fat Qualitative Normal (Normal)
[2024-05-06 19:43] LABS: Pancreatic Elastase-1 >800 mcg/g (>200)
== END 2024-04-30 11:47 | disposition home or self-care (01) ==
LOC: HO.LNP 11:46
PROVIDERS: Visit Provider Internal Medicine Gastroenterology
DX: K52.9 Noninfective gastroenteritis and colitis, unspecified (principal); E46 Unspecified protein-calorie malnutrition
CPT/HCPCS: 82656; 82705; 87329

== ENCOUNTER 2024-08-11 09:24 | Outpatient (AMB) | payer MEDICARE, SELFPAY ==
--- NOTE | 2024-08-11 09:26 | MHC.OFFVIS ---
Vital Signs 08/11/24 09:32 Height 5 ft 1 in Weight 152 lb 1.903 oz BMI 28.7 BP 151/66 H Blood Pressure Location Lt brachial Position Sitting Pulse 72 Intake Visit Reasons: 4 month follow up Intake Note: Franca presents in the office as a 4 month follow up. CC: She states that she has no concerns and everything has been really good. 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 Allergies bee pollen [bees] Allergy (Severe, Verified 08/11/24 09:28) Anaphylaxis prochlorperazine [From COMPAZINE] Allergy (Severe, Verified 08/11/24 09:28) SEIZURES HPI HPI 4 month follow up: Details: 69-year-old female being seen for f/u RECAP: Had long standing issues with diarrhea going on for 20 yrs at least she did have some good response with colesevelam which had reduced the severity but not taken it away she had bloating and ruq pain and discomfort TESTS celiac serology nml TSH nml CBC nml, eos nml neg GI hormone panel fecal colleen - neg fecal elastase- nml strongyloides- negative EGD/colonoscopy: 2021 tubular adenomas x 2, chronic duodenitis, neg TI and colon bx CTe: neg for inflammation 04/09/24 Endoscopy Findings: schatzki ring hiatal hernia esophagitis Colonoscopy Findings: colon polyp internal hemorrhoids path: active esophagitis, tubular adenoma'regular bx are neg INTERIM: she decided to take 2 imodium daily and her diarrhea has stopped she is v happy with this no abdominal pain she is also taking ashwagndha which helps with her mental health she still has some issues with swallowing - stopped PPI, only taking famotidine --PI expensive and not xonvinced about it helping she never tried creon as too expensive taking coleveselam once at night EXAM: GENERAL: The patient is well developed and nontoxic. VITAL SIGNS:see workflow HEENT: Nonicteric sclerae, PERRLA, EOMI. Oropharynx clear. Moist mucous membranes. Conjunctivae appear well perfused. No thyroid mass. CHEST: Chest wall is nontender. HEART: Regular rate and rhythm without murmurs. LUNGS: Clear to auscultation bilaterally. ABDOMEN: Soft, positive bowel sounds, nontender, no organomegaly.no flank tenderness SKIN: No rash, no excessive bruising, petechiae, or purpura. NEUROLOGIC: Cranial nerves II-XII intact without motor/sensory deficit. Psych: normal affect A/P: 1/ chronic diarrhea, abdominal pain, uncertain etiology bx neg for microscopic colitis, ddx: small bowel enteropathy, SIBO, CHO intolerance, gluten intolerance, food allergy--but multiple tests incl RAST, CT e and endoscopies with bx are negative--improved now with imodium 2/ intermittent dysphagia--prob from esophagitis, PLAN: 1/ try high dose famotidine and see if helps 2./ cont with imodium meantime 3/ EGD with possible dilation and bx again PFSH Medical History Palpitations GERD (gastroesophageal reflux disease) Folate deficiency Vitamin B12 deficiency Vitamin D deficiency Arthritis Overweight (BMI 25.0-29.9) Anxiety Pure hypercholesterolemia MGUS (monoclonal gammopathy of unknown significance) Fibromyalgia Neuropathy of right lower extremity Psoriasis Surgical History History of esophagogastroduodenoscopy (EGD) History of colonoscopy History of removal of cyst Status post cryoablation History of bowel resection History of tonsillectomy Family History Father Mother Bladder cancer Arthritis Sister Breast cancer Sister Breast cancer Maternal Aunt Breast cancer Social History Housing: House Alcohol intake: never Patient Tobacco Use Status: Former Tobacco user Tobacco use type: Cigarette e-Cigarette/Vaping Use: Never Used Second Hand Smoke Exposure: No service: No Current occupational status: employed Cognitive needs: No Hearing needs: No Vision needs: Yes (reading glasses) Physical Exam Vital Signs: Last Vital Signs Pulse 72 08/11/24 09:32 BP 151/66 H 08/11/24 09:32 BMI result Body Mass Index 28.7 Assessment & Plan Assessment & Plan (1) Chronic diarrhea: Code(s): K52.9 - Noninfective gastroenteritis and colitis, unspecified Category: Medical Plan: as above Medications: Changed From famotidine (Pepcid) 40 mg PO BEDTIME 90 days PRN 90 tabs 1RF heartburns To famotidine (Pepcid) 80 mg (2 x 40 mg) PO BID 90 days 300 tabs 2RF heartburns Discontinued atorvastatin Discontinued Reason: Patient no longer taking 10 mg PO BEDTIME 90 days 90 tabs 1RF amlodipine Discontinued Reason: Patient no longer taking 5 mg PO DAILY 90 days 90 tabs 1RF uvxhvk-amqtidmt-xyrrfro 24,000-76,000 -120,000 unit (Creon) administer with meals and/or snacks Discontinued Reason: Patient Refused 2 caps PO TID 240 caps 0RF Coding Level of Care Code Est Pt Level 3 (22887) Diagnoses Chronic diarrhea K52.9
[2024-08-11 09:32] VITALS: BP 151/66; PULSE 72; BMI 28.7
== END 2024-08-11 09:44 | disposition home or self-care (01) ==
LOC: HO.HGI 09:25
PROVIDERS: Visit Provider Internal Medicine Gastroenterology
DX: K52.9 Noninfective gastroenteritis and colitis, unspecified (principal)
CPT/HCPCS: 99213

== ENCOUNTER → 2024-08-11 09:24 | Outpatient (BNVA) | payer MEDICARE, SELFPAY | PROVIDERS: Visit Provider Internal Medicine Gastroenterology | DX: K52.9 Noninfective gastroenteritis and colitis, unspecified (principal) | CPT/HCPCS: 99212 ==

== ENCOUNTER 2024-12-09 07:18 | Outpatient (REF) | payer MEDICARE, SELFPAY ==
[2024-12-09 07:44] LABS: MANUAL DIFF FLAG NO
[2024-12-09 08:25] LABS: Appearance Urine Clear; Glucose Urine UA Negative (Negative); PH 5.5 (5.0-9.0); Specific Gravity - Urine 1.025 (1.005-1.025)
[2024-12-09 08:30] LABS: Hematocrit 39.8 % (37.0-47.0); Hemoglobin 13.3 g/dl (12.0-16.0); Imm Gran Abs Auto 0.02 X10*3/uL (0.00-0.03); Imm Gran Pct Auto 0.3 % (0.0-0.4); Lymphocytes Absolute Auto 2.0 X10*3/uL (1.2-4.9); Mean Corpuscular HGB Conc 33.4 g/dl (31.0-35.0); Mean Corpuscular Hemoglobin 30.5 pg (27.0-33.0); Mean Corpuscular Volume 91.3 fL (80.0-98.0); NRBC Abs Auto 0.000 X10*3/uL (0.0-0.012); NRBC Pct Auto 0.0 /100WBC (0.0-0.2); Platelet Count 333 X10*3/uL (160-400); Red Blood Count 4.36 X10*6/uL (4.20-5.50); White Blood Count 6.6 X10*3/uL (4.8-10.8)
[2024-12-09 08:34] LABS: Fibrinogen 491 MG/DL (259-690); INTERNATIONAL NORM RATIO 0.9 (0.9-1.1); Prothrombin Time 10.2 SEC (10.9-12.4)
[2024-12-09 08:36] LABS: Partial Thromboplastin Time 27.9 SEC (26.7-34.1)
[2024-12-09 09:06] LABS: Hemoglobin A1C 122.9868 umol/L; Total Hemoglobin (HGBA1C) 3360.4987 umol/L
[2024-12-09 09:16] LABS: Alanine Aminotransferase 18 U/L (0-31); Albumin Level 4.2 g/dL (3.5-5.0); Alkaline Phosphatase 107 U/L (39-117); Anion Gap 12 (12-20); Aspartate Amino Transferase 19 U/L (5-31); Blood Urea Nitrogen 10 mg/dL (9-16); Calcium 9.0 mg/dL (8.4-10.2); Carbon Dioxide 23 mmol/L (22-29); Chloride 110 mmol/L (96-108); Cholesterol 244 mg/dL (<200); Estimated Glomerular Filt Rate > 60; HDL Cholesterol 55 mg/dL (>40); Potassium 4.2 mmol/L (3.3-5.1); Sodium 141 mmol/L (135-145); Total Protein 7.0 g/dL (6.5-8.0); Triglycerides 170 mg/dL (<150)
[2024-12-09 09:30] LABS: Folate 3.9 ng/mL (> or = 4.0); Vitamin B12 230 pg/mL (200-900)
[2024-12-09 10:03] LABS: Free T4 (Free Thyroxine) 0.76 ng/dL (0.71-1.85)
== END 2024-12-09 07:19 | disposition home or self-care (01) ==
LOC: HO.LAB 07:18
PROVIDERS: PCP Internal Medicine; Visit Provider Internal Medicine
DX: E53.8 Deficiency of other specified B group vitamins (principal); R73.01 Impaired fasting glucose; R30.0 Dysuria; E78.00 Pure hypercholesterolemia, unspecified; D69.9 Hemorrhagic condition, unspecified; D64.9 Anemia, unspecified; D68.00 Von Willebrand disease, unspecified; E55.9 Vitamin D deficiency, unspecified; Z79.01 Long term (current) use of anticoagulants
CPT/HCPCS: 36415; 80053; 80061; 81003; 81241; 82306; 82607; 82746; 83036; 84439; 84443; 85025; 85246; 85384; 85610; 85730

== ENCOUNTER 2024-12-11 08:55 | Day surgery (SDC) | payer MEDICARE, SELFPAY ==
--- NOTE | 2024-12-09 12:21 | HO.ANESPROP2 ---
Documented by User: Jane Car NP 12/09/24 12:35 HPI - Anesthesia Eval Consult details Narrative: 69yo F for Upper Endoscopy PMFSH Active Problems Active Problems: All Active Problems Bleeds easily (Acute) Malnutrition (Acute) Impaired fasting glucose (Acute) Syncopal episodes (Acute) Acute lumbar myofascial strain (Acute) Bilateral thumb pain (Acute) Cough (Acute) COVID-19 (Acute) Viral upper respiratory illness (Acute) Diarrhea (Acute) Anaphylactic reaction (Acute) Environmental and seasonal allergies (Acute) Systemic mastocytosis (Acute) Tubular adenoma (Acute) Acid reflux (Acute) Cardiac abnormality (Acute) Chronic diarrhea (Acute) SOB (shortness of breath) (Acute) Precordial chest pain (Acute) Essential hypertension (Acute) Frequent diarrhea (Acute) Palpitations (Acute) GERD (gastroesophageal reflux disease) (Acute) Folate deficiency (Acute) Vitamin B12 deficiency (Acute) Vitamin D deficiency (Acute) Arthritis (Acute) Overweight (BMI 25.0-29.9) (Acute) Anxiety (Acute) Pure hypercholesterolemia (Acute) Psoriasis (Acute) Past Medical History Medical History Palpitations GERD (gastroesophageal reflux disease) Folate deficiency Vitamin B12 deficiency Vitamin D deficiency Arthritis Overweight (BMI 25.0-29.9) Anxiety Pure hypercholesterolemia MGUS (monoclonal gammopathy of unknown significance) Fibromyalgia Neuropathy of right lower extremity Psoriasis Family History Family History Father Mother Bladder cancer Arthritis Sister Breast cancer Sister Breast cancer Maternal Aunt Breast cancer Family history of problems with anesthesia: No Surgical History Surgical History History of esophagogastroduodenoscopy (EGD) History of colonoscopy History of removal of cyst Status post cryoablation History of bowel resection History of tonsillectomy History of Problems with Anesthesia: No Social History Social History Housing: House Alcohol intake: never Patient Tobacco Use Status: Former Tobacco user Tobacco use type: Cigarette e-Cigarette/Vaping Use: Never Used Second Hand Smoke Exposure: No Use of substances other than those prescribed or required for medical reasons: No Advance Directives: No Advance Directives Information Provided: Yes service: No Current occupational status: employed Cognitive needs: No Hearing needs: No Vision needs: Yes (reading glasses) Meds Allergies Allergy/AdvReac Type Severity Reaction Status Date / Time bee pollen (bees) Allergy Severe Anaphylaxis Verified 08/11/24 09:28 prochlorperazine (From Allergy Severe SEIZURES Verified 08/11/24 09:28 COMPAZINE) Home Medications ?Medication ?Instructions ?Recorded ?Confirmed ?Last Taken ?Type albuterol sulfate 90 mcg/actuation 2 puff inhalation Q6H PRN 12/09/24 12/09/24 Unknown History aerosol inhaler Shortness Of Breath Or Wheezing Assessment and Plan Assessment Anesthesia Assessment: Chart Reviewed Final Anesthetic Review Family History of Problems with Anesthesia: No History of Problems with Anesthesia: No Documented by User: Ysabel Craig MD 12/11/24 10:48 [facility] Past Medical History Medical History Palpitations GERD (gastroesophageal reflux disease) Folate deficiency Vitamin B12 deficiency Vitamin D deficiency Arthritis Overweight (BMI 25.0-29.9) Anxiety Pure hypercholesterolemia MGUS (monoclonal gammopathy of unknown significance) Fibromyalgia Neuropathy of right lower extremity Psoriasis Family History Family History Father Mother Bladder cancer Arthritis Sister Breast cancer Sister Breast cancer Maternal Aunt Breast cancer Surgical History Surgical History History of esophagogastroduodenoscopy (EGD) History of colonoscopy History of removal of cyst Status post cryoablation History of bowel resection History of tonsillectomy Social History Social History Housing: House Alcohol intake: never Patient Tobacco Use Status: Former Tobacco user Tobacco use type: Cigarette e-Cigarette/Vaping Use: Never Used Second Hand Smoke Exposure: No Use of substances other than those prescribed or required for medical reasons: No Advance Directives: No Advance Directives Information Provided: Yes service: No Current occupational status: employed Cognitive needs: No Hearing needs: No Vision needs: Yes (reading glasses) Meds Allergies Allergy/AdvReac Type Severity Reaction Status Date / Time bee pollen (bees) Allergy Severe Anaphylaxis Verified 08/11/24 09:28 prochlorperazine (From Allergy Severe SEIZURES Verified 08/11/24 09:28 COMPAZINE) Home Medications ?Medication ?Instructions ?Recorded ?Confirmed ?Last Taken ?Type albuterol sulfate 90 mcg/actuation 2 puff inhalation Q6H PRN 12/09/24 12/09/24 Unknown History aerosol inhaler Shortness Of Breath Or Wheezing Exam Airway Mallampati Class: II TM Dist: >3cm Neck ROM: Full Heart: rrr Lungs: cta Assessment and Plan Assessment Anesthesia Assessment: Anesthesia Plan Discussed Final Anesthetic Review NPO: Yes ASA Class: III Final Preanesthetic Review: No Changes in Pt Med Stat, Meds/Allgs Chart Reviewed, Consent Obtained/Reviewed and Anes Risks/Benef Reviewed Patient Risk: Intermediate Procedure Risk: Low Anesthetic Plan Anesthetic Plan: MAC: Disposition: Standard PACU
[2024-12-09 14:08] VITALS: BMI 28.7
[2024-12-11 09:30] VITALS: BMI 28.2
[2024-12-11 09:43] VITALS: BP 159/75; PULSE 68; RESP 16; TEMP 36.2; O2SAT 98
[2024-12-11] MEDS: Lactated Ringers 1,000 ML 100 ML IVCONT (09:44)
--- NOTE | 2024-12-11 10:20 | MHC.SHP ---
Pre-Procedural Eval Section A - 24 Hr Update-Section A only Date of Service: 12/11/24 Section B - Complete if H&P > 30 days Chief Complaint: Dysphagia, unspecified Relevant Family History (Specify if Yes): No Relevant Social History: None Present Medications: see Short Stay Collaborative assessment Medical History: Significant History (Palpitations GERD (gastroesophageal reflux disease) Folate deficiency Vitamin B12 deficiency Vitamin D deficiency Arthritis Overweight (BMI 25.0-29.9) Anxiety Pure hypercholesterolemia MGUS (monoclonal gammopathy of unknown significance) Fibromyalgia Neuropathy of right lower extremity Psoriasis) History of Previous Operations: Relevant previous surgery/procedure and date(s) ( History of esophagogastroduodenoscopy (EGD) History of colonoscopy History of removal of cyst Status post cryoablation History of bowel resection History of tonsillectomy) Allergies: Allergies Allergy/AdvReac Type Severity Reaction Status Date / Time bee pollen (bees) Allergy Severe Anaphylaxis Verified 08/11/24 09:28 prochlorperazine (From Allergy Severe SEIZURES Verified 08/11/24 09:28 COMPAZINE) Review of Systems Sugical H&P ROS: Negative: Constitution, Cardiovascular, Respiratory, Neurological, Psychiatric, Hem-Onc, Allergic/Immunologic, Gastrointestinal, Genitourinary, Musculoskeletal, Integumentary, Endocrine and Eyes/Ears/Nose/Throat Exam Surgical H&P Exam: Normal: HEENT, Normal: Heart, Normal: Lungs, Normal: Extremities, Normal: Abdomen, Normal: Skin and Normal: Neurological Plan Diagnosis/Plan: Unchanged I have reviewed the history and physical and performed a pertinent physical examination on my patient. No changes have occurred unless specified. Time Spent With Patient Time: Total time managing care of this patient today ____ minutes.
--- NOTE | 2024-12-11 10:39 | W.PM.OPN ---
Operative Note Operative Note Date of Service: 12/11/24 Narrative: Procedure Description: EGD Indication: dysphagia and bloating Anesthesia: MAC FLEXIBLE TRANSORAL UPPER GASTROINTESTINAL ENDOSCOPY UPPER ENDOSCOPY Consent: Indications for the procedure and potential complications of bleeding, perforation, reaction to medications and missed diagnosis were discussed with the patient and informed consent was obtained. Instrument: Olympus GIF H 190 J mid size upper endoscope Monitoring: Vital signs and clinical assessment, continuous EKG monitoring, Pulse oximetry, Carbon Dioxide monitoring and blood pressure monitoring were done throughout the procedure. Procedure: The patient was placed in the left lateral decubitis position and pre-procedure medications were administered and a bite block was placed. The endoscope was inserted into the mouth and advanced under direct vision to the third part of duodenum. A careful inspection was made as the upper endoscope was withdrawn including a retroflexed examination of the proximal stomach; Findings and interventions are described below. Findings: Larynx:normal Esophagus: GE junction at 37 cm, diaphragm hiatus at 37 cm, mild esophagitis at GEJ, bx taken, baloon dilation at LES and UES, to 19 mm, with small superficial tear noted at UES Stomach: patchy erythema . Biopsies were obtained. Grade 2 flap valve on retroflexed examination of the cardia. Duodenum: Normal bulb and descending duodenum, bx taken also for disaccharidases Intervention: Biopsies as noted above, balloon dilation Impression/Findings: gastritis esophagitis esophageal stricture PLAN: can take tylenol as needed magic mouthwash GERD precautions
[2024-12-11 10:45] VITALS: BP 124/63; PULSE 80; RESP 12; TEMP 36.1; O2SAT 97
[2024-12-11 11:00] VITALS: BP 126/70; PULSE 70; RESP 14; TEMP 36.1; O2SAT 96
[2024-12-11] MEDS: Mag&Al/Sim/Diphenhyd/Lidocaine 10 ML ORAL.SUSP PO (11:31)
[2024-12-17 04:28] LABS: Lactase 18.8 (15.0-45.5); Maltase 163.5 (100.0-224.4); Palatinase 17.1 (5.0-26.3); Sucrase 49.1 (25.0-69.9)
== END 2024-12-11 11:59 | disposition home or self-care (01) ==
PROVIDERS: PCP Internal Medicine; Visit Provider Internal Medicine Gastroenterology
PROC: 0DJ08ZZ Inspection of Upper Intestinal Tract, Via Natural or Artificial Opening Endoscopic (ICD-10-PCS; CPT 43235; principal; 2024-12-11 11:40)
DX: R13.10 Dysphagia, unspecified (principal); R14.0 Abdominal distension (gaseous); K22.2 Esophageal obstruction; K20.80 Other esophagitis without bleeding; K29.70 Gastritis, unspecified, without bleeding; K52.9 Noninfective gastroenteritis and colitis, unspecified; K21.9 Gastro-esophageal reflux disease without esophagitis; K44.9 Diaphragmatic hernia without obstruction or gangrene; D47.2 Monoclonal gammopathy; M79.7 Fibromyalgia; G57.91 Unspecified mononeuropathy of right lower limb; E78.00 Pure hypercholesterolemia, unspecified; Z79.899 Other long term (current) drug therapy; Z88.8 Allergy status to other drugs, medicaments and biological substances; Z98.890 Other specified postprocedural states; Z87.891 Personal history of nicotine dependence
CPT/HCPCS: 43249; 43239; 82657; 88305; 88313; 88342; C1726; J2003; J2704

== ENCOUNTER → 2024-12-11 08:55 | Outpatient (BNV) | payer MEDICARE, SELFPAY | PROVIDERS: PCP Internal Medicine; Visit Provider Internal Medicine Gastroenterology | DX: R13.10 Dysphagia, unspecified (principal); K20.90 Esophagitis, unspecified without bleeding; K22.2 Esophageal obstruction; K29.70 Gastritis, unspecified, without bleeding | CPT/HCPCS: 43239; 43249 ==

== ENCOUNTER 2024-12-15 16:52 | Outpatient (AMB) | payer MEDICARE, SELFPAY ==
[2024-12-15 16:54] VITALS: BP 142/84; PULSE 86; O2SAT 96; BMI 27.4
--- NOTE | 2024-12-15 16:54 | MHC.PC.OV ---
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 Accompanied by: Self / Same As Patient Allergies bee pollen (bees) Allergy (Severe, Verified 12/15/24 21:23) Anaphylaxis prochlorperazine (From COMPAZINE) Allergy (Severe, Verified 12/15/24 21:23) SEIZURES Medication List - Last Reconciled 12/15/24 by Fran Chua MD albuterol sulfate 90 mcg/actuation 2 puffs inhalation Q6H PRN amlodipine 5 mg PO DAILY 90 days atorvastatin 10 mg PO BEDTIME 90 days baclofen 20 mg PO TID PRN 10 days colesevelam 1,250 mg (2 x 625 mg) PO BID 90 days cromolyn 200 mg (10 mL) PO QID 90 days epinephrine (EpiPen 2-Kai) 0.3 mg (0.3 mL) IM Q10M PRN esomeprazole magnesium 40 mg PO DAILY famotidine (Pepcid) 80 mg (2 x 40 mg) PO BID 90 days fluticasone propionate 50 mcg/actuation (Flonase Allergy Relief) 1 spray intranasal Q12H PRN 30 days loratadine (Claritin) 10 mg PO DAILY 90 days Magic Mouthwash Diphen/Lido/Antacid 1:1:1 10 mL PO QID [WRIST BRACES (bilateral) As directed] Tobacco use date assessed: 12/15/24 Fall risk assessment: No Falls in past year Last assessed Fall Risk: 12/15/24 Dental Screening Dental Screen Date: 12/15/24 Did you have a dental visit in the last 12 months?: No Did you have a dental problem in the last 6 months where you did not have access to dental care?: No Was dental information given to patient?: No HPI swollen legs HPI Details Patient comes in today for her follow-up visit - she has not been back in almost a year (last seen on 12/18/2023) she states that she ran into some problems with insurance coverage Relates that she was advised when she called up a few months ago to get her prescriptions refilled that I am no longer included in her prescription coverage (?) So patient states that she has not been taking her Atorvastatin and a couple of other medications for a few months now States that she feels okay but reports that she is still experiencing frequent and recurrent tightness and aching in the muscles of her lower legs She denies any headaches or dizziness Denies any chest pains, no increased shortness of breath No nausea/vomiting, no abdominal pain No change in bowel habits noted She had her follow-up labs done last week - to discuss her results [facility] Medical History Palpitations GERD (gastroesophageal reflux disease) Folate deficiency Vitamin B12 deficiency Vitamin D deficiency Arthritis Overweight (BMI 25.0-29.9) Anxiety Pure hypercholesterolemia MGUS (monoclonal gammopathy of unknown significance) Fibromyalgia Neuropathy of right lower extremity Psoriasis Surgical History History of esophagogastroduodenoscopy (EGD) History of colonoscopy History of removal of cyst Status post cryoablation History of bowel resection History of tonsillectomy Family History Father Mother Bladder cancer Arthritis Sister Breast cancer Sister Breast cancer Maternal Aunt Breast cancer Social History Housing: House Alcohol intake: never Patient Tobacco Use Status: Former Tobacco user Tobacco use type: Cigarette e-Cigarette/Vaping Use: Never Used Second Hand Smoke Exposure: No service: No Current occupational status: employed Cognitive needs: No Hearing needs: No Vision needs: Yes (reading glasses) Questionnaire PHQ-9 Over the last 2 weeks, how often have you been bothered by any of the following problems? 1. Little interest or pleasure in doing things: several days 2. Feeling down, depressed, or hopeless: several days 3. Trouble falling or staying asleep, or sleeping too much: several days 4. Feeling tired or having little energy: several days 5. Poor appetite or overeating: several days 6. Feeling bad about yourself - or that you are a failure or have let yourself or your family down: not at all 7. Trouble concentrating on things, such as reading the newspaper or watching television: not at all 8. Moving or speaking so slowly that other people could have noticed. Or the opposite - being so fidgety or restless that you have been moving around a lot more than usual: not at all 9. Thoughts that you would be better off or of hurting yourself in some way: not at all Total score: 5 Depression Screening Interpretation: Positive Depression Screening Follow-up: Follow-up Visit Requested Depression Screening Done: Yes 79022 - PHQ-9 Billing: Yes Source: Developed by Drs. Van Mcqueen, Valorie Pierson, Kendrick Pfeiffer and colleagues, with an educational veto from [employer]. Thrive Questionnaire Date Thrive assessed: 12/15/24 I am a: Patient What is your living situation today?: I have a steady place to live Within the past 12 months, did the food you bought not last and you didn't have the money to get more?: Never true Within the past 12 months, did you worry whether your food would run out before you got money to buy more?: Never true Do you have trouble paying for medicines?: No Do you have trouble getting transportation to medical appointments?: No Do you have trouble paying your heating and electricity bill?: No Do you have trouble taking care of your child, family member or friend?: No Do you have trouble with day-to-day activities such as bathing, preparing meals, shopping, managing finances, etc.?: No Are you currently unemployed and looking for a job?: No Are you interested in more education?: No Please select the resources that you would like help with: None Currently or been in a relationship where the following occur: No concerns reported THRIVE Score: 0 AUDIT C Alcohol Use Questionnaire (AUDIT-C) 1. How often do you have a drink containing alcohol?: Monthly or less 2. How many drinks containing alcohol do you have on a typical day when you are drinking?: 1 or 2 3. How often do you have six or more drinks on one occasion?: Never Total Score: 1 Score Reviewed/Action Taken: Yes YUNI-7 AMB Questionnaire YUNI-7 Date YUNI - 7 assessed: 12/15/24 Feeling nervous, anxious, or on edge: 1 = Several days Not being able to stop or control worryin = Several days Worrying too much about different things: 1 = Several days Trouble relaxin = Not at all Being so restless that it is hard to sit still: 0 = Not at all Becoming easily annoyed or irritable: 0 = Not at all Feeling afraid as if something awful might happen: 1 = Several days Total YUNI-7 score (0-4 normal; 5-9 mild; 10-14 moderate; 15-21 severe): 4 Source: Developed by Drs. Van Mcqueen, Valorie Pierson, Kendrick Pfeiffer and colleagues, with an educational veto from [employer]. Review of Systems Const Denies chills, Reports fatigue, Denies fever(s) and Denies headache(s) ENT Denies dysphagia, Denies dizziness, Denies otalgia, Denies headache(s), Denies neck pain, Denies odynophagia and Denies sore throat Card Denies chest pain, Reports rapid heart rate (at times), Reports palpitations (occasional sensation of palpitations) and Denies dyspnea (but notes some chest tightness when palpitations occur) Resp Denies chest congestion, Denies cough, Denies dyspnea (but notes some chest tightness when palpitations occur) and Denies wheezing GI Denies abdominal pain, Denies constipation, Denies dysphagia, Reports heartburn (occasionally now), Reports diarrhea (often after she eats), Reports loose stools, Denies nausea, Denies odynophagia and Denies vomiting Denies difficulty voiding, Denies nocturia and Denies dysuria Musc Denies back pain, Denies arthralgias and Denies neck pain Skin/Breast Denies rash Neuro Denies dizziness and Denies headache(s) Psych Reports anxiety Endo Reports fatigue and Reports palpitations (occasional sensation of palpitations) Aller/Immun Denies wheezing Physical exam (Primary Care) Vital Signs: Last Vital Signs Pulse 86 12/15/24 16:54 BP 142/84 H 12/15/24 16:54 Pulse Ox 96 12/15/24 16:54 Oxygen Delivery Method Room Air 12/15/24 16:54 BMI result Body Mass Index 27.4 Tobacco/Smoking Status: Tobacco use Status Tobacco use date assessed 12/15/24 12/15/24 16:56 Patient Tobacco Use Status Former Tobacco user 12/15/24 16:56 Tobacco use type Cigarette 12/15/24 16:56 e-Cigarette/Vaping Use Never Used 12/15/24 16:56 PHQ-9: PHQ-9 Score PHQ-9: Total score 5 12/15/24 21:19 Depression Screening Interpretation: Positive Depression Screening Follow-up: Follow-up Visit Requested Thrive Assessment: Date of Thrive Assessment Date Thrive assessed 12/15/24 12/15/24 16:56 Currently or been in a relationship where the following occur: No concerns reported Const General: no acute distress and alert HENMT Ears: TM's normal bilaterally and EAC's normal Throat: Yes posterior oropharynx normal and Yes tonsils normal (no TP congestion noted) Neck Neck: Yes supple and No lymphadenopathy Thyroid: Thyroid normal Resp Auscultation: clear to auscultation bilaterally, no rales and no wheezes Cardio Rate: regular rate Rhythm: regular rhythm Heart sounds: no murmurs GI Palpation (GI): Soft to palpation and nontender Auscultation: normal bowel sounds General: Yes no CVA tenderness Back/Spine/Pelvis Back: no CVA tenderness Thoracic/Lumbar Spine: No lumbar spinal tenderness Skin Rashes: no rashes Extrem General: Yes no clubbing, cyanosis or edema Results Reviewed Results Reviewed: Laboratory Tests 12/09/24 12/09/24 07:33 07:41 WBC 6.6 Hgb 13.3 Hct 39.8 Plt Count 333 Sodium 141 Potassium 4.2 Creatinine 0.75 Estimated GFR > 60 Fasting Glucose 99 Hemoglobin A1c % 5.5 Calcium 9.0 AST 19 ALT 18 Triglycerides 170 H Cholesterol 244 H LDL Cholesterol, Calc 155 H HDL Cholesterol 55 Vitamin B12 230 25-OH Vitamin D Total 28.8 L TSH 4.29 H Free T4 0.76 Ur Specific [place] 1.025 Urine Protein Negative Urine Glucose (UA) Negative Urine Blood Negative Urine Nitrite Negative Ur Leukocyte Esterase Negative Coding Level of Care Code Est Pt Level 4 (78233) Diagnoses Essential hypertension I10 Palpitations R00.2 Syncope, unspecified syncope type R55 Syncope type: unspecified Pure hypercholesterolemia E78.00 Frequent diarrhea R19.7 Psoriasis L40.9 Gastroesophageal reflux disease without esophagitis K21.9 Esophagitis presence: without esophagitis Environmental and seasonal allergies J30.89 Vitamin D deficiency E55.9 Vitamin B12 deficiency E53.8 Folate deficiency E53.8 Bleeds easily D69.9 Anxiety F41.9 Overweight (BMI 25.0-29.9) E66.3 Additional Codes PHQ-9 - 85991 - PHQ-9 Billing: Yes ([id number]) Assessment & Plan Assessment & Plan (1) Essential hypertension: Code(s): I10 - Essential (primary) hypertension Category: Medical Plan: Reinforced low sodium diet - goal is systolic BP of 120 to 130 mm or less Continue Amlodipine 5 mg QD (2) Palpitations: Code(s): R00.2 - Palpitations Category: Medical Plan: Patient's labs and cardiac work ups done over the past couple of years to evaluate her recurrent palpitations have all come back normal and she has been reassured that she does not appear to have any underlying or active heart disease Holter monitor done in February 2021 showed underlying sinus rhythm with minimal heart rate of 45 per minute and maximal at 115 per minute, average is 65 per minute. No atrial fibrillation or flutter or AV blocks or pauses noted. Rare supraventricular ectopy with minimal burden noted Exercise stress test done was equivocal with moderate shortness of breath, dizziness and chest tightness during the procedure. Nuclear imaging came back completely normal Echocardiogram done in February 2021 showed normal LV systolic function with impaired relaxation filling pattern, normal cardiac valvular Doppler, normal RV systolic pressure and no pericardial effusion Follow-up with cardiology as scheduled (3) Syncopal episodes: Code(s): R55 - Syncope and collapse Category: Medical Qualifiers: Syncope type: unspecified Qualified Code(s): R55 - Syncope and collapse Plan: Patient was referred to and seen by Neurology last year and was diagnosed with complex partial seizures She was sent for EEG for further evaluation but unclear if this was ever done as we have no report available of this in her chart A brain MRI done in September 2023 revealed (+) scattered nonspecific nonenhancing white matter T2 hyperintensities in the cerebral hemispheres. MRI is otherwise normal with no mass lesions or abnormal enhancements She used to see Dr. Goodson for neurology follow up but has not been back to see him in a couple of years now - will refer her back to neurology for follow up (4) Pure hypercholesterolemia: Code(s): E78.00 - Pure hypercholesterolemia, unspecified Category: Medical Plan: Results of her labs done last week reviewed and discussed with patient - her cholesterol levels have increased significantly from previous as she has not been able to get her Atorvastatin Rx refilled over the past few months Reinforced low cholesterol diet Will start patient back on Atorvastatin 10 mg QD Continue Colesevelam 1250 mg BID Will recheck her fasting lipids and labs in 6 months for follow up (5) Frequent diarrhea: Code(s): R19.7 - Diarrhea, unspecified Category: Medical Plan: (+)?chronic diarrhea, abdominal pain of uncertain etiology and was Bx neg for microscopic colitis; to consider small bowel enteropathy, SIBO, CHO intolerance, gluten intolerance and food allergy as potential causes Patient reports (+) Hx of bowel resection so this may also have something to do with her diarrhea ( dumping syndrome ) depending on the length of her bowel resected She had EGD and colonoscopy done on 07/14/2021 - (+) tubular adenomas and findings suggestive of systemic mastocytosis She was trialed on Rifaximin unsuccessfully for 2 weeks and is currently on oral Cromolyn and antihistamines as well as Cholestyramine May need MR enterogram if still no significant improvement Follow up with GI as scheduled for continuing management of this issue (6) Psoriasis: Comment: Recent referral to Rheumatology Code(s): L40.9 - Psoriasis, unspecified Category: Medical Plan: Continue Clobetasol propionate 0.05% cream apply to rash BID PRN (7) GERD (gastroesophageal reflux disease): Code(s): K21.9 - Gastro-esophageal reflux disease without esophagitis Category: Medical Qualifiers: Esophagitis presence: without esophagitis Qualified Code(s): K21.9 - Gastro-esophageal reflux disease without esophagitis Plan: Dietary restrictions reinforced Continue Esomeprazole 40 mg QD and Famotidine 80 mg BID PRN Follow up with GI as scheduled (8) Environmental and seasonal allergies: Code(s): J30.89 - Other allergic rhinitis Category: Medical Plan: Continue Loratadine 10 mg QD PRN and Fluticasone 50 mcg nasal spray QD PRN She also has Albuterol HFA that she uses PRN and an Epipen that she keeps with her at all times for emergency use in case of anaphylactic reactions (9) Vitamin D deficiency: Code(s): E55.9 - Vitamin D deficiency, unspecified Category: Medical Plan: Patient is advised that her Vitamin D level is still low on her recent labs and she should start taking Vitamin D3 2000 units QD again (10) Vitamin B12 deficiency: Code(s): E53.8 - Deficiency of other specified B group vitamins Category: Medical Plan: Continue Vitamin B12 tablets 1000 mcg every other day (11) Folate deficiency: Code(s): E53.8 - Deficiency of other specified B group vitamins Category: Medical Plan: Continue Folic acid 1 mg QD (12) Bleeds easily: Code(s): D69.9 - Hemorrhagic condition, unspecified Category: Medical Plan: She was sent for some additional labs for further evaluation, including factor V Leiden and von Willebrand's factor Factor V Leiden is still pending but her von Willebrand's factor came back normal (13) Anxiety: Code(s): F41.9 - Anxiety disorder, unspecified Category: Medical Plan: Patient was on Bupropion SR 300 mg Q AM previously but she self-discontinued this sometime last year and does not wish to take anything else at this time for anxiety and feels that she has it under control at present (14) Overweight (BMI 25.0-29.9): Code(s): E66.3 - Overweight Category: Medical Plan: Reinforced diet/exercise as tolerated/lose weight Plan Follow up in 6 months Orders: Orders Comprehensive [place]. Panel Fast 6 Months E78.00 - Pure hypercholesterolemia, unspecified Complete Blood Count Auto Diff 6 Months D64.9 - Anemia, unspecified Lipid Panel 6 Months E78.00 - Pure hypercholesterolemia, unspecified TSH reflex Free T4 6 Months E78.00 - Pure hypercholesterolemia, unspecified UA CC w/rflx Micro + Cult 6 Months R30.0 - Dysuria Vitamin D 25-OH Total 6 Months E55.9 - Vitamin D deficiency, unspecified Vitamin B12 and Folate 6 Months E53.8 - Deficiency of other specified B group vitamins Referrals Neurology Referral R55 - Syncope and collapse Medications: Refilled atorvastatin 10 mg PO BEDTIME 90 tabs 3RF 90 days
== END 2024-12-15 17:35 | disposition home or self-care (01) ==
LOC: HO.HMCH 16:53
PROVIDERS: Visit Provider Internal Medicine
DX: I10 Essential (primary) hypertension (principal); R00.2 Palpitations; R55 Syncope and collapse; E78.00 Pure hypercholesterolemia, unspecified; R19.7 Diarrhea, unspecified; L40.9 Psoriasis, unspecified; K21.9 Gastro-esophageal reflux disease without esophagitis; J30.89 Other allergic rhinitis; E55.9 Vitamin D deficiency, unspecified; E53.8 Deficiency of other specified B group vitamins; D69.9 Hemorrhagic condition, unspecified; F41.9 Anxiety disorder, unspecified; E66.3 Overweight

== ENCOUNTER → 2024-12-15 16:52 | Outpatient (BNVA) | payer MEDICARE, SELFPAY | PROVIDERS: Visit Provider Internal Medicine | DX: I10 Essential (primary) hypertension (principal); R55 Syncope and collapse; R00.2 Palpitations; E78.00 Pure hypercholesterolemia, unspecified; R19.7 Diarrhea, unspecified; L40.9 Psoriasis, unspecified; K21.9 Gastro-esophageal reflux disease without esophagitis; J30.89 Other allergic rhinitis; E55.9 Vitamin D deficiency, unspecified; E53.8 Deficiency of other specified B group vitamins; F41.9 Anxiety disorder, unspecified; E66.3 Overweight; Z68.27 Body mass index [BMI] 27.0-27.9, adult | CPT/HCPCS: 96127; 99212 ==

== ENCOUNTER 2024-12-24 09:18 | Outpatient (AMB) | payer MEDICARE, SELFPAY ==
--- NOTE | 2024-12-24 09:30 | A.OFFVIS_ITS ---
Intake Visit Reasons: follow up results and leg pain Allergies bee pollen (bees) Allergy (Severe, Verified 12/15/24 21:23) Anaphylaxis prochlorperazine (From COMPAZINE) Allergy (Severe, Verified 12/15/24 21:23) SEIZURES HPI Comments Details: 69 yo RH woman with h/o fainting episode in young age and anxiety disorder who was having episodes making her confused or pass out for many years. They can happen a few times a day or not for a few days. There was no known trigger and they it has happened in sitting, standing, or walking situations. She has noted that it happened more after eating. Typically, she had sudden onset of an odd feeling, like a heaviness in the head, when she would try to lay or sit or down. Sometimes it may pass quickly but at times, she was either unresponsive or unaware for a few minutes. There was no witness and she never had any injury, tongue bite, or incontinence with it. Coming out of it, she had the feeling one gets coming out of anesthesia. But she also felt anxious and heart racing feeling. She is presenting with episodes of unresponsiveness and confusion. These episodes have been part of her health history for many years and are characterized by a sudden onset of an odd sensation, specifically heaviness in the head. There are no specific triggers, and they can happen during various states like sitting, standing, or walking, with increased frequency postprandially. The frequency is variable; episodes may happen multiple times a day or go several days without occurring. She describes a transient period of unresponsiveness or lack of awareness without associated injuries or incontinence. These episodes typically resolve with sensations similar to emergence from anesthesia, accompanied by anxiety and tachycardia, and at times, a shaky feeling. The initial occurrence was during a standing task at work, prompting a need to sit. Recently, an evening episode post-dinner endured for about 10-15 minutes. Despite a normal EEG result, the evaluation for complex partial seizure disorder remains a consideration. This patient also reports a long-standing diagnosis of neuropathy that has worsened over time, with symptoms of aching and tightness from the knees downwards, now also affecting the upper limbs. Past nerve conduction studies indicated right-side predominance, although symptoms are bilateral. Fibromyalgia is another longstanding diagnosis the patient considers might exacerbate her neuropathic symptoms. Anticipating a move, she seeks comprehensive assessment and management of her conditions. [facility] Medical History (Updated 12/24/24 @ 11:25 by Queenie Goodson MD) Peripheral neuropathy Palpitations GERD (gastroesophageal reflux disease) Folate deficiency Vitamin B12 deficiency Vitamin D deficiency Arthritis Overweight (BMI 25.0-29.9) Anxiety Pure hypercholesterolemia MGUS (monoclonal gammopathy of unknown significance) Fibromyalgia Neuropathy of right lower extremity Psoriasis Surgical History History of esophagogastroduodenoscopy (EGD) History of colonoscopy History of removal of cyst Status post cryoablation History of bowel resection History of tonsillectomy Family History Father Mother Bladder cancer Arthritis Sister Breast cancer Sister Breast cancer Maternal Aunt Breast cancer Social History Housing: House Alcohol intake: never Patient Tobacco Use Status: Former Tobacco user Tobacco use type: Cigarette e-Cigarette/Vaping Use: Never Used Second Hand Smoke Exposure: No service: No Current occupational status: employed Cognitive needs: No Hearing needs: No Vision needs: Yes (reading glasses) Physical Exam Neuro Other: Mental Status: Alert and oriented to person, place, and time. Normal attention. Normal spontaneous speech, fluency, and comprehension. No obvious issues with mood and memory. Affect is appropriate. Cranial Nerves: CN II: Visual siddiqi full to confrontation, visual acuity intact. CN III, IV, : Pupils equal, round, reactive to light and accommodation. Extraocular movements are normal. CN V: Facial sensation is normal. CN VII: Facial movements symmetrical. CN VIII: Hearing intact to bedside conversation is normal. CN IX, X: Palate elevates symmetrically. CN XI: Shoulder shrug and head turn symmetrical. CN XII: Tongue midline without atrophy or fasciculations. Motor: Bulk and tone normal in all extremities. No significant muscle weakness in arms and legs. No drift. Reflexes: Deep tendon reflexes 2+ and symmetric. Plantar response down-going bilaterally. Coordination: [id number] and glol-uw-[id number] testing normal. No dysmetria. Gait and Station: No obvious gait abnormality. No ataxia or instability. Extrapyramidal: Full facial expressions and blinking. No rigidity. Movements are appropriate with no tremor or abnormality. Speech: Normal; no dysarthria or tremor. Assessment & Plan Assessment & Plan (1) Complex partial seizure disorder: Comment: Routine EEG at [facility] in July 2024: WNL MRI brain WWO at [facility] [place] in Sep 2024: Mild scattered punctate MVD Code(s): G40.209 - Localization-related (focal) (partial) symptomatic epilepsy and epileptic syndromes with complex partial seizures, not intractable, without status epilepticus Category: Medical Qualifiers: Epilepsy type: partial symptomatic Intractability: not intractable Status epilepticus: without status epilepticus Qualified Code(s): G40.209 - Localization-related (focal) (partial) symptomatic epilepsy and epileptic syndromes with complex partial seizures, not intractable, without status epilepticus (2) Cerebral microvascular disease: Code(s): I67.89 - Other cerebrovascular disease Category: Medical (3) Peripheral neuropathy: Code(s): G62.9 - Polyneuropathy, unspecified Category: Medical Qualifiers: Peripheral neuropathy type: polyneuropathy, unspecified Qualified Code(s): G62.9 - Polyneuropathy, unspecified Plan Impression: 1. Clinical suspicion of complex partial seizure disorder 2. Peripheral neuropathy type of symptoms Recommendations 1. 48 hour ambulatory EEG 2. EMG nerve conduction study right arm or leg to screen for neuropathy Orders: Orders NE nerve conduction velocity Today G62.9 - Polyneuropathy, unspecified EEG 48hr Ambulatory Today G40.209 - Localization-related (focal) (partial) symptomatic epilepsy and epileptic syndromes with complex partial seizures, not intractable, without status epilepticus NE electromyogram (EMG) Today G62.9 - Polyneuropathy, unspecified Coding Level of Care Code Est Pt Level 4 (70471) Diagnoses Partial symptomatic epilepsy with complex partial seizures, not intractable, without status epilepticus G40.209 Epilepsy type: partial symptomatic Intractability: not intractable Status epilepticus: without status epilepticus Cerebral microvascular disease I67.89 Peripheral polyneuropathy G62.9 Peripheral neuropathy type: polyneuropathy, unspecified
== END 2024-12-24 09:52 | disposition home or self-care (01) ==
LOC: HO.HSM 09:19
PROVIDERS: Visit Provider Psychiatry & Neurology Neurology
DX: G40.209 Localization-related (focal) (partial) symptomatic epilepsy and epileptic syndromes with complex partial seizures, not intractable, without status epilepticus (principal); I67.89 Other cerebrovascular disease; G62.9 Polyneuropathy, unspecified
CPT/HCPCS: 99214

== ENCOUNTER → 2024-12-24 09:18 | Outpatient (BNVA) | payer MEDICARE, SELFPAY | PROVIDERS: Visit Provider Psychiatry & Neurology Neurology | DX: G40.209 Localization-related (focal) (partial) symptomatic epilepsy and epileptic syndromes with complex partial seizures, not intractable, without status epilepticus (principal); G62.9 Polyneuropathy, unspecified; I67.89 Other cerebrovascular disease | CPT/HCPCS: 99212 ==

== ENCOUNTER 2025-01-08 10:44 | Outpatient (REF) | payer MEDICARE, SELFPAY ==
--- NOTE | 2025-01-08 10:45 | EMG_ITS ---
Chief complaint:?G62.9 Polyneuropathy, unspecified Reason for referral: Pain burnning Referred by:?Dr Goodson Procedure done: Right upper and lower extremities NCS/EMG right median, ulnar, peroneal, and tibial motor studies were performed. Tibial H-reflex was obtained. Motor F responses were obtained. Right median and ulnar mixed sensory, median and lateral mixed plantars sensory, median and lateral antecubital brachial sensory, radial, superficial peroneal, and sural sensory studies were performed. Right 2nd and 5th digit ortho sensory studies were performed. EMG was performed. Findings: Motor distal latencies, amplitudes, and conduction velocities were with a normal range. Similar pattern was noted with sensory studies except mixed plantars sensory studies in the foot. Later responses were normal. Needle examination was normal. 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 Otherwise no significant abnormality noted. [place] [id number] 2 extremities [facility]
== END 2025-01-08 10:45 | disposition home or self-care (01) ==
LOC: HO.NEURO 10:44
PROVIDERS: PCP Internal Medicine; Visit Provider Psychiatry & Neurology Neurology
DX: G62.89 Other specified polyneuropathies (principal)
CPT/HCPCS: 95886; 95913

== ENCOUNTER → 2025-01-08 10:45 | Outpatient (BNV) | payer MEDICARE, SELFPAY | PROVIDERS: PCP Internal Medicine; Visit Provider Psychiatry & Neurology Neurology | DX: G62.89 Other specified polyneuropathies (principal) | CPT/HCPCS: 95886; 95913 ==

== ENCOUNTER 2025-01-17 09:53 | Outpatient (REF) | payer MEDICARE, SELFPAY ==
--- NOTE | ~2025-01-17 | MM_ITS ---
EXAMINATION: MM SCREENING DIGITAL BREAST TOMOSYNTHESIS, BILATERAL CLINICAL INFORMATION: Screening. Asymptomatic. History of left biopsy. COMPARISON: Comparison made to multiple prior, most recent December 04, 2023, and most remote November 27, 2016. TECHNIQUE: Digital breast tomosynthesis is performed in mediolateral oblique and craniocaudal views along with computer-aided detection (CAD). Synthesized 2D images are generated from the tomosynthesis. FINDINGS: BREAST COMPOSITION: There are scattered areas of fibroglandular density. RIGHT BREAST: Grouped calcifications in the upper outer quadrant middle depth are not significantly changed from 2019. No significant masses, suspicious calcifications or other abnormalities are seen. LEFT BREAST: There is an approximately 0.5 cm asymmetry in the lower breast at 4.5 cm from the nipple on the MLO view (MLO 28/73), without definite correlate on the CC view. No suspicious calcifications or other abnormalities are seen. MM/MM tomosynthesis screening BI IMPRESSION: RIGHT BREAST: Benign, no mammographic evidence of malignancy. Normal interval follow-up is recommended in 12 months. LEFT BREAST: 0.5 cm asymmetry in the lower breast at the 4.5 cm from the nipple on the MLO view, without definite correlate on the CC view. ASSESSMENT: BI-RADS: Category 0: Incomplete - Need additional Imaging Evaluation RECOMMENDATION: 1. Additional views of the left breast 2. Targeted ultrasound if warranted after review of the additional views. 3. Radiology department staff will contact the patient for additional imaging. FOLLOW-UP: Additional Imaging required This examination should not preclude the clinical evaluation of a suspicious palpable abnormality. This patient's information was entered into a reminder system with a target due date for their next mammogram. Electronically signed by: Letty Macdonald MD 01/20/2025 07:52 AM [facility] [place]
== END 2025-01-17 09:54 | disposition home or self-care (01) ==
LOC: HO.MAMMO 09:53
PROVIDERS: Visit Provider Internal Medicine
DX: Z12.31 Encounter for screening mammogram for malignant neoplasm of breast (principal)
CPT/HCPCS: 77063; 77067

== ENCOUNTER → 2025-01-17 10:15 | Outpatient (BNV) | payer MEDICARE, SELFPAY | PROVIDERS: Visit Provider Radiology Body Imaging | DX: Z12.31 Encounter for screening mammogram for malignant neoplasm of breast (principal) | CPT/HCPCS: 77063; 77067 ==

== ENCOUNTER 2025-01-19 08:24 | Outpatient (REF) | payer MEDICARE, SELFPAY ==
--- NOTE | 2025-01-19 08:30 | EEG_ITS ---
48 Ambulatory EEG History: H/O fainting episodes, anxiety disorder, peripheral neuropathy, palpitations, GERD, folate deficiency, vitamin B12 and D deficiency, arthritis, hypercholesterolemia, MGUS, fibromyalgia, psoriasis- pt having episodes of confusion/ lightheadedness with possible LOC - these events are unwitnessed with sudden onset and full durations are unknown- events can happen multiple times a day- Routine EEG was normal Medication: not listed Technical Description Behavioral state: pleasant, cooperative but restless at times State of Consciousness: awake and asleep Skull defect:no Sedation:no Handedness: Right Duration of study: 48 Hour Ambulatory Study Diary entries / Symptoms: Day I pt c/o an event don't know if it happened, didn't feel right for a few minutes Day II - pt remained asymptomatic during this study [employer] Developer Comments: pt was restless and kept touching, itching head resulting in loose wires at times Description: This is a 16 channel 48 hour ambulatory EEG. Patient reported symptoms of not feeling right on 1st day and no symptoms on 2nd day. Each day of EEG was separately reviewed and included wakefulness and sleep. Both days EEG was somewhat limited because of some lead related artifacts. During wakefulness, background EEG rhythm was 16-20 hertz 5-20 microvolt posteriorly and lower amplitude fast anteriorly. No EEG abnormalities were noted around patients notation of symptom. Left temporal benign looking sharp theta discharges were noted. Cardiac lead did not reveal any significant abnormality. No definite sharp waves or spikes were noted. Impression: Somewhat limited study because of lead artifact. No obvious epileptic tendency noted. MTDD
== END 2025-01-19 08:25 | disposition home or self-care (01) ==
LOC: HO.NEURO 08:24
PROVIDERS: PCP Internal Medicine; Visit Provider Psychiatry & Neurology Neurology
DX: R56.9 Unspecified convulsions (principal)
CPT/HCPCS: 95700; 95705; 95708

== ENCOUNTER → 2025-01-19 08:30 | Outpatient (BNV) | payer MEDICARE, SELFPAY | PROVIDERS: PCP Internal Medicine; Visit Provider Psychiatry & Neurology Neurology | DX: R56.9 Unspecified convulsions (principal) | CPT/HCPCS: 95721 ==

== ENCOUNTER 2025-02-02 10:36 | Outpatient (AMB) | payer MEDICARE, SELFPAY ==
[2025-02-02 10:38] VITALS: BP 170/83; PULSE 79; BMI 26.7
--- NOTE | 2025-02-02 10:38 | A.OFFVIS_ITS ---
Vital Signs 02/02/25 10:38 Height 5 ft 1 in Weight 141 lb 1.533 oz BMI 26.7 BP 170/83 H Blood Pressure Location Lt brachial Position Sitting Pulse 79 Intake Visit Reasons: 6 month follow up Intake Note: Franca presents in the office as a 6 month follow up. CC: She states that she has no concerns at all - doing a lot better since her last procedure. 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: No Allergies bee pollen (bees) Allergy (Severe, Verified 02/02/25 10:41) Anaphylaxis prochlorperazine (From COMPAZINE) Allergy (Severe, Verified 02/02/25 10:41) SEIZURES HPI HPI 6 month follow up: Details: 70-year-old female being seen for f/u RECAP: Had long standing issues with diarrhea going on for 20 yrs at least she did have some good response with colesevelam which had reduced the severity but not taken it away she had bloating and ruq pain and discomfort TESTS celiac serology nml TSH nml CBC nml, eos nml neg GI hormone panel fecal colleen - neg fecal elastase- nml strongyloides- negative EGD/colonoscopy: 2021 tubular adenomas x 2, chronic duodenitis, neg TI and colon bx CTe: neg for inflammation 04/09/24 Endoscopy Findings: schatzki ring hiatal hernia esophagitis Colonoscopy Findings: colon polyp internal hemorrhoids path: active esophagitis, tubular adenoma'regular bx are neg EGD 12/20: esophagitis balloon dilation to 19 mm -small tear noted path chronic active inflammation at GEJ INTERIM: she feels swallowing is much better she has no complaints, of abdominal pain, no diarrhea feels happy and planning for [place] EXAM: GENERAL: The patient is well developed and nontoxic. VITAL SIGNS:see workflow HEENT: Nonicteric sclerae, PERRLA, EOMI. Oropharynx clear. Moist mucous membranes. Conjunctivae appear well perfused. No thyroid mass. CHEST: Chest wall is nontender. HEART: Regular rate and rhythm without murmurs. LUNGS: Clear to auscultation bilaterally. ABDOMEN: Soft, positive bowel sounds, nontender, no organomegaly.no flank tenderness SKIN: No rash, no excessive bruising, petechiae, or purpura. NEUROLOGIC: Cranial nerves II-XII intact without motor/sensory deficit. Psych: normal affect A/P: 1/ dysphagia, improved from before with dilation, maybe due to chronic reflux PLAN: 1/ repeat EGD prn and cont with anti acid suppression as doing PFSH Medical History Peripheral neuropathy Palpitations GERD (gastroesophageal reflux disease) Folate deficiency Vitamin B12 deficiency Vitamin D deficiency Arthritis Overweight (BMI 25.0-29.9) Anxiety Pure hypercholesterolemia MGUS (monoclonal gammopathy of unknown significance) Fibromyalgia Neuropathy of right lower extremity Psoriasis Surgical History History of esophagogastroduodenoscopy (EGD) History of colonoscopy History of removal of cyst Status post cryoablation History of bowel resection History of tonsillectomy Family History Father Mother Bladder cancer Arthritis Sister Breast cancer Sister Breast cancer Maternal Aunt Breast cancer Social History Housing: House Alcohol intake: never Patient Tobacco Use Status: Former Tobacco user Tobacco use type: Cigarette e-Cigarette/Vaping Use: Never Used Second Hand Smoke Exposure: No service: No Current occupational status: employed Cognitive needs: No Hearing needs: No Vision needs: Yes (reading glasses) Physical Exam Vital Signs: Last Vital Signs Pulse 79 02/02/25 10:38 BP 170/83 H 02/02/25 10:38 BMI result Body Mass Index 26.7 Assessment & Plan Assessment & Plan (1) Dysphagia: Code(s): R13.10 - Dysphagia, unspecified Category: Medical Plan: as above Medications: Discontinued Magic Mouthwash Diphen/Lido/Antacid 1:1:1 Lidocaine Viscous 2 % 80mL; diphenhydramine 12.5 mg/5 mL 80mL; aluminum-mag hydrox-simeth [id number]/5mL 80mL Discontinued Reason: Patient no longer taking 10 mL PO QID 240 mL 0RF baclofen Discontinued Reason: Patient no longer taking 20 mg PO TID 10 days PRN 30 tabs 2RF muscle spasms/right low back pain Coding Level of Care Code Est Pt Level 3 (16551) Diagnoses Dysphagia R13.10
== END 2025-02-02 10:53 | disposition home or self-care (01) ==
LOC: HO.HGI 10:37
PROVIDERS: Visit Provider Internal Medicine Gastroenterology
DX: R13.10 Dysphagia, unspecified (principal)
CPT/HCPCS: 99213

== ENCOUNTER → 2025-02-02 10:36 | Outpatient (BNVA) | payer MEDICARE, SELFPAY | PROVIDERS: Visit Provider Internal Medicine Gastroenterology | DX: R13.10 Dysphagia, unspecified (principal); K20.90 Esophagitis, unspecified without bleeding | CPT/HCPCS: 99212 ==

== ENCOUNTER 2025-02-10 12:42 | Outpatient (AMB) | payer MEDICARE, SELFPAY ==
--- NOTE | 2025-02-10 13:00 | MHC.OFFVIS ---
Intake Visit Reasons: results Allergies bee pollen (bees) Allergy (Severe, Verified 02/02/25 10:41) Anaphylaxis prochlorperazine (From COMPAZINE) Allergy (Severe, Verified 02/02/25 10:41) SEIZURES HPI Comments Details: The patient is a 69-year-old female presenting with episodes of unresponsiveness and confusion. These episodes have been part of her health history for many years and are characterized by a sudden onset of an odd sensation, specifically heaviness in the head. There are no specific triggers, and they can happen during various states like sitting, standing, or walking, with increased frequency postprandially. The frequency is variable; episodes may happen multiple times a day or go several days without occurring. She describes a transient period of unresponsiveness or lack of awareness without associated injuries or incontinence. These episodes typically resolve with sensations similar to emergence from anesthesia, accompanied by anxiety and tachycardia, and at times, a shaky feeling. The initial occurrence was during a standing task at work, prompting a need to sit. Recently, an evening episode post-dinner endured for about 10-15 minutes. Despite a normal EEG result, the evaluation for complex partial seizure disorder remains a consideration. This patient also reports a long-standing diagnosis of neuropathy that has worsened over time, with symptoms of aching and tightness from the knees downwards, now also affecting the upper limbs. Past nerve conduction studies indicated right-side predominance, although symptoms are bilateral. Fibromyalgia is another longstanding diagnosis the patient considers might exacerbate her neuropathic symptoms. Anticipating a move, she seeks comprehensive assessment and management of her conditions. [facility] Medical History Peripheral neuropathy Palpitations GERD (gastroesophageal reflux disease) Folate deficiency Vitamin B12 deficiency Vitamin D deficiency Arthritis Overweight (BMI 25.0-29.9) Anxiety Pure hypercholesterolemia MGUS (monoclonal gammopathy of unknown significance) Fibromyalgia Neuropathy of right lower extremity Psoriasis Surgical History History of esophagogastroduodenoscopy (EGD) History of colonoscopy History of removal of cyst Status post cryoablation History of bowel resection History of tonsillectomy Family History Father Mother Bladder cancer Arthritis Sister Breast cancer Sister Breast cancer Maternal Aunt Breast cancer Social History Housing: House Alcohol intake: never Patient Tobacco Use Status: Former Tobacco user Tobacco use type: Cigarette e-Cigarette/Vaping Use: Never Used Second Hand Smoke Exposure: No service: No Current occupational status: employed Cognitive needs: No Hearing needs: No Vision needs: Yes (reading glasses) Review of Systems Narrative - Neurologic: Reports episodes of unresponsiveness, confusion, and heaviness in the head. Denies any injuries or incontinence during episodes. - Cardiovascular: Reports racing heart feeling following episodes. - Musculoskeletal: Reports bilateral limb ache and tightness due to neuropathy, affecting both lower and upper extremities. - Psychological: Reports anxiety following episodes. Physical Exam Neuro Other: Mental Status: Alert and oriented to person, place, and time. Normal attention. Normal spontaneous speech, fluency, and comprehension. Cranial Nerves: CN II: Visual siddiqi full to confrontation, visual acuity intact. CN III, IV, : Pupils equal, round, reactive to light and accommodation. Extraocular movements are normal. CN V: Facial sensation is normal. CN VII: Facial movements symmetrical. CN VIII: Hearing intact to bedside conversation is normal. CN IX, X: Palate elevates symmetrically. CN XI: Shoulder shrug and head turn symmetrical. CN XII: Tongue midline without atrophy or fasciculations. Extrapyramidal: Full facial expressions and blinking. No rigidity. Movements are appropriate with no tremor or abnormality. Speech: Normal; no dysarthria or tremor. Assessment & Plan Assessment & Plan (1) Complex partial seizure disorder: Comment: 48 hr EEG at [facility] in Dec 2024: Limited but no obvious abnormality Routine EEG at [facility] in July 2024: WNL MRI brain WWO at [facility] in Sep 2024: Mild scattered punctate MVD Code(s): G40.209 - Localization-related (focal) (partial) symptomatic epilepsy and epileptic syndromes with complex partial seizures, not intractable, without status epilepticus Category: Medical (2) Peripheral neuropathy: Comment: EMG/NCS R arm and leg at [facility] in 2024: R distal tibial neuropathy in foot Code(s): G62.9 - Polyneuropathy, unspecified Category: Medical Qualifiers: Peripheral neuropathy type: polyneuropathy, unspecified Qualified Code(s): G62.9 - Polyneuropathy, unspecified Plan Impression recommendations: At this time complex partial seizure disorder diagnosis was not confirmed. She said that she was very stress due to her household situation. She resisted taking any medicine for control of symptoms. She was reassured and educated and was advised to contact us again if symptoms would recur. Otherwise management of anxiety and stress was recommended. Coding Level of Care Code Est Pt Level 4 (75381) Diagnoses Complex partial seizure disorder G40.209 Peripheral polyneuropathy G62.9 Peripheral neuropathy type: polyneuropathy, unspecified
== END 2025-02-10 13:11 | disposition home or self-care (01) ==
LOC: HO.HSM 12:43
PROVIDERS: PCP Internal Medicine; Visit Provider Psychiatry & Neurology Neurology
DX: G40.209 Localization-related (focal) (partial) symptomatic epilepsy and epileptic syndromes with complex partial seizures, not intractable, without status epilepticus (principal); G62.9 Polyneuropathy, unspecified
CPT/HCPCS: 99214

== ENCOUNTER → 2025-02-10 12:42 | Outpatient (BNVA) | payer MEDICARE, SELFPAY | PROVIDERS: PCP Internal Medicine; Visit Provider Psychiatry & Neurology Neurology | DX: G40.209 Localization-related (focal) (partial) symptomatic epilepsy and epileptic syndromes with complex partial seizures, not intractable, without status epilepticus (principal); G62.9 Polyneuropathy, unspecified | CPT/HCPCS: 99212 ==

== ENCOUNTER 2025-02-24 08:45 | Outpatient (REF) | payer MEDICARE, SELFPAY ==
--- NOTE | ~2025-02-24 | MM_ITS ---
EXAMINATION: MM DIAGNOSTIC DIGITAL BREAST TOMOSYNTHESIS, LEFT Left Limited ultrasound. CLINICAL INFORMATION: Call back from screening for focal asymmetry in the lower central left breast. COMPARISON: Mammography: [facility] on PACS. TECHNIQUE: Digital breast tomosynthesis is performed in both the craniocaudal and mediolateral oblique views along with computer-aided detection (CAD). Synthesized 2D images are generated from the tomosynthesis. FINDINGS: There are scattered areas of fibroglandular density. Focal asymmetry in the lower central left breast partially effaces on additional imaging projections. No suspicious calcifications or other abnormal findings. Targeted color Doppler ultrasound scanning from 4-8 o'clock in the lower central left breast demonstrates normal fibroglandular breast tissue. There is no sonographic abnormal finding. MM/MM tomosynthesis added views L IMPRESSION: Focal asymmetry lower central left breast which partially effaces and without sonographic correlate. Recommend 6 month follow-up for further evaluation of stability. ASSESSMENT: BI-RADS Category 3: Probably benign RECOMMENDATION: 6 Month F/U Results were provided to the patient at time of visit by the technologist. This patient's information was entered into a reminder system with a target due date for their next mammogram. Electronically signed by: Frieda Michel DO 02/24/2025 11:43 AM [facility]
== END 2025-02-24 08:46 | disposition home or self-care (01) ==
LOC: HO.MAMMO 08:45
PROVIDERS: PCP Internal Medicine; Visit Provider Internal Medicine
DX: N64.89 Other specified disorders of breast (principal)
CPT/HCPCS: 76642; 77061; 77065

== ENCOUNTER → 2025-02-24 09:00 | Outpatient (BNV) | payer MEDICARE, SELFPAY | PROVIDERS: PCP Internal Medicine; Visit Provider Internal Medicine | DX: R92.8 Other abnormal and inconclusive findings on diagnostic imaging of breast (principal) | CPT/HCPCS: 76642; 77065; G0279 ==